=== PATIENT | male | born 1990 | race Caucasian/White ===

== ENCOUNTER 2025-01-05 18:37 | Observation (INO) | payer OTHER, SELFPAY ==
--- OUTSIDE RECORDS SUMMARY | 2025-01-05 18:40 | XMS_ITS | Clinical Summary ---
Author Organization [facility] Address [address] [place] [id number] Care Team Providers Care Xray Tech Name Role Phone None, Provider MD Primary Care Provider Unavaila ble Allergies Active Allergy Reactions Criticality Noted Date Comments Escitalopram Nausea and Vomiting Low 02/16/2023 Haloperidol Other (see comment) 02/25/2022 Oral/facial TD symptoms Prochlorperazine Anxiety,Other (see comment) Low 04/11/2022 Causes anxiety Medications hydrOXYzine (ATARAX) 25 MG tablet Take 1 tablet (25 mg total) by mouth 4 (four) times daily as needed for Anxiety. Active ondansetron (ZOFRAN) 4 MG tablet Take 1 tablet (4 mg total) by mouth every 8 (eight) hours as needed for Nausea. 20 tablet 05/13/2024 Active Family History Medical History Relation Comments Mental Health Brother SUICIDE Brother Cancer Mother Diabetes Mother Relation Status Comments Brother Mother BREAST WITH METS Social History Tobacco Use Types Packs/Day Years Used Date Smoking Tobacco: Every Day Cigarettes Smokeless Tobacco: Never Alcohol Use Standard Drinks/Week Comments Yes 0 (1 standard drink = 0.6 oz pur e alcohol) SOCIALLY Sex and Gender Information Value Date Recorded Sex Assigned at Not on file Legal Sex Male 7:25 PM CDT Gender Identity Not on file Sexual Orientation Not on file Last Filed Vital Signs Vital Sign Reading Time Taken Comments Blood Pressure 127/89 05/13/2024 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 Pulse 105 05/13/2024 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 Temperature 36.1 C (97 F) 05/13/2024 5:10 PM CATHEAD OPERATOR Respiratory Rate 13 05/13/2024 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 Oxygen Saturation 98% 05/13/2024 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 Inhaled Oxygen Concentration - - Weight 81.6 kg (180 lb) 05/13/2024 5:10 PM CATHEAD OPERATOR Height 193 cm (6' 4) 05/13/2024 5:10 PM CATHEAD OPERATOR Body Mass Index 21.91 05/13/2024 5:10 PM CATHEAD OPERATOR Plan of Treatment Health Maintenance Due Date Last Done Comments Annual Physical 1993 Hepatitis C 2008 DTaP, Tdap and Td Vaccines ( 2 - Tdap) 2009 12/29/1995 Hepatitis B Vaccines (1 of 3 - 19+ 3-dose series) 2009 Pneumococcal Vaccine: Pediat rics (0 to 5 Years) and At-Risk Patients (6 to 49 Years) (1 of 2 - PCV) 2009 COVID-19 Vaccine (2 - 2023-2 5 season) 2024 07/09/2021 HPV Vaccines Aged Out No longer eligi ble based on patient's age to complete this topic Meningococcal B Vaccine Aged Out No l onger eligible based on patient's age to complete this topic Meningococcal Vaccine Aged Out No benji matt eligible based on patient's age to complete this topic RSV Immunizations Under 20 Months Aged Out No longer eligible based on patient's age to complete this topic Advance Directives Documents on File Type Date Recorded 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 Advance Directives and Living Will 04/06/2014 12:00 AM ADVANCED DIRECTIVES Advance Directives and Living Will 04/06/2014 12:00 AM ADVANCED DIRECTIVES Advance Directives and Living Will 04/05/2014 12:00 AM ADVANCED DIRECTIVES Advance Directives and Living Will 04/05/2014 12:00 AM ADVANCED DIRECTIVES Advance Directives and Living Will 04/02/2014 12:00 AM ADVANCED DIRECTIVES Advance Directives and Living Will 04/02/2014 12:00 AM ADVANCED DIRECTIVES Advance Directives and Living Will 03/31/2014 12:00 AM ADVANCED DIRECTIVES Advance Directives and Living Will 03/31/2014 12:00 AM ADVANCED DIRECTIVES Advance Directives and Living Will 03/31/2014 12:00 AM ADVANCED DIRECTIVES Advance Directives and Living Will 06/26/2013 12:00 AM ADVANCED DIRECTIVES Advance Directives and Living Will 06/26/2013 12:00 AM ADVANCED DIRECTIVES Advance Directives and Living Will 04/28/2013 12:00 AM ADVANCED DIRECTIVES Advance Directives and Living Will 03/24/2013 12:00 AM ADVANCED DIRECTIVES Advance Directives and Living Will 12/01/2012 12:00 AM ADVANCED DIRECTIVES Advance Directives and Living Will 11/29/2012 12:00 AM ADVANCED DIRECTIVES Care Teams Xray Tech Relationship Specialty Start Date End Date None, Provider, PCP - General 04/03/18
--- OUTSIDE RECORDS SUMMARY | 2025-01-05 18:40 | XMS_ITS | Encounter Summary ---
Author Organization [facility] Address 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 No hx sz. +N/V * Auth/Cert (Routine) Specialty Diagnoses / Procedures Referred By Crescencio t Referred To Contact Emergency Medicine [facility] Emergency Department [address] [place] [address] Phone: tel: fax: Referral ID Status Reason Start Date Expiration Date Visits Re quested Visits Authorized [id number] 1 1 Encounter Details Date Type Department Care Team (Latest Contact Info) Description 01/02/2025 9:18 AM CDT - 01/05/2025 8:47 AM CDT Hospital Encounter [facility] Med Surg Step Down [facility] [address] [place] [address] Keegan Salgado MD [address] [place] [address] Kenneth Cooper MD [address] [place] [address] Edd Malone DO [address] [place] [address] Khris Gandhi MD [address] [place] [address] Alcohol intoxication delirium with moderate or severe use disorder ([facility]) Discharge Disposition: Home or Self Care Social History Tobacco Use Types Packs/Day Years Used Date Smoking Tobacco: Former Cigarettes Smokeless Tobacco: Never Alcohol Use Standard Drinks/Week Comments Yes 70 (1 standard drink = 0.6 oz pure alcohol) 10+ shots a day last 12/01/2023 Feeling Safe Answer Date Recorded Are you in a relationship wi th someone who hurts you emotionally and/or physically? No 01/03/2025 Food Insecurity Answer Date Recorded Patient needs follow up regardin 10/26/2024 Transportation Needs Answer Date Record ed Patient needs follow up regardin 10/26/2024 Housing Stability Answer Date Recorded Social/Environmental Concerns No concerns Utility Needs Answer Date Recorded Patient needs follow up regardin 10/26/2024 Sex and Gender Information Value Date Recorded Sex Assigned at Not on file Legal Sex Male 12:06 PM CDT Gender Identity Not on file Sexual Orientation Not on file documented as of this encounter Last Filed Vital Signs Vital Sign Reading Time Taken Comments Blood Pressure 129/82 01/05/2025 7:00 AM CDT Pulse 63 01/05/2025 7:00 AM CDT Temperature 36.5 C (97.7 F) 01/05/2025 7:00 AM CDT Respiratory Rate 12 01/05/2025 7:00 AM CDT Oxygen Saturation 98% 01/05/2025 7:00 AM CDT Inhaled Oxygen Concentration - - Weight 90.7 kg (200 lb) 01/02/2025 9:17 AM CDT Height 193 cm (6' 4) 01/02/2025 9:17 AM CDT Body Mass Index 24.34 01/02/2025 9:17 AM CDT documented in this encounter Discharge Summaries * Khris Gandhi MD - 01/05/2025 8:01 AM CDT [facility] Adult Hospitalist Discharge Summary Yaneth Henderson 34 y.o. male 1990 CSN: [id number] Date of Admission: 01/02/2025 Date of Discharge: 01/05/2025 Discharging Physician: Khris Gandhi MD LOS: 2 days PCP: No primary care provider on file. Activity: activity as tolerated. Dispo: home Diet: DIET GENERAL Effective Now Code Status at Discharge: Full Code Wound Care: None needed Hospital Course: Yaneth Henderson, a 34-year-old male with a history of alcohol use disorder and depression, was admitted to [facility] on 01/02/2025 for acute alcohol withdrawal. 1 2 He reported consuming 15-20 shots of vodka daily, with his last drink on the morning of admission. 1 3 On presentation, his ethanol level was 130 mg/dL. 1 He was initially treated with IV phenobarbital in the emergency departmentand continued on a phenobarbital taper during his hospitalization. 1 3 The Clinical [place] Withdrawal Assessment for Alcohol (CIWA) protocol was utilized, and lorazepam was administered as needed.4 5 3 Supportive care included IV fluids, thiamine, and folic acid supplementation. He was provided resources for alcohol cessation and encouraged heavily to abstain fully from alcohol going forward.Patient improved significantly with above management and stable for discharge. Follow-up with PCP for further management. Nutritional status and in-house recommendations: Current Diet and/or Nutritional Supplementation ordered: DIET GENERAL Effective Now Admitting Dx: <principal problem not specified> Discharge Diagnoses: Active Hospital Problems Diagnosis Alcohol intoxication delirium with moderate or severe use disorder ([facility]) Resolved Hospital Problems No resolved problems to display. Follow-up: No primary care provider on file. in 5 days. Labs Needing Follow Up: Discharge medications and new prescriptions: Medication List CONTINUE taking these medications acetaminophen 325 mg tablet Commonly known as: TYLENOL Take 2 Tablets (650 mg) by mouth every 6 hours as needed for Other (See Comment) (See admin instructions). Signed by: Dr. Louann Cadena Refills: 0 mirtazapine 30 mg tablet Commonly known as: REMERON Take 30 mg by mouth daily at bedtime. Refills: 0 Consultants: IP CONSULT TO SOCIAL WORK IP CONSULT TO SOCIAL WORK Discharge Lab Data: Lab Results Component Value Date WBC 7.6 01/02/2025 HGB 15.2 01/02/2025 HCT 44.6 01/02/2025 PLT 397 (H) 01/02/2025 NA 137 01/05/2025 CL 103 01/05/2025 K 3.4 (L) 01/05/2025 CO2 21 (L) 01/05/2025 BUN 7 01/05/2025 CREAT 0.93 01/05/2025 GLUCOSE 88 01/05/2025 AST 18 01/05/2025 ALT 19 01/05/2025 CRP <3.0 10/30/2024 Discharge Exam: BP 119/88 (BP Location: Left arm, Patient Position (BP): Supine) Pulse 82 Temp 97.8 ??F (36.6 ??C) (Oral) Resp 21 Ht 6' 4 (1.93 m) Wt 90.7 kg (200 lb) SpO2 95% BMI 24.34 kg/m?? Exam: Gen Alert, NAD Lungs clear to auscultation bilaterally Heart regular rate and rhythm, S1, S2 normal, no murmur, click, rub or gallop Abdomen soft, NT, ND Extremities No edema, WWP Discharge Condition: improving More than 33 minutes were spent in this discharge activity. Krhis Gandhi MD documented in this encounter Discharge Instructions * Discharge Instructions* Conchita Meredith RN - 01/03/2025 9:39 AM CDT If you do not have a PCP you may use the Physician Referral Service [facility] Physician Referral Service is a free, confidential, computerized service staffed by referral specialists. Our co-workers will help you find the names of several physicians that meet your requirements and provide you with their qualifications and background information. Referrals are based on your specific criteria: Requested specialty Office location Primary hospital practice site Specialized training Participation in insurance plans Call Wednesday through Wednesday at [phone] or . During your hospital stay you were cared for by the [facility] Hospitalists. Your primary care physicianwill have access to/or receive records including an updated list of your medications upon your discharge from the hospital. The hospitalist physician provided care while you were in the hospital, nowyour primary care physician will assume that responsibility. Please contact your primary care physician's office for a follow-up as instructed. Please contact your PCPs office regarding any questions or new problems, including medication refills or ANY health care concerns or questions such as but not limited to fever, chills, nausea, vomiting, shortness of breath, chest pain, rash, intolerance to medications, medication side effects, bleeding, abnormal or uncontrolled pain or any other problem which may indicate a need for further revaluation. documented in this encounter Medications at Time of Discharge mirtazapine (REMERON) 30 mg tablet Take 30 mg by mouth daily at bedtime. acetaminophen (TYLENOL) 325 mg tablet Take 2 Tablets (650 mg) by mouth every 6 hours as needed for Other (See Comment) (See admin instructions). 11/12/2024 documented as of this encounter Progress Notes * Carmelita Uribe RN - 01/04/2025 7:27 PM CDT End of Shift Note: Patient ambulated hallway with tech this shift. Neuro: A&O x4. CIWA Q2 completed this shift with scores 3-12. Complaints of headache treated per SEP. Resp: RA. CV: SA-SR with HR 60-90s. SBP 130-150s. Afebrile. GI: 5 BM this shift per patient, provider notified, PRN immodium administered per SEP. Complaints of nausea treated per SEP. : Unmeasured voids per patient bathroom. Skin: No acute skin changes this shift. * Khris Gandhi MD - 01/04/2025 10:46 AM CDT [facility] Adult Hospitalist Progress Note Admit Date: 01/02/2025 Date of Note: 01/04/2025, 10:46 AM LOS: 1 day Assessment and Plan: #Acute alcohol intoxication with subsequent withdrawal Admits to drinking 15-20 shots daily over the past ~2 weeks. Last drink 7/1 AM prior to admission. Ethanol level 130 on arrival. CIWA remains elevated but improving -continue phenobarbital taper + lorazepam prn per CIWA -continue zofran, reglan prn for nausea -s/p IVF -thiamine, FA supplementation -FLD, ADAT -SW for cessation resources Chronic medical issues: Depression: cw mirtazapine 30 qhs MJ use: last used a couple days prior to admission, encourage cessation Nutrition: Current Diet and/or Nutritional Supplementation ordered: DIET GENERAL Effective Now Quality/Safety/Core Measures/Disposition Planning: DVT Prophylaxis - enoxaparin PT POC OT POC Magana catheter:absent Current Code Status -Full Code Plan discussed with patient, questions answered. Estimated Discharge Day: 01/05/2025 Current Planned Disposition - Dispo: home pending clinical improvement related to withdrawal. Anticipate d/c tomorrow 01/05 pending progress. Subjective Previous history of present illness and review of systems have been reviewed today as documented inthe H&P on 01/02/2025; medications, labs, studies, notes, orders and consults have been reviewed.I have reviewed the notes from yesterday. -NAEO -pt generally feeling better today but reports ongoing anxiety/tremulousness. Nausea improving, tolerating PO Objective BP (!) 137/98 Pulse 85 Temp 98.4 ??F (36.9 ??C) (Oral) Resp 10 Ht 6' 4 (1.93 m) Wt 90.7 kg (200 lb) SpO2 99% BMI 24.34 kg/m?? Temp (24hrs), Av ??F (36.7 ??C), Min:97.6 ??F (36.4 ??C), Max:98.4 ??F (36.9 ??C) Incontinent small amount stool (01/03/25 5769) Exam: Gen Alert, NAD Lungs clear to auscultation bilaterally Heart regular rate and rhythm, S1, S2 normal, no murmur, click, rub or gallop Abdomen soft, NT, ND Extremities No edema, WWP Data: I have reviewed all new labs and studies resulted and pertinent ones are noted above Khris Gandhi MD Please contact me via Link Trigger Secure Chat from 7am-7pm After hours please place [facility] * Alanna Whittington PA-C - 01/04/2025 3:53 AM CDT [facility] CROSS COVER NOTE 01/04/25 3:53 AM Contacted for: tele reading arrhythmia Vitals: 01/04/25 0334 BP: (!) 125/95 Pulse: 71 Resp: 15 Temp: 97.6 ??F (36.4 ??C) SpO2: 99% Intervention/Follow up/Discussion: Reviewed chart, patient here for acute ETOH intoxication with subsequent withdrawal. Last drink 01/02. Tonight zigzag appliquer started reading sinus arrhythmia. EKGcompleted confirms arrhythmia with HR 56. Patient had a cardiac event monitor in December of this year which was unremarkable. Patient has been receiving phenobarbital taper and ativan. Patient is asymptomatic. Check electrolytes. Continue tele monitoring Alanna Whittington PA-C Cosigned by Poli Harris MD at 01/04/2025 6:34 AM CDT * Carmelita Uribe, ANNETTE - 01/03/2025 3:49 PM CDT End of Shift Note: Neuro: A&O x4. CIWA Q2 completed this shift with scores 9-17. Complaints of headache treated per SEP. Resp: RA. CV: SB-SR with HR 50-80s. SBP 120-150s. Afebrile. GI: 1 BM this shift per patient. : Urinal at bedside, see chart for urine output. * Oksana, Khris tSringer MD - 01/03/2025 11:02 AM CDT [facility] Adult Hospitalist Progress Note Admit Date: 01/02/2025 Date of Note: 01/03/2025, 11:02 AM LOS: 0 days Assessment and Plan: #Acute alcohol intoxication with subsequent withdrawal Admits to drinking 15-20 shots daily over the past ~2 weeks. Last drink 01/02 AM prior to admission. Ethanol level 130 on arrival -continue phenobarbital taper + lorazepam prn per CIWA -continue zofran, reglan prn for nausea -s/p IVF -thiamine, FA supplementation -FLD, ADAT -SW for cessation resources Chronic medical issues: Depression: cw mirtazapine 30 qhs MJ use: last used a couple days prior to admission, encourage cessation Nutrition: Current Diet and/or Nutritional Supplementation ordered: DIET FULL LIQUID Quality/Safety/Core Measures/Disposition Planning: DVT Prophylaxis - enoxaparin PT POC OT POC Magana catheter:absent Current Code Status -Full Code Plan discussed with patient, questions answered. Estimated Discharge Day: 01/05/2025 Current Planned Disposition - Dispo: home pending clinical improvement. Subjective Previous history of present illness and review of systems have been reviewed today as documented inthe H&P on 01/02/2025; medications, labs, studies, notes, orders and consults have been reviewed.I have reviewed the notes from yesterday. -loraz given overnight for anxiety -pt feeling a bit better today, less nauseated, but still overall not good Objective BP (!) 154/95 Pulse 79 Temp 98.3 ??F (36.8 ??C) Resp 21 Ht 6' 4 (1.93 m) Wt 90.7 kg (200lb) SpO2 98% BMI 24.34 kg/m?? Temp (24hrs), Av.5 ??F (36.9 ??C), Min:98.3 ??F (36.8 ??C), Max:98.6 ??F (37 ??C) Incontinent small amount stool (01/03/25 033) Exam: Gen Alert, NAD Lungs clear to auscultation bilaterally Heart regular rate and rhythm, S1, S2 normal, no murmur, click, rub or gallop Abdomen soft, non-tender. Bowel sounds normal. No masses, No organomegaly Extremities extremities normal, atraumatic, no cyanosis or edema Data: I have reviewed all new labs and studies resulted and pertinent ones are noted above Khris Gandhi MD Please contact me via Link Trigger Secure Chat from 7am-7pm After hours please place E-ticket to [facility] * Vaughn Ross PA-C - 01/03/2025 6:04 AM CDT [facility] CROSS COVER NOTE 01/03/25 6:04 AM Contacted for: pt c/o anxiety 02/11 request something to help. was given. Possible Ativan?CIWA 13 Vitals: 01/03/25 0339 BP: 134/85 Pulse: 70 Resp: 10 Temp: 98.3 ??F (36.8 ??C) SpO2: 98% Intervention/Follow up/Discussion: Reviewed chart, patient here for alcohol withdrawal on phenobarb. -1x 0.5mg PO ativan Vauhgn Ross PA-C Cosigned by Poli Harris MD at 01/03/2025 6:08 AM CDT * Emmy Birch APRN - 01/02/2025 7:48 PM CDT [facility] CROSS COVER NOTE 01/02/25 7:48 PM Contacted for: pt in for ETOH withdrawal. CIWA 17 c/o anxiety 02/11 . Pheno given. Pt requesting something else if possible. Vitals: 01/02/25 1934 BP: (!) 125/95 Pulse: (!) 113 Resp: 19 Temp: 98.5 ??F (36.9 ??C) SpO2: 97% Intervention/Follow up/Discussion: Reviewed chart, patient here for acute alcohol withdrawal, depression. Ativan 1mg IV x1 Emmy Birch APRN Cosigned by Ag Grey DO at 01/02/2025 10:36 PM CDT documented in this encounter H&P Notes * Kaylyn Sousa NP - 01/02/2025 1:09 PM CDT [facility] Adult Hospitalist Admission H & P Patient Name: Yaneth Henderson Primary Care Doctor: No primary care provider on file. Chief Complaint: alcohol withdrawal Assessment and Plan: Acute alcohol withdrawal: drinks 15-20 shots of Vodka daily. No history of withdrawal seizures. Started vomiting 01/01, last drink 01/02. S/p IV phenobarb in ED. Continue taper. Use Zofran, Reglan PRN for nausea/vomiting. Continue IV fluids. Magnesium, thiamine, folic acid. Depression: DERMATOLOGY NURSE remeron Marijuana use: last used a couple of days ago. History of cannabis hyperemesis syndrome. Encourage cessation. DVT prophylaxis: Lovenox Home medication list reviewed: DERMATOLOGY NURSE remeron only PT/OT: no Code Status: full Dispo: anticipate d/c in 2 days HPI: Patient is a 34 y.o. male with known alcohol use disorder, depression who presents with complaint of alcohol withdrawal. He says he drinks 15 or more shots of Vodka daily. He says he had a normal weekend. He was unable to eat yesterday (01/01), only having Gatorade and vodka. Started vomiting 01/01 night. He presented to the ED 01/02 for concern for alcohol withdrawal and continued vomiting. He used marijuana a couple of days ago. Of note, he presented to OSH 12/07, 12/11 and again 12/22 for alcohol withdrawal symptoms. He says he wants to go to sober living eventually and tried sober living a couple of months ago. Past Medical History: Diagnosis Date Anxiety Clostridioides difficile infection 02/25/2022 12/03/23 02/25/2022 Depression Past Surgical History: Procedure Laterality Date ENDOSCOPY, COLON, SCREENING HX CHOLECYSTECTOMY Prior to Admission Medications: Current Outpatient Medications Medication Instructions acetaminophen (TYLENOL) 650 mg, Oral, EVERY 6 HOURS PRN aluminum-magnesium HYDROXIDE-simethicone (MAALOX PLUS ES) 400-400-40 mg/5 mL suspension 15 mL, Oral, EVERY 6 HOURS PRN cyanocobalamin (VITAMIN B-12) 500 mcg, Sublingual, DAILY multivitamin tx with iron and folic acid tablet 18-400 mg-mcg Tablet 1 Tablet, Oral, DAILY ondansetron (ZOFRAN ODT) 4 mg Tablet, Rapid Dissolve Dissolve 1 Tablet (4 mg) on the tongue, then swallow with saliva every 8 hours as needed for Nausea/Vomiting. Allergies Allergen Reactions Haloperidol Lactate Other (See Comments) Oral/facial TD symptoms Prochlorperazine Other (See Comments) Causes anxiety Promethazine Other (See Comments) Causes anxiety Escitalopram Nausea and Vomiting Family History Problem Relation Name Age of Onset No Known Problems Father Cancer Mother Liver Breast Cancer Mother Diabetes Mother Lung Cancer Maternal Grandmother Cancer Maternal Grandfather Diabetes Paternal Grandmother Diabetes Paternal Grandfather Heart Disease Other Diabetes Other Social History: Social History Tobacco Use Smoking status: Former Current packs/day: 0.50 Types: Cigarettes Smokeless tobacco: Never Substance Use Topics Alcohol use: Yes Alcohol/week: 70.0 standard drinks of alcohol Types: 70 Shots of liquor per week Comment: 10+ shots a day last 12/01/2023 Review of Systems General: Patient denies weakness, fatigue, fever, chills, night sweats. Hematopoetic: Patient denies anemia, bleeding, easy bruisability. 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 Eye: Patient denies visual changes, diploplia. Ears: Patient denies hearing loss, pain, vertigo, tinnitus. Nose and throat: Patient denies congestion, postnasal drip, sore throat, epistaxis. Cardiovascular: Patient denies chest pain, edema, palpitations. Respiratory: Patient denies shortness of breath, cough, sputum production. GI: +nausea, vomiting. Patient denies diarrhea, constipation, abdominal pain. : Pt denies dysuria, frequency, urgency, hematuria. Muskuloskeletal: Patient denies joint pain, swelling, weakness. Integumentary: Patient denies rash, lesions, itching. Endocrine: Patient denies polydipsia, polyuria, polyphasia, nervousness. Psychiatric: Patient denies depression, anxiety, suicidal or homicidal ideations. Physical Exam: Vitals: BP (!) 160/110 Pulse (!) 101 Temp 98.7 ??F (37.1 ??C) (Oral) Resp 16 Ht 6' 4 (1.93m) Wt 90.7 kg (200 lb) SpO2 99% BMI 24.34 kg/m?? General: Head: normocephalic, atraumatic Eyes: pupils PERRL, EOMs intact, sclera non icteric Nares: clear, no exudate Oropharynx: clear, mucous membranes pink and moist Neck: supple, trachea midline, no JVD, no lymphadenopathy Heart: S1 S2, RRR, no murmur, rub or gallop Lungs: clear to auscultation bilaterally, respirations even non labored, no accessory muscle use Abdomen: rounded, soft, non tender, no hepatomegaly, no splenomegaly, no bruit, bowel sounds present Extremities: no clubbing, cyanosis or edema, 2+ bilateral radial pulses, 2+ bilateral DP pulses Skin: pink, warm and dry, no rash or lesions noted Neuro: pt alert and oriented x 3, CN II-XII grossly intact non focal, mood appropriate. Data Base: Results for orders placed or performed during the hospital encounter of 01/02/25 (from the past 24 hours) CBC WITH DIFFERENTIAL Result Value Ref Range WBC 7.6 4.0 - 9.8 K/uL RBC 5.28 4.50 - 5.40 M/uL HEMOGLOBIN 15.2 13.6 - 16.5 g/dL HEMATOCRIT 44.6 40.0 - 48.0 % MCV 84.5 82.0 - 99.0 fL MCH 28.8 27.2 - 32.6 pg MCHC 34.1 31.5 - 35.5 g/dL RDW 14.3 11.5 - 14.5 % RDW-STDEV 43.8 37.1 - 48.7 fL PLATELETS 397 (H) 140 - 350 K/uL MPV 9.3 9.3 - 12.4 fL NEUTROPHILS 63 % LYMPHOCYTES 26 % MONOCYTES 8 % EOSINOPHILS 2 % BASOPHILS 1 % IMMATURE GRANULOCYTES 1 % NEUTROPHIL ABSOLUTE 4.79 1.90 - 7.00 K/uL LYMPHOCYTE ABSOLUTE 1.93 0.70 - 4.50 K/uL MONOCYTE ABSOLUTE 0.63 0.10 - 1.30 K/uL EOSINOPHIL ABSOLUTE 0.11 0.00 - 0.70 K/uL BASOPHILS ABSOLUTE 0.08 0.00 - 0.20 K/uL IMMATURE GRANULOCYTES ABSOLUTE 0.04 (H) 0.00 - 0.03 K/uL COMPREHENSIVE METABOLIC PANEL Result Value Ref Range SODIUM 142 136 - 145 mmol/L POTASSIUM 3.5 3.5 - 5.0 mmol/L CHLORIDE 102 98 - 107 mmol/L CO2 24 22 - 29 mmol/L CALCIUM 9.5 8.6 - 10.2 mg/dL BUN 6 6 - 20 mg/dL CREATININE 1.11 0.67 - 1.17 mg/dL GLUCOSE 108 (H) 74 - 99 mg/dL TOTAL PROTEIN 7.7 6.7 - 8.6 g/dL ALBUMIN 4.4 3.5 - 5.2 g/dL BILIRUBIN TOTAL 0.4 0.0 - 1.2 mg/dL ALKALINE PHOSPHATASE 117 40 - 129 U/L AST 29 <41 U/L ALT 36 <42 U/L GFR >60 >=60 mL/min/1.73 sq meter ANION GAP 16 8 - 16 mmol/L ETHANOL LEVEL Result Value Ref Range ETHANOL 130.00 (H) <10.10 mg/dL ETHANOL % 0.13 %w/v LIPASE Result Value Ref Range LIPASE 23 13 - 60 U/L Kaylyn Sousa [facility] Hospitalists *Message me through Secure Chat in Epic -7p From contact the [facility]-Hospitalist via this ticket system Cosigned by Khris Gandhi MD at 01/02/2025 2:25 PM CDT Associated attestation - Khris Gandhi MD - 01/02/2025 2:25 PM CDT [facility] Hospitalist Attending Note Patient seen and examined with the Nurse Practitioner (Kaylyn Sousa) on 01/02/2025. I have reviewed thenote as dictated and agree with the assessment and plan, as dictated, with the exceptions, if any, noted below. Exam: General: Alert, ill appearing Heart: Borderline tachy but otherwise normal rhythm, no m/g/r Lungs: Clear to auscultation bilaterally Abdomen: Soft, NT, ND, + BS Extremities: No edema WWP Data Review: Discussed and as indicated above. Assessment/Plan: #Intractable N/V #Acute alcohol intoxication with high risk for withdrawal Reports 15-20 shots of alcohol daily over the past 2 weeks. Has multiple hospitalizations this yeardue to acute intoxication/withdrawal. Ethanol level 130 on admission -s/p IV phenobarbital in ED, continue taper -CIWA protocol -IVF -supportive cares -thiamine/FA supplementation -SW consult for cessation resources Rest of plan per [employer] H&P Khris Gandhi MD [facility] Hospitalist documented in this encounter ED Notes * Jeff Higginbotham RN - 01/02/2025 12:05 PM CDT made aware that patient is vomiting again and states feeling more sick. * Jeff Higginbotham RN - 01/02/2025 11:37 AM CDT Patient resting quietly in stretcher at this time. Patient has eyes closed and breathing normal with equal rise and fall of chest. * Keegan Salgado MD - 01/02/2025 9:19 AM CDT PHYSICIAN IN TRIAGE NOTE: The patient was seen in my role as a physician in triage. The physician in triage role is designed to expedite the initial diagnostic workup and does not substitute for a full emergency department evaluation. Triage order, wait times, SUZANNE levels and traditional triage proce dures are outside the scope of this role. In short, the patient with h/o cannabis hyperemesis, CSOOTER, alcohol abuse, polysubstance abuse presents with NV. Limited exam in triage shows nontoxic, Hemodynamically stable. Plan lab and IVFs. The patient will be moved to ED when a room is available. * Kenneth Cooper MD - 01/02/2025 9:14 AM CDT HISTORY OF PRESENT ILLNESS History of Present Illness The patient presents for evaluation of alcohol withdrawal. He reports that his last consumption of alcohol was during lunch, which he subsequently vomited. Hehas a history of experiencing withdrawal symptoms, including tremors, a rapid heart rate, and nausea. He has been experiencing persistent vomiting throughout the night. PAST MEDICAL HISTORY REVIEWED MEDICAL: Patient has a past medical history of Anxiety, Clostridioides difficile infection (02/25/2022), andDepression. SURGICAL: Patient has a past surgical history that includes cholecystectomy and Colonoscopy. ALLERGIES Haloperidol lactate, Prochlorperazine, Promethazine, and Escitalopram PHYSICAL EXAM INITIAL VS BP: 125/77 (01/02/25916), Heart Rate: (!) 130 bpm (01/02/25916), Resp: 16 (01/02/25916), Pulse: (!) 130 (01/02/25916), Temp: 98.7 ??F (37.1 ??C) (01/02/25916), Temp src: Oral (01/02/25916), SpO2: 97 % (01/02/25916), Height: 6' 4 (193 cm) (01/02/25916), Weight: 90.7 kg (200 lb) (01/02/25916), BMI (Calculated): 24.35 (01/02/25916) No LMP for male patient. Blood pressure (!) 160/110, pulse (!) 101, temperature 98.7 ??F (37.1 ??C), temperature source Oral, resp. rate 16, height 6' 4 (1.93 m), weight 90.7 kg (200 lb), SpO2 99%. Physical Exam Physical Exam General Appearance: well appearing. Vital signs: stable vital signs. HEENT: Pupils are 4 mm, oral exam reveals moist mucous membranes. Respiratory: Within normal limits. Skin: Warm and dry, no rash. Neurological: Mild tremor noted in the right hand, no asterixis observed. DIAGNOSTICS LAB: CBC WITH DIFFERENTIAL - Abnormal Result Value WBC 7.6 RBC 5.28 HEMOGLOBIN 15.2 HEMATOCRIT 44.6 MCV 84.5 MCH 28.8 MCHC 34.1 RDW 14.3 RDW-STDEV 43.8 PLATELETS 397 (*) MPV 9.3 NEUTROPHILS 63 LYMPHOCYTES 26 MONOCYTES 8 EOSINOPHILS 2 BASOPHILS 1 IMMATURE GRANULOCYTES 1 NEUTROPHIL ABSOLUTE 4.79 LYMPHOCYTE ABSOLUTE 1.93 MONOCYTE ABSOLUTE 0.63 EOSINOPHIL ABSOLUTE 0.11 BASOPHILS ABSOLUTE 0.08 IMMATURE GRANULOCYTES ABSOLUTE 0.04 (*) COMPREHENSIVE METABOLIC PANEL - Abnormal SODIUM 142 POTASSIUM 3.5 CHLORIDE 102 CO2 24 CALCIUM 9.5 BUN 6 CREATININE 1.11 GLUCOSE 108 (*) TOTAL PROTEIN 7.7 ALBUMIN 4.4 BILIRUBIN TOTAL 0.4 ALKALINE PHOSPHATASE 117 AST 29 ALT 36 GFR >60 ANION GAP 16 ETHANOL LEVEL - Abnormal ETHANOL 130.00 (*) ETHANOL % 0.13 LIPASE - Normal LIPASE 23 URINALYSIS WITH REFLEX MICROSCOPIC DRUG SCREEN, URINE RADIOLOGY: No orders to display EKG: Sinus rhythm at 98 normal axis normal intervals no concerning findings on EKG PROCEDURES Procedures MEDICAL DECISION MAKING AND PLAN OF CARE Assessment & Plan Initial Assessment: Patient presents with alcohol withdrawal symptoms including tremors, nausea, and vomiting. Last drink was at lunch but vomited it up. Vomiting all night. Mild tremor in the right hand, no asterixis. Pupils 4 mm, moist mucous membranes. ED Course: - Assessed patient for alcohol withdrawal symptoms. - Noted mild tremor in the right hand, no asterixis. - Pupils 4 mm, moist mucous membranes. Final Assessment: Patient with alcohol withdrawal, experiencing tremors, nausea, and vomiting. Symptoms managed in the ED. Clinical Impression: - Alcohol withdrawal MDM Components Evaluation: - Number of Differential Diagnoses or Management Options: Alcohol withdrawal - Amount and Complexity of Data Reviewed: Patient history, physical examination - Risk of Complication and Morbidity or Mortality: Moderate risk due to potential complications from alcohol withdrawal. 1:18 PM Alcohol is 130 and does not appear to be acutely withdrawing. Patient is continue to vomit and has normal labs but cannot keep anything down. Patient will be admitted to medicine Medical Decision Making Amount and/or Complexity of Data Reviewed Labs: ordered. ECG/medicine tests: ordered. Risk Prescription drug management. Clinical Scoring & Consults Medications Administered During the ED Stay from 01/02/2025 0915 to 01/02/2025 1318 Date/Time Order Dose Route Action 01/02/2025 1012 CDT sodium chloride 0.9 % bolus solution 1,000 mL 0 mL IV Stopped 01/02/2025 0942 CDT sodium chloride 0.9 % bolus solution 1,000 mL 1,000 mL IV New Bag 01/02/2025 0942 CDT ondansetron (ZOFRAN) 4 mg/2 mL injection 4 mg 4 mg IV Given 01/02/2025 0945 CDT LORazepam (ATIVAN) 2 mg/mL injection 2 mg 2 mg IV Given 01/02/2025 1212 CDT ondansetron (ZOFRAN) 4 mg/2 mL injection 4 mg 4 mg IV Given 01/02/2025 1030 CDT sodium chloride 0.9 % infusion -- IV New Bag 01/02/2025 1251 CDT PHENobarbital (LUMINAL) 130 mg/mL injection 130 mg 130 mg IV Given 01/02/2025 1251 CDT sodium chloride 0.9 % bolus solution 1,000 mL 1,000 mL IV New Bag . New Prescriptions for this Encounter LAST VS BP: (!) 160/110 (01/02/25 1130), Heart Rate: (!) 102 bpm (01/02/25 1130), Resp: 16 (01/02/25916),Pulse: (!) 101 (01/02/251129), Temp: 98.7 ??F (37.1 ??C) (01/02/25916), Temp src: Oral (917), SpO2: 99 % (01/02/251129) CLINICAL IMPRESSION Diagnosis None DISPOSITION, EDUCATION AND MEDICATION RECONCILIATION Medications reconciled. See after visit summary for patient education on discharged patients. documented in this encounter Miscellaneous Notes * Care Plan - Talita Rose RN - 01/04/2025 3:44 PM CDT Problem: Discharge Planning Goal: Identify discharge needs upon admission and through discharge Description: Outcome: Progressing Still here because-ETOH,CIWA DC PLAN:DC- Independently- patient states he is between homes living in his car. [facility] Talita Rose RN/[facility] [phone] * Care Plan - Elma Yi RN - 01/04/2025 7:14 AM CDT Shift Summary Safety checks were consistently completed, and the patient was moving independently. CIWA scores fluctuated, peaking at 13, but decreased to 4 by the end of the shift. Blood pressure and pulse showed some fluctuations, with periods of bradycardia and irregular rhythmnoted. Provider made aware and EKG completed with no other orders. Pt asymptomatic. Overall, the patient remained stable with no falls or injuries reported. Safety/Fall: Absence of fall, injury, harm during hospitalization: Safety checks were consistently completed throughout the shift, and the patient was ambulating independently with no need for additional high fall risk interventions. Talent Development Consultant: Remains free from injury or complications during alcohol withdrawal.: CIWA scores fluctuated, peaking at 13, but decreased to 4 by the end of the shift, with anxiety levels also reducing. Ativan only given once through the night. Achieve optimal cardiovascular function by discharge or maintain baseline function: Blood pressure and pulse showed some fluctuations, with periods of bradycardia and irregular rhythm noted. Providermade aware and EKG completed. Pt remained asymptomatic * Care Plan - Jami Guy RN - 01/03/2025 5:56 AM CDT Received bedside report and assumed care of Yaneth Henderson from RN. Head to toe assessment documented in flow sheet. Patient updated on plan of care. Questions and concerns answered. No complaints of pain at this time. Ambulates with Steady gait. Pt able to turn and reposition self in bed Patient has had no falls at this time and is fall risk level Low Fall precautions maintained, call light and personal items in reach, and bed low with wheels locked.. Shift Summary Blood pressure and heart rate improved over the shift. Tremors decreased to no tremor by the end of the shift. Antiemetics were administered for nausea. Safety checks were consistently completed throughout the shift. Overall, the patient showed improvement in cardiovascular and withdrawal symptoms. Safety/Fall: Absence of fall, injury, harm during hospitalization: Safety checks were consistently completed throughout the shift, and the fall risk remained low with no additional interventions needed. Talent Development Consultant: Remains free from injury or complications during alcohol withdrawal.: Tremors decreased to no tremor by the end of the shift, and anxiety levels fluctuated but remained moderate. Achieve optimal cardiovascular function by discharge or maintain baseline function: Blood pressure and heart rate improved over the shift, with the final readings closer to normal ranges. Achieve optimal gastrointestinal function by discharge or maintain baseline function: Antiemetics were administered for nausea, and a small amount of stool was noted. * Care Plan - Conchita Meredith RN - 01/02/2025 3:57 PM CDT Care Management Initial Assessment Initial Discharge Planning Assessment completed. Discussed Care Management's role and Discharge planning. Does the patient have family and/or a caregiver that is willing, able and available to assist if needed? No - Reason: Lives alone Comments: Patient independent with care and ADL's, lives alone. Ambulates independent with assisteddevices. Patient states he lives in his car at the moment, not sure if he can go to the home listed, CM offered housing assistance resources, patient decline, however did accept alcohol cessation resources. CM role discussed with patient, CM contact information available for further needs. Patient Discharge Planning Goal: Homeless living in car Patient will potentially discharge to a SNF/NH? No Care Management visited with: patient via in person. Prior to admission, patient resides at: Homeless. Prior to admission, living arrangements: lives alone. Prior to admission, patient's functional level:independent; uses N/A for mobility; needs assistancewith iADLs: N/A Community Ambulator: yes Prior to admission, the patient has the following DME? N/A Services in the home/community: none Receives hemodialysis? No Emergency contact(s): Extended Emergency Contact Information Primary Emergency Contact: Carmelita Hawley Mobile Relation: Sister Prescription coverage: yes Preferred Pharmacy verified: [id number] - [place], [place] - [address] [place] [address] AT [facility] Insurance coverage verified: Payor: MAYTETNA / Plan: [place] [id number] POS II / Product Type: POS / Secondary Insurance:N/A Medicaid Status: NA Has VA Benefits: no Employment Status: employed PCP verified as: No primary care provider on file. Patient does not assistance with PCP, CM will upload PCP referral to [facility] Patient has had a stay at an acute care hospital in the last 30 days. Recent Falls?: no falls Plan for transportation at discharge: Family may assist, patient not sure Care Management contact information provided. Care Management will continue to follow and assist asneeded. Conchita Meredith RN BSN Farm Field Manager [phone] Problem: Discharge Planning Goal: Identify discharge needs upon admission and through discharge Description: Outcome: Progressing * Gen AI ED Handoff - GENERATIVE AI HANDOFF NOTE - 01/02/2025 2:30 PM CDT SITUATION: Patient ( ) is a 34-year-old male who has been in the ER for 5 hours. He came to the ER due to withdrawal. The patient's most recent care team on record included: Jeff Higginbohtam. BACKGROUND: Drips the patient are on include: sodium, last started at 2025-01-02 10:30:00. This patient has allergies to Haloperidol Lactate, Prochlorperazine, Promethazine, Escitalopram. ASSESSMENT: Patient's most recent vitals recorded in flowsheets were as follows: BP: 156/108 T: 98.8 F RR: 16 SPO2: 94% HR: 105 WT: 200.0 LBS BMI: 24.34 Most recent Glucose Value: 108. Completed: 2025-01-02 10:32. Lines most recently placed include: angiocath at 2025-01-02 09:42. Last recorded oxygen source was room air. The patient presents with alcohol withdrawal symptoms including tremors, nausea, and vomiting. He has a history of alcohol use disorder, depression, anxiety, and Clostridioides difficile infection. The patient reports consuming 15-20 shots of vodka daily and has had multiple hospitalizations this year due to acute intoxication/withdrawal. He has a mild tremor in the right hand and elevated blood pressure (160/110). The patient also has a history of cannabis hyperemesis syndrome. RECOMMENDATION: Continue tapering IV phenobarbital for alcohol withdrawal management. Implement CIWA protocol and provide supportive care with IV fluids, thiamine, folic acid, and magnesium supplementation. Administer Zofran and Reglan PRN for nausea/vomiting. Consult social work for cessation resources. Encourage cessation of marijuana use. Initiate DVT prophylaxis with Lovenox. Monitor blood pressure and heart rate due to elevated readings. Consider psychiatric evaluation for depression management. Anticipate discharge in 2 days. *This summary was created by generachely AI. The responses are meant to enhance, not replace normal workflow. Please contact the ED nurse for any additional information.* documented in this encounter Plan of Treatment Not on file documented as of this encounter Procedures Procedure Name Priority Date/Time Associated Diagnosis Comments COMPREHENSIVE METABOLIC PANEL Routine 01/05/2025 5:27 AM CDT COMPREHENSIVE METABOLIC PANEL Routine 01/04/2025 5:15 AM CDT EKG 12-LEAD Stat 01/04/2025 3:46 AM CDT MAGNESIUM LEVEL Routine 01/03/2025 3:20 AM CDT COMPREHENSIVE METABOLIC PANEL Routine 01/03/2025 3:20 AM CDT DRUG SCREEN, URINE Stat 01/02/2025 7: 42 PM CDT URINALYSIS W/REFLEX MICROSCOPIC Stat 01/02/2025 7:42 PM CDT MAGNESIUM LEVEL Stat 01/02/2025 2:10 PM CDT CBC WITH DIFFERENTIAL Stat 01/02/2025 9:42 AM CDT LIPASE Stat 01/02/2025 9:42 AM CDT ETHANOL LEVEL Stat 01/02/2025 9:42 AM CDT COMPREHENSIVE METABOLIC PANEL Stat 01/02/2025 9:42 AM CDT EKG 12-LEAD Stat 01/02/2025 9:38 AM CDT documented in this encounter Results * (ABNORMAL) COMPREHENSIVE METABOLIC PANEL (01/05/2025 5:27 AM CDT) SODIUM 137 136 - 145 mmol/L 01/05/2025 6:27 AM CDT [facility] POTASSIUM 3.4(L) 3.5 - 5.0 mmol/L 01/05/2025 6:27 AM CDT [facility] CHLORIDE 103 98 - 107 mmol/L 01/05/2025 6:27 AM CDT [facility] CO2 21(L) 22 - 29 mmol/L 01/05/2025 6:27 AM CDT [facility] CALCIUM 9.0 8.6 - 10.2 mg/dL 01/05/2025 6:27 AM CDT [facility] BUN 7 6 - 20 mg/dL 01/05/2025 6:27 AM CDT [facility] CREATININE 0.93 0.67 - 1.17 mg/dL 01/05/2025 6:27 AM CDT [facility] GLUCOSE 88 74 - 99 mg/dL 01/05/2025 6:27 AM CDT [facility] TOTAL PROTEIN 6.4(L) 6.7 - 8.6 g/dL 01/05/2025 6:27 AM CDT [facility] - [facility] ALBUMIN 3.9 3.5 - 5.2 g/dL 01/05/2025 6:27 AM [facility] BILIRUBIN TOTAL 0.3 0.0 - 1.2 mg/dL 01/05/2025 6:27 AM [facility] ALKALINE PHOSPHATASE 102 40 - 129 U/L 01/05/2025 6:27 AM [facility] AST 18 <41 U/L 01/05/2025 6:27 AM [facility] ALT 19 <42 U/L 01/05/2025 6:27 AM [facility] GFR >60 >=60 mL/min/1.7 3 sq meter 01/05/2025 6:27 AM [facility] Comment:eGFR calculated with 2020 CKD-EPI equation. Vegetarian diet, extremely high or low muscle mass, and may affect results. Cystatin C with Glomerular Filtration Rate is a suitable alternative for these patients. ANION GAP 13 8 - 16 mmol/L 01/05/2025 6:27 AM [facility] Blood Venipuncture / Unknown 01/05/2025 5:27 AM CDT 01/05/2025 5:36 AM T [facility] - 01/05/2025 6:27 AM CDT Samples containing indocyanine green cause interferences on Total and/or Direct Bilirubin and must not be measured. Kaylyn Sousa NP CHEMISTRY ORDERABLES Final Resul t [facility] TIARA# [id number] [address] [place] [address] * (ABNORMAL) COMPREHENSIVE METABOLIC PANEL (01/04/2025 5:15 AM CDT) SODIUM 138 136 - 145 mmol/L 01/04/2025 6:28 AM [facility] POTASSIUM 3.4(L) 3.5 - 5.0 mmol/L 01/04/2025 6:28 AM [facility] CHLORIDE 105 98 - 107 mmol/L 01/04/2025 6:28 AM [facility] - . [place] CO2 22 22 - 29 mmol/L 01/04/2025 6:28 AM [facility] - . [facility] CALCIUM 8.7 8.6 - 10.2 mg/dL 01/04/2025 6:28 AM [facility] - [facility] Comment: Significant change from prior result, correlate clinically and redraw if necessary. BUN 6 6 - 20 mg/dL 01/04/2025 6:28 AM [facility] - . [facility] CREATININE 0.92 0.67 - 1.17 mg/dL 01/04/2025 6:28 AM [facility] - . [facility] GLUCOSE 98 74 - 99 mg/dL 01/04/2025 6:28 AM [facility] - . [facility] TOTAL PROTEIN 6.0(L) 6.7 - 8.6 g/dL 01/04/2025 6:28 AM [facility] - . [facility] ALBUMIN 3.6 3.5 - 5.2 g/dL 01/04/2025 6:28 AM [facility] - . [facility] BILIRUBIN TOTAL 0.5 0.0 - 1.2 mg/dL 01/04/2025 6:28 AM [facility] - [facility] ALKALINE PHOSPHATASE 96 40 - 129 U/L 01/04/2025 6:28 AM [facility] - . [facility] AST 20 <41 U/L 01/04/2025 6:28 AM [facility] - . [facility] ALT 23 <42 U/L 01/04/2025 6:28 AM [facility] - . [facility] GFR >60 >=60 mL/min/1.7 3 sq meter 01/04/2025 6:28 AM [facility] - [facility] Comment:eGFR calculated with 2020 CKD-EPI equation. Vegetarian diet, extremely high or low muscle mass, and may affect results. Cystatin C with Glomerular Filtration Rate is a suitable alternative for these patients. ANION GAP 11 8 - 16 mmol/L 01/04/2025 6:28 AM T [facility] Blood Venipuncture / Unknown 01/04/2025 5:15 AM CDT 01/04/2025 5:41 AM CDT Narrative [facility] - 01/04/2025 6:28 AM CDT Samples containing indocyanine green cause interferences on Total and/or Direct Bilirubin and must not be measured. us Kaylyn Sousa NP CHEMISTRY ORDERABLES Final Resul t [facility] CLIA# [id number] [address] [place] [address] * EKG 12-LEAD (01/04/2025 3:46 AM CDT) 01/04/2025 3:46 AM CDT Narrative INTERFACE SYSTEM - 01/04/2025 1:[address] [place] [address] Test Date: 2025-01-04 Pat Name: YANETH HENDERSON Department: 58 Room: [address] [place] [address] Gender: Male Contract Loader: [id number] : 1990 Requested By: KEEGAN Godwin Order Number: [id number] Anurag POPE: Bernardo Mcwilliams Measurements Intervals [place] Rate: 56 P: 47 LA: 149 QRS: 54 QRSD: 88 T: 65 QT: 420 QTc: 407 Interpretive Statements SINUS BRADYCARDIA WITH MARKED SINUS ARRHYTHMIA BASELINE ARTIFACT IS PRESENT Electronically Signed On 01-04-2025 13:03:23 CDT by Bernardo Mcwilliams Procedure Note Bernardo Mcwilliams MD - 01/04/2025 [address] [place] [address] Test Date: 2025-01-04 Pat Name: YANETH HENDERSON Department: 58 Room: [address] [place] [address] Gender: Male Contract Loader: [id number] : 1990 Requested By: KEEGAN Godwin Order Number: [id number] Reading MD: Bernardo Mcwilliams Measurements Intervals [place] Rate: 56 P: 47 LA: 149 QRS: 54 QRSD: 88 T: 65 QT: 420 QTc: 407 Interpretive Statements SINUS BRADYCARDIA WITH MARKED SINUS ARRHYTHMIA BASELINE ARTIFACT IS PRESENT Electronically Signed On 01-04-2025 13:03:23 CDT by Bernardo Mcwilliams Alanna Whittington PA-C ECG ORDERABLES Final Resul t INTERFACE SYSTEM Refer to clinic/hospital department * (ABNORMAL) COMPREHENSIVE METABOLIC PANEL (01/03/2025 3:20 AM CDT) SODIUM 142 136 - 145 mmol/L 01/03/2025 4:23 AM T [facility] POTASSIUM 3.3(L) 3.5 - 5.0 mmol/L 01/03/2025 4:23 AM T [facility] CHLORIDE 111(H) 98 - 107 mmol/L 01/03/2025 4:23 AM T [facility] CO2 22 22 - 29 mmol/L 01/03/2025 4:23 AM T [facility] CALCIUM 7.5(L) 8.6 - 10.2 mg/dL 01/03/2025 4:23 AM T [facility] Comment:Significant change f rom prior result, correlate clinically and redraw if necessary. BUN 5(L) 6 - 20 mg/dL 01/03/2025 4:23 AM T [facility] CREATININE 0.88 0.67 - 1.17 mg/dL 01/03/2025 4:23 AM T [facility] GLUCOSE 99 74 - 99 mg/dL 01/03/2025 4:23 AM T [facility] TOTAL PROTEIN 5.1(L) 6.7 - 8.6 g/dL 01/03/2025 4:23 AM T [facility] ALBUMIN 3.3(L) 3.5 - 5.2 g/dL 01/03/2025 4:23 AM T [facility] Comment:Significant change f rom prior result, correlate clinically and redraw if necessary. BILIRUBIN TOTAL 0.4 0.0 - 1.2 mg/dL 01/03/2025 4:23 AM T [facility] ALKALINE PHOSPHATASE 87 40 - 129 U/L 01/03/2025 4:23 AM [facility] AST 14 <41 U/L 01/03/2025 4:23 AM [facility] ALT 19 <42 U/L 01/03/2025 4:23 AM [facility] GFR >60 >=60 mL/min/1.7 3 sq meter 01/03/2025 4:23 AM [facility] Comment:eGFR calculated with 2020 CKD-EPI equation. Vegetarian diet, extremely high or low muscle mass, and may affect results. Cystatin C with Glomerular Filtration Rate is a suitable alternative for these patients. ANION GAP 9 8 - 16 mmol/L 01/03/2025 4:23 AM [facility] Blood Venipuncture / Unknown 01/03/2025 3:20 AM CDT 01/03/2025 3:37 AM CDT Narrative [facility] - 01/03/2025 4:23 AM CDT Samples containing indocyanine green cause interferences on Total and/or Direct Bilirubin and must not be measured. us Kaylyn Sousa SPINNING MULE TENDER CHEMISTRY ORDERABLES Final Resul t [facility]# [id number] [address] [place] [address] * MAGNESIUM LEVEL (01/03/2025 3:20 AM CDT) MAGNESIUM 2.0 1.6 - 2.6 mg/dL 01/03/2025 4:23 AM T [facility] Blood Venipuncture / Unknown 01/03/2025 3:20 AM CDT 01/03/2025 3:37 AM CDT us Kaylyn Venancio Lars SPINNING MULE TENDER CHEMISTRY ORDERABLES Final Resul t [facility]# [id number] [address] [place] [address] * (ABNORMAL) DRUG SCREEN, URINE (01/02/2025 7:42 PM CDT) [facility] AMPHETAMINE QUAL, URINE Negative Negative 01/02/2025 8:38 PM CDT [facility] BARBITURATE QUAL, URINE Presumptive Positive(A) Negative 01/02/2025 8:38 PM CDT [facility] BENZODIAZEPINE QUAL, URINE Presumptive Positive(A) Negative 01/02/2025 8:38 PM CDT [facility] COCAINE QUAL URINE Negative Negative 01/02/2025 8:38 PM CDT [facility] OPIATE QUAL, URINE Negative Negative 01/02/2025 8:38 PM CDT [facility] CANNABINOIDS QUAL, URINE Presumptive Positive(A) Negative 01/02/2025 8:38 PM CDT [facility] PCP QUAL, URINE Negative Negative 8:38 PM CDT [facility] OXYCODONE QUAL, URINE Negative Negative 01/02/2025 8:38 PM CDT [facility] METHADONE QUAL, URINE Negative Negative 01/02/2025 8:38 PM CDT [facility] FENTANYL QUAL, URINE Negative Negative 01/02/2025 8:38 PM CDT [facility] CREATININE, URINE 247.0 40.0 - 278.0 mg/dL 01/02/2025 8:38 PM CDT [facility] Comment:Reference Range vari es with fluid intake and diet. Urine URINE SPECIMEN OBTAINED BY CLEAN CATCH PROCEDURE / Unknown Collection / Unknown 01/02/2025 7:42 PM CDT 01/02/2025 8:00 PM CDT Narrative [facility] - 01/02/2025 8:38 PM CDT This test is a qualitative screen. The presumptive positive results should not be used for legal purposes. If confirmation of results is desired, the lab must be contacted without delay. Drug Ref. Range Screening Threshold Amphetamines Negative 500 ng/mL Barbiturates Negative 200 ng/mL Benzodiazepines Negative 100 ng/mL Cannabinoids Negative 50 ng/mL Cocaine Negative 150 ng/mL Methadone Negative 300 ng/mL Opiates Negative 300 ng/mL Oxycodone Negative 100 ng/mL Phencyclidine Negative 25 ng/mL Fentanyl Negative 5 ng/mL us Keegan Salgado MD URINE ORDERABLES Final Resul t [facility] LABORATORY SERVICES - [facility]# [id number] [address] [place] [address] * (ABNORMAL) URINALYSIS WITH REFLEX MICROSCOPIC (01/02/2025 7:42 PM CDT) COLOR UA Yellow Pale to Dark Yellow 01/02/2025 8:21 PM CDT [employer] LABORATORY SERVICES - [facility] CLARITY UA Clear Clear 01/02/2025 8:21 PM CDT [employer] LABORATORY SERVICES - [facility] SPECIFIC GRAVITY UA 1.024 1.003 - 1.035 01/02/2025 8:21 PM CDT [employer] LABORATORY SERVICES - [facility] PH UA 7.0 5.0 - 8.0 01/02/2025 8:21 PM CDT [employer] LABORATORY SERVICES - [facility] LEUKOCYTE ESTERASE UA Negative Negative 01/02/2025 8:21 PM CDT [employer] LABORATORY SERVICES - [facility] NITRITE UA Negative Negative 01/02/2025 8:21 PM CDT [employer] LABORATORY SERVICES - [facility] PROTEIN UA 1+(A) Negative 01/02/2025 8:21 PM CDT [facility] LABORATORY SERVICES - [facility] GLUCOSE UA Negative Negative 01/02/2025 8:21 PM CDT [facility] LABORATORY SERVICES - [facility] KETONES UA Negative Negative 01/02/2025 8:21 PM CDT [facility] LABORATORY SERVICES - [facility] UROBILINOGEN UA Normal <2.0 mg/dL 8:21 PM CDT [facility] LABORATORY SERVICES - [facility] BILIRUBIN UA Negative Negative 01/02/2025 8:21 PM CDT [facility] LAB[facility]ORY SERVICES - [facility] BLOOD UA Negative Negative 01/02/2025 8:21 PM CDT [facility]ATORY SERVICES - . [facility] WBC UA 0-2 0 - 2 /hpf 01/02/2025 8:21 PM CDT [facility] LAB[facility]ATORY SERVICES - . [facility] RBC UA 0-2 0 - 2 /hpf 01/02/2025 8:21 PM CDT [facility] LAB[facility]ATORY SERVICES - . [facility] BACTERIA UA Negative Negative /hpf 01/02/2025 8:21 PM CDT [facility] LAB[facility]ATORY SERVICES - [facility] EPITHELIAL CELLS, URINE 0-5 0 - 5 /hpf 01/02/2025 8:21 PM CDT [facility] LABORATORY SERVICES - [facility] Urine URINE SPECIMEN OBTAINED BY CLEAN CATCH PROCEDURE / Unknown Collection / Unknown 01/02/2025 7:42 PM CDT 01/02/2025 8:14 PM CDT Keegan Salgado MD URINE ORDERABLES Final Resul t [facility] CLIA# [id number] [address] [place] [address] * MAGNESIUM LEVEL (01/02/2025 2:10 PM CDT) Pathologist [facility] MAGNESIUM 1.8 1.6 - 2.6 mg/dL 01/02/2025 2:57 PM CDT [facility] LABORATORY [facility] Blood Venipuncture / Unknown 01/02/2025 2:10 PM CDT 01/02/2025 2:14 PM CDT us Kaylyn Sousa NP CHEMISTRY ORDERABLES Final Resul t [facility] CLIA# [id number] [address] [place] [address] * LIPASE (01/02/2025 9:42 AM CDT) Pathologist [facility] LIPASE 23 13 - 60 U/L 01/02/2025 10:32 AM CDT [employer] [facility] LABORATORY SERVICES [facility] Blood Venipuncture / Unknown 01/02/2025 9:42 AM CDT 01/02/2025 9:47 AM CDT Keegna Salgado MD CHEMISTRY ORDERABLES Final R esult Performing Organization Address [facility]/ZIP Co de Phone Number [facility] LABORATORY [facility] CLIA# [id number] [address] [place] [address] * (ABNORMAL) ETHANOL LEVEL (01/02/2025 9:42 AM CDT) Pathologist [facility] ETHANOL 130.00(H) <10.10 mg/dL 01/02/2025 10:32 AM CDT [employer] LABORATORY [facility] ETHANOL % 0.13 %w/v 01/02/2025 10:32 AM CDT [facility] LABORATORY SERVICES [facility] Blood Venipuncture / Unknown 01/02/2025 9:42 AM CDT 01/02/2025 9:47 AM CDT Keegan Salgado MD CHEMISTRY ORDERABLES Final R esult Performing Organization Address City/[facility] Co de Phone Number [facility] [employer] [facility] CLIA# [id number] [facility] [address] [place] [address] * (ABNORMAL) COMPREHENSIVE METABOLIC PANEL (01/02/2025 9:42 AM CDT) Pathologist [facility] SODIUM 142 136 - 145 mmol/L 01/02/2025 10:32 AM CDT [facility] LABORATORY SERVICES [facility] POTASSIUM 3.5 3.5 - 5.0 mmol/L 01/02/2025 10:32 AM CDT [facility] LABORATORY SERVICES [facility] CHLORIDE 102 98 - 107 mmol/L 01/02/2025 10:32 AM CDT [facility] LABORATORY SERVICES [facility] CO2 24 22 - 29 mmol/L 01/02/2025 10:32 AM CDT [facility] LABORATORY [facility] CALCIUM 9.5 8.6 - 10.2 mg/dL 01/02/2025 10:[address] [facility] - . [facility] BUN 6 6 - 20 mg/dL 01/02/2025 10:32 AM [facility] CREATININE 1.11 0.67 - 1.17 mg/dL 01/02/2025 10:32 AM [facility] GLUCOSE 108(H) 74 - 99 mg/dL 01/02/2025 10:32 AM [facility]. [facility] TOTAL PROTEIN 7.7 6.7 - 8.6 g/dL 01/02/2025 10:32 AM [facility]. [facility] ALBUMIN 4.4 3.5 - 5.2 g/dL 01/02/2025 10:32 AM [facility] BILIRUBIN TOTAL 0.4 0.0 - 1.2 mg/dL 01/02/2025 10:32 AM [facility] ALKALINE PHOSPHATASE 117 40 - 129 U/L 01/02/2025 10:32 AM [facility] AST 29 <41 U/L 01/02/2025 10:32 AM [facility] ALT 36 <42 U/L 01/02/2025 10:32 AM [facility] GFR >60 >=60 mL/min/1.7 3 sq meter 01/02/2025 10:32 AM [facility] Comment:eGFR calculated with 2020 CKD-EPI equation. Vegetarian diet, extremely high or low muscle mass, and may affect results. Cystatin C with Glomerular Filtration Rate is a suitable alternative for these patients. ANION GAP 16 8 - 16 mmol/L 01/02/2025 10:32 AM [facility] [employer] [facility] Blood Venipuncture / Unknown 01/02/2025 9:42 AM CDT 01/02/2025 9:47 AM [facility] LABORATORY [facility] - 01/02/2025 10:32 AM CDT Samples containing indocyanine green cause interferences on Total and/or Direct Bilirubin and must not be measured. Keegan Salgado MD CHEMISTRY ORDERABLES Final R esult [facility] LABORATORY SERVICES - [facility]# [id number] [address] [place] [address] * (ABNORMAL) CBC WITH DIFFERENTIAL (01/02/2025 9:42 AM CDT) Pathologist [facility] WBC 7.6 4.0 - 9.8 K/uL 01/02/2025 10:09 AM CDT [facility] LABORATORY SERVICES - . [facility] RBC 5.28 4.50 - 5.40 M/uL 01/02/2025 10:09 AM CDT [facility] LABORATORY SERVICES - . [facility] HEMOGLOBIN 15.2 13.6 - 16.5 g/dL 01/02/2025 10:09 AM CDT [facility] LABORATORY SERVICES - . [facility] HEMATOCRIT 44.6 40.0 - 48.0 % 01/02/2025 10:09 AM CDT [facility] LABORATORY SERVICES - . [facility] MCV 84.5 82.0 - 99.0 fL 01/02/2025 10:09 AM CDT [facility] LABORATORY SERVICES - . [facility] MCH 28.8 27.2 - 32.6 pg 01/02/2025 10:09 AM CDT [facility] LABORATORY SERVICES - . [facility] MCHC 34.1 31.5 - 35.5 g/dL 01/02/2025 10:09 AM CDT [facility] LABORATORY SERVICES - . [facility] RDW 14.3 11.5 - 14.5 % 01/02/2025 10:09 AM CDT [facility] [facility] LABORATORY SERVICES - [facility] RDW-STDEV 43.8 37.1 - 48.7 fL 01/02/2025 10:09 AM CDT [employer] LABORATORY SERVICES - . [facility] PLATELETS 397(H) 140 - 350 K/uL 01/02/2025 10:09 AM CDT [employer] LABORATORY SERVICES - . [facility] MPV 9.3 9.3 - 12.4 fL 01/02/2025 10:09 AM CDT [employer] LABORATORY SERVICES - . [facility] NEUTROPHILS 63 % 01/02/2025 10:09 AM CDT [facility] LABORATORY SERVICES - [facility] LYMPHOCYTES 26 % 01/02/2025 10:09 AM CDT [facility] LABORATORY SERVICES - . [facility] MONOCYTES 8 % 01/02/2025 10:09 AM CDT [facility] LABORATORY SERVICES - . [facility] EOSINOPHILS 2 % 01/02/2025 10:09 AM CDT [facility] LABORATORY SERVICES - . [facility] BASOPHILS 1 % 01/02/2025 10:09 AM CDT [facility] LABORATORY SERVICES - . [facility] IMMATURE GRANULOCYTES 1 % 01/02/2025 10:09 AM CDT [facility] LABORATORY SERVICES - . [facility] Comment:IG (Immature Granulo cyte) count includes Metamyelocytes, Myelocytes, and Promyelocytes NEUTROPHIL ABSOLUTE 4.79 1.90 - 7.00 K/uL 01/02/2025 10:09 AM CDT [facility] LABORATORY SERVICES - . [facility] LYMPHOCYTE ABSOLUTE 1.93 0.70 - 4.50 K/uL 01/02/2025 10:09 AM CDT [facility] LABORATORY SERVICES - . [facility] MONOCYTE ABSOLUTE 0.63 0.10 - 1.30 K/uL 01/02/2025 10:09 AM T [facility] LABORATORY SERVICES - . [facility] EOSINOPHIL ABSOLUTE 0.11 0.00 - 0.70 K/uL 01/02/2025 10:09 AM CDT [facility] LABORATORY SERVICES - . [facility] BASOPHILS ABSOLUTE 0.08 0.00 - 0.20 K/uL 01/02/2025 10:09 AM T [facility] LABORATORY SERVICES - [facility] IMMATURE GRANULOCYTES ABSOLUTE 0.04(H) 0.00 - 0.03 K/uL 01/02/2025 10:09 AM T [facility] LABORATORY [facility] - [facility] Blood Venipuncture / Unknown 01/02/2025 9:42 AM CDT 01/02/2025 9:47 AM CDT Keegan Salgado MD HEMATOLOGY ORDERABLES Final Result [facility] CLIA# [id number] [address] [place] [address] [place] [address] * EKG 12-LEAD (01/02/2025 9:38 AM CDT) 01/02/2025 9:38 AM CDT Narrative INTERFACE SYSTEM - 01/02/2025 11:23 AM CDT [place] [id number] Test Date: 2025-01-02 Pat Name: YANETH HENDERSON Department: 40 Room: 01 08 Gender: Male Contract Loader: [id number] : 1990 Requested By: KEEGAN Godwin Order Number: [id number] Reading : Magan Bonilla Measurements Intervals [place] Rate: 98 P: 67 LA: 143 QRS: 44 QRSD: 94 T: 60 QT: 361 QTc: 461 Interpretive Statements Sinus rhythm Nonspecific T abnormalities, anterior leads Electronically Signed On 01-02-2025 11:23:28 CDT by Magan Bonilla Procedure Note Magan Bonilla MD - 01/02/2025 [place] [id number] Test Date: 2025-01-02 Pat Name: YANETH HENDERSON Department: 40 Room: 01 08 Gender: Male Contract Loader: [id number] : 1990 Requested By: KEEGAN Godwin Order Number: [id number] Reading DIXON Bonilla Measurements Intervals [place] Rate: 98 P: 67 LA: 143 QRS: 44 QRSD: 94 T: 60 QT: 361 QTc: 461 Interpretive Statements Sinus rhythm Nonspecific T abnormalities, anterior leads Electronically Signed On 01-02-2025 11:23:28 CDT by Magan Bonilla Kenneth Cooper MD ECG ORDERABLES Final Result INTERFACE SYSTEM Refer to clinic/hospital department documented in this encounter Visit Diagnoses Diagnosis Alcohol abuse- Primary Alcohol abuse, unspecified Gastropathy Unspecified disorder of stomach and duodenum Nausea and vomiting, unspecified vomiting type 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) documented in this encounter Administered Medications Inactive Administered Medications - up to 3 most recent administrations Medication Order MAR Action Action Date Dose Rate Site acetaminophen (TYLENOL) tablet 650 mg 650 mg, Oral, EVERY 6 HOURS PRN, Starting on Wed01/02/25 at 1335, Until Wed01/05/25 at 1052, Other (See Comment), See admin instructions, Routine Given 01/04/2025 12:20 PM CDT 650 mg Given 01/03/2025 8:11 PM CDT 650 mg Given 01/03/2025 2:19 PM CDT 650 mg dextrose 5 % in water 250 mL flush bag 25 mL 25 mL, IV, SEE ADMIN INSTRUCTIONS, Starting on Wed01/02/25 at 1335, Until Wed01/05/25 at 1052, Routine enoxaparin (LOVENOX) injection 40 mg 40 mg, subCUT, EVERY 24 HOURS, First dose on Wed01/02/25 at 1345, Until Discontinued, Routine, Indication: Prophylaxis of VTE, Dose to be adjusted per facility protocol? Yes Given 01/04/2025 2:08 PM CDT 40 mg Abdom inal Tissue Given 01/03/2025 2:20 PM CDT 40 mg Ab dominal Tissue Given 01/02/2025 2:52 PM CDT 40 mg Le ft Arm folic acid (FOLVITE) tablet 1 mg 1 mg, Oral, DAILY, 3 doses, First dose on Wed01/03/25 at 0600, Last dose on Wed01/05/25 at 0600, Routine Given 01/05/2025 5:18 AM CDT 1 mg Given 01/04/2025 5:17 AM CDT 1 mg Given 01/03/2025 5:26 AM CDT 1 mg loperamide (IMODIUM) capsule 2 mg 2 mg, Oral, FOUR TIMES DAILY PRN, Starting on Wed01/04/25 at 1414, Until Wed01/05/25 at 1052, Diarrhea/Loose Stools, Routine Given 01/04/2025 2:19 PM CDT 2 mg LORazepam (ATIVAN) 2 mg/mL injection 1 mg 1 mg, IV, ONE TIME ONLY, 1 dose, On Wed01/02/25 at 2000, Routine Given 01/02/2025 7:55 PM CDT 1 mg LORazepam (ATIVAN) 2 mg/mL injection 2 mg 2 mg, IV, ONE TIME ONLY, 1 dose, On Wed01/02/25 at 0945, Routine Given 01/02/2025 9:45 AM CDT 2 mg LORazepam (ATIVAN) tablet 0.5 mg 0.5 mg, Oral, ONE TIME ONLY, 1 dose, On Wed01/03/25 at 0615, Routine Given 01/03/2025 6:10 AM CDT 0.5 mg LORazepam (ATIVAN) tablet 1 mg 1 mg, Oral, EVERY 2 HOURS, First dose (after last modification) on Wed01/03/25 at 0830, Until Discontinued, Routine Given 01/04/2025 12:20 PM CDT 1 mg Given 01/04/2025 8:05 AM CDT 1 mg Given 01/04/2025 1:48 AM CDT 1 mg LORazepam (ATIVAN) tablet 2 mg 2 mg, Oral, EVERY 2 HOURS, First dose (after last modification) on Wed01/03/25 at 0830, Until Discontinued, Routine Given 01/03/2025 5:52 PM CDT 2 mg Given 01/03/2025 12:21 PM CDT 2 mg Given 01/03/2025 8:32 AM CDT 2 mg LORazepam (ATIVAN) tablet 3 mg 3 mg, Oral, EVERY 2 HOURS, First dose (after last modification) on Wed01/03/25 at 0830, Until Discontinued, Routine magnesium SULFATE in water 2 gram/50 mL (4 %) IVPB 2 Gram 2 Gram, IV, ONE TIME ONLY, 1 dose, On Wed01/02/25 at 1330, Routine New Bag 01/02/2025 1:33 PM CDT 2 Grams 25 mL/hr melatonin tablet 6 mg 6 mg, Oral, ONE TIME ONLY, 1 dose, On Wed01/03/25 at 0345, Routine Given 01/03/2025 3:46 AM CDT 6 mg metoclopramide (REGLAN) 5 mg/mL injection 10 mg 10 mg, IV, ONE TIME ONLY, 1 dose, On Wed01/02/25 at 1330, Routine Given 01/02/2025 1:29 PM CDT 10 mg metoclopramide (REGLAN) 5 mg/mL injection 10 mg 10 mg, IV, EVERY 6 HOURS PRN, Starting on Wed01/02/25 at 1800, Until Wed01/05/25 at 1052, Nausea/Emesis, Routine Given 01/03/2025 6:12 AM CDT 10 mg Given 01/02/2025 7:39 PM CDT 10 mg mirtazapine (REMERON SolTab) tablet 15 mg 15 mg, Oral, DAILY AT BEDTIME, First dose (after last modification) on Wed01/03/25 at 2100, Until Discontinued, Routine Given 01/03/2025 8:11 PM CDT 15 mg mirtazapine (REMERON SolTab) tablet 30 mg 30 mg, Oral, DAILY AT BEDTIME, First dose (after last modification) on Wed01/04/25 at 2100, Until Discontinued, Routine Given 01/04/2025 8:56 PM CDT 30 mg multivitamin tx with iron and folic acid tablet tablet 1 Tablet 1 Tablet, Oral, DAILY, First dose on Wed01/03/25 at 0600, Until Discontinued, Routine Given 01/05/2025 5:18 AM CDT 1 Tablet Given 01/04/2025 5:17 AM CDT 1 Tablet Given 01/03/2025 5:26 AM CDT 1 Tablet naloxone (NARCAN) 0.4 mg/mL injection 0.1-0.4 mg 0.1-0.4 mg, IV, SEE ADMIN INSTRUCTIONS, Starting on Wed01/02/25 at 1335, Until Wed01/05/25 at 1052, Routine nicotine (NICODERM CQ) 14 mg/24 hr transdermal patch 1 Patch 1 Patch, Transdermal, DAILY, First dose (after last modification) on Wed01/03/25 at 1800, Until Discontinued, Routine Applied 01/05/2025 5:18 AM CDT 1 Patch Arm, Right Applied 01/04/2025 5:16 AM CDT 1 Patch Sh oulder, Right Applied 01/03/2025 8:11 PM CDT 1 Patch Ar m, Left Upper nicotine (NICODERM CQ) 14 mg/24 hr transdermal patch 1 Patch 1 Patch, Transdermal, ONE TIME ONLY, 1 dose, On Wed01/04/25 at 1300, Routine Applied 01/04/2025 2:09 PM CDT 1 Patch Arm, Left Upper ondansetron (ZOFRAN) 4 mg/2 mL injection 4 mg 4 mg, IV, ONE TIME ONLY, 1 dose, On Wed01/02/25 at 0930, Routine Given 01/02/2025 9:42 AM CDT 4 mg ondansetron (ZOFRAN) 4 mg/2 mL injection 4 mg 4 mg, IV, ONE TIME ONLY, 1 dose, On Wed01/02/25 at 1000, Routine Given 01/02/2025 12:12 PM CDT 4 mg ondansetron (ZOFRAN) 4 mg/2 mL injection 4 mg 4 mg, IV, EVERY 6 HOURS PRN, Starting on Wed01/02/25 at 1333, Until Wed01/03/25 at 0825, Nausea/Emesis, Routine Given 01/03/2025 3:38 AM CDT 4 mg Given 01/02/2025 3:48 PM CDT 4 mg ondansetron (ZOFRAN) 4 mg/2 mL injection 4 mg 4 mg, IV, EVERY 4 HOURS PRN, Starting on Wed01/03/25 at 0824, Until Wed01/05/25 at 1052, Nausea/Emesis, Routine Given 01/04/2025 8:06 AM CDT 4 mg Given 01/03/2025 12:23 PM CDT 4 mg Given 01/03/2025 8:29 AM CDT 4 mg PHENobarbital (LUMINAL) 130 mg/mL injection 130 mg 130 mg, IV, ONE TIME ONLY, 1 dose, On Wed01/02/25 at 1245, Routine Given 01/02/2025 12:51 PM CDT 130 mg PHENobarbital tablet 32.4 mg 32.4 mg, Oral, EVERY 6 HOURS, 4 doses, First dose on Wed01/02/25 at 1330, Last dose on Wed01/03/25 at 0700, Routine Given 01/03/2025 6:10 AM CDT 32.4 mg Given 01/03/2025 1:21 AM CDT 32.4 mg Given 01/02/2025 7:42 PM CDT 32.4 mg PHENobarbital tablet 32.4 mg 32.4 mg, Oral, EVERY 8 HOURS, 3 doses, First dose on Wed01/03/25 at 1300, Last dose on Wed01/04/25 at 0500, Routine Given 01/04/2025 5:17 AM CDT 32.4 mg Given 01/03/2025 8:11 PM CDT 32.4 mg Given 01/03/2025 12:21 PM CDT 32.4 mg PHENobarbital tablet 32.4 mg 32.4 mg, Oral, EVERY 12 HOURS, 2 doses, First dose on Wed01/04/25 at 1300, Last dose on Wed01/05/25 at 0100, Routine Given 01/05/2025 12:08 AM CDT 32.4 mg Given 01/04/2025 2:09 PM CDT 32.4 mg potassium CHLORIDE (KLOR-CON) SR tablet 40 mEq 40 mEq, Oral, ONE TIME ONLY, 1 dose, On Wed01/03/25 at 0730, Routine Given 01/03/2025 8:32 AM CDT 40 mEq sodium chloride 0.9 % bolus solution 1,000 mL 1,000 mL, IV, ONE TIME ONLY, 1 dose, On Wed01/02/25 at 0930, at 2,000 mL/hr, Administer over 30 Minutes, Routine New Bag 01/02/2025 9:42 AM CDT 1,000 mL 2000 mL/hr sodium chloride 0.9 % bolus solution 1,000 mL 1,000 mL, IV, ONE TIME ONLY, 1 dose, On Wed01/02/25 at 1245, at 2,000 mL/hr, Administer over 30 Minutes, Routine New Bag 01/02/2025 12:51 PM CDT 1,000 mL 2000 mL/hr sodium chloride 0.9 % flush bag 25 mL 25 mL, IV, SEE ADMIN INSTRUCTIONS, Starting on Wed01/02/25 at 1335, Until Wed01/05/25 at 1052, Routine sodium chloride 0.9 % infusion IV, at 150 mL/hr, CONTINUOUS, Starting on Wed01/02/25 at 1030, Until Wed01/03/25 at 1029, Routine Bag Switched 01/03/2025 6:15 AM CDT 150 mL/hr Bag Switched 01/03/2025 12:22 AM CDT 150 mL/hr New Bag 01/02/2025 5:39 PM CDT 150 mL/hr sodium chloride flush injection 10 mL 10 mL, IV, EVERY 12 HOURS (BlD), First dose on Wed01/02/25 at 1800, Until Discontinued, Routine Given 01/05/2025 6:00 AM CDT 10 mL Given 01/04/2025 6:17 PM CDT 10 mL Given 01/04/2025 6:00 AM CDT 10 mL sodium chloride flush injection 10 mL 10 mL, IV, SEE ADMIN INSTRUCTIONS, Starting on Wed01/02/25 at 1335, Until Wed01/05/25 at 1052, Routine thiamine (VITAMIN B-1) injection 100 mg 100 mg, IV, ONE TIME ONLY, 1 dose, On Wed01/02/25 at 1330, Routine Given 01/02/2025 2:06 PM CDT 100 mg thiamine mononitrate (VITAMIN B-1) tablet 100 mg 100 mg, Oral, DAILY, First dose on Wed01/03/25 at 0600, Until Discontinued, Routine Given 01/05/2025 5:18 AM CDT 100 mg Given 01/04/2025 5:17 AM CDT 100 mg Given 01/03/2025 5:26 AM CDT 100 mg documented in this encounter Active and Recently Administered Medications Times are shown in CDT. Scheduled Medication Order 01/03/2025 01/04/2025 01/05/2025 dextrose 5 % in water 250 mL flush bag 25 mL 25 mL, IV, SEE ADMIN INSTRUCTIONS, Starting on Wed01/02/25 at 1335, Until Wed01/05/25 at 1052, Routine enoxaparin (LOVENOX) injection 40 mg 40 mg, subCUT, EVERY 24 HOURS, First dose on Wed01/02/25 at 1345, Until Discontinued, Routine, Indication: Prophylaxis of VTE, Dose to be adjusted per facility protocol? Yes 1420 (Given - Provider: Carmelita Uribe RN) 1408 (Given - Provider: Carmelita Uribe RN) folic acid (FOLVITE) tablet 1 mg (COMPLETED) 1 mg, Oral, DAILY, 3 doses, First dose on Wed01/03/25 at 0600, Last dose on Wed01/05/25 at 0600, Routine 0526 (Given - Provider: Jami Guy RN) 0517 (Given - Provider: Elma Yi RN) 0518 (Given - Provider: Poli Kiran RN) LORazepam (ATIVAN) tablet 0.5 mg (COMPLETED) 0.5 mg, Oral, ONE TIME ONLY, 1 dose, On Wed01/03/25 at 0615, Routine 0610 (Given - Provider: Jami Guy RN) LORazepam (ATIVAN) tablet 1 mg(Linked Group 1) 1 mg, Oral, EVERY 2 HOURS, First dose (after last modification) on Wed01/03/25 at 0830, Until Discontinued, Routine 0832 (See Alternative - Provider: Carmelita Uribe RN)1024 (Given - Provider: Carmelita Uribe RN - Comment: CIWA 10)1221 (See Alternative - Provider: Carmelita Uribe RN)1400 (Not Given - Provider: Carmelita Uribe RN - Reason: Patient condition - Comment: CIWA 9.)1600 (Not Given - Provider: Sharon Luong RN - Reason: Patient asleep)1752 (See Alternative - Provider: Sharon Luong RN)2000 (Not Given - Provider: Vincenzo Bhatti RN - Reason: Patient condition)2200 (Not Given - Provider: Vincenzo Bhatti RN - Reason: Patient condition) 0000 (Not Given - Provider: Elma Yi RN - Reason: Patient condition)0148 (Given - Provider: Elma Yi RN - Comment: CIWA 13)0400 (Not Given - Provider: Elma Yi RN - Reason: Patient condition - Comment: CIWA 9)0600 (Not Given - Provider: Elma Yi RN - Reason: Patient condition - Comment: ciwa 4)0805 (Given - Provider: Carmelita Uribe RN - Comment: CIWA 12)1000 (Not Given - Provider: Carmelita Uribe RN - Reason: Patient condition - Comment: CIWA 5.)1220 (Given - Provider: Carmelita Uribe RN - Comment: CIWA 10.)1400 (Not Given - Provider: Carmelita Uribe RN - Reason: Patient condition - Comment: CIWA 4.)1600 (Not Given - Provider: Carmelita Uribe RN - Reason: Patient condition - Comment: CIWA 3.)1800 (Not Given - Provider: Carmelita Uribe RN - Reason: Patient condition - Comment: CIWA 5.)2000 (Not Given - Provider: Poli Kiran RN - Reason: Clarify-Other (Comment) - Comment: CIWA <10)2200 (Not Given - Provider: Poli Kiran RN - Reason: Clarify-Other (Comment) - Comment: CIWA changed to q4) 0000 (Not Given - Provider: Poli Kiran RN - Reason: Clarify-Other (Comment) - Comment: ciwa 2)0200 (Not Given - Provider: Poli Kiran RN - Reason: Clarify-Other (Comment) - Comment: CIWA q4)0400 (Not Given - Provider: Poli Kiran RN - Reason: Other - See Comment - Comment: CIWA 3)0600 (Not Given - Provider: Poli Kiran RN - Reason: Clarify-Other (Comment) - Comment: Q4 CIWA)0800 (Not Given - Provider: Margarita Quach RN - Reason: Patient condition) LORazepam (ATIVAN) tablet 2 mg(Linked Group 1) 2 mg, Oral, EVERY 2 HOURS, First dose (after last modification) on Wed01/03/25 at 0830, Until Discontinued, Routine 0832 (Given - Provider: Carmelita Uribe RN - Comment: CITIM 17)1024 (See Alternative - Provider: Carmelita Uribe RN)1221 (Given - Provider: Carmelita Uribe RN - Comment: CI 15.)1400 (See Alternative - Provider: Carmelita Uribe RN)1600 (See Alternative - Provider: Sharon Luong, RN)1752 (Given - Provider: Sharon Luong RN - Comment: ci 17)2000 (See Alternative - Provider: Vincenzo Bhatti RN)2200 (See Alternative - Provider: Vincenzo Bhatti RN) 0000 (See Alternative - Provider: Elma Yi, ANNETTE)0148 (See Alternative - Provider: Elma Yi, ANNETTE)0400 (See Alternative - Provider: Elma Yi, RN)0600 (See Alternative - Provider: Elma Yi, RN)0805 (See Alternative - Provider: Carmelita Uribe RN)1000 (See Alternative - Provider: Carmelita Uribe RN)1220 (See Alternative - Provider: Carmelita Uribe RN)1400 (See Alternative - Provider: Carmelita Uribe RN)1600 (See Alternative - Provider: Carmelita Uribe RN)1800 (See Alternative - Provider: Carmelita Uribe RN)2000 (See Alternative - Provider: Poli Kiran RN)2200 (See Alternative - Provider: Poli Kiran RN) 0000 (See Alternative - Provider: Poli Kiran RN)0200 (See Alternative - Provider: Poli Kiran RN)0400 (See Alternative - Provider: Poli Kiran RN)0600 (See Alternative - Provider: Poli Kiran RN)0800 (See Alternative - Provider: Margarita Quach RN) LORazepam (ATIVAN) tablet 3 mg(Linked Group 1) 3 mg, Oral, EVERY 2 HOURS, First dose (after last modification) on Wed01/03/25 at 0830, Until Discontinued, Routine 0832 (See Alternative - Provider: Carmelita Uribe RN)1024 (See Alternative - Provider: Carmelita Uribe RN)1221 (See Alternative - Provider: Carmelita Uribe RN)1400 (See Alternative - Provider: Carmelita Uribe RN)1600 (See Alternative - Provider: Sharon Luong RN)1752 (See Alternative - Provider: Sharon Luong RN)2000 (See Alternative - Provider: Vincenzo Bhatti, ANNETTE)2200 (See Alternative - Provider: Vincenzo Bhatti, ANNETTE) 0000 (See Alternative - Provider: Elma Yi RN)0148 (See Alternative - Provider: Elma Yi, ANNETTE)0400 (See Alternative - Provider: Elma Yi, ANNETTE)0600 (See Alternative - Provider: Elma Yi, ANNETTE)0805 (See Alternative - Provider: Carmelita Uribe RN)1000 (See Alternative - Provider: Carmelita Uribe RN)1220 (See Alternative - Provider: Carmelita Uribe, ANNETTE)1400 (See Alternative - Provider: Carmelita Uribe, ANNETTE)1600 (See Alternative - Provider: Carmelita Uribe RN)1800 (See Alternative - Provider: Carmelita Uribe RN)2000 (See Alternative - Provider: Poli Kiran RN)2200 (See Alternative - Provider: Poli Kiran RN) 0000 (See Alternative - Provider: Poli Kiran RN)0200 (See Alternative - Provider: Poli Kiran RN)0400 (See Alternative - Provider: Poli Kiran RN)0600 (See Alternative - Provider: Poli Kiran RN)0800 (See Alternative - Provider: Margarita Quach RN) melatonin tablet 6 mg (COMPLETED) 6 mg, Oral, ONE TIME ONLY, 1 dose, On Wed01/03/25 at 0345, Routine 345 (Given - Provider: Jami Guy RN) mirtazapine (REMERON SolTab) tablet 15 mg (CANCELED) 15 mg, Oral, DAILY AT BEDTIME, First dose (after last modification) on Wed01/03/25 at 2100, Until Discontinued, Routine 2010 (Given - Provider: Vincenzo Bhatti RN) mirtazapine (REMERON SolTab) tablet 30 mg 30 mg, Oral, DAILY AT BEDTIME, First dose (after last modification) on Wed01/04/25 at 2100, Until Discontinued, Routine 2055 (Given - Provider: Poli Kiran RN) multivitamin tx with iron and folic acid tablet tablet 1 Tablet 1 Tablet, Oral, DAILY, First dose on Wed01/03/25 at 0600, Until Discontinued, Routine 525 (Given - Provider: Jami Guy RN) 0517 (Given - Provider: Elma iY, ANNETTE) 0518 (Given - Provider: Poli Kiran, ANNETTE) naloxone (NARCAN) 0.4 mg/mL injection 0.1-0.4 mg 0.1-0.4 mg, IV, SEE ADMIN INSTRUCTIONS, Starting on Wed01/02/25 at 1335, Until Wed01/05/25 at 1052, Routine nicotine (NICODERM CQ) 14 mg/24 hr transdermal patch 1 Patch 1 Patch, Transdermal, DAILY, First dose (after last modification) on Wed01/03/25 at 1800, Until Discontinued, Routine 2010 (Applied - Provider: Vincenzo Bhatti, ANNETTE) 0516 (Applied - Provider: Elma Yi, ANNETTE) 0516 (Removed - Provider: Poli Kiran RN)0518 (Applied - Provider: Poli Kiran RN)0847 (Due: Removed - Provider: PROVIDER, DISCHARGE PATIENT - Comment: Time automatically adjusted from order being discontinued) nicotine (NICODERM CQ) 14 mg/24 hr transdermal patch 1 Patch 1 Patch, Transdermal, ONE TIME ONLY, 1 dose, On Wed01/04/25 at 1300, Routine 1409 (Applied - Provider: Carmelita Uribe RN) 0847 (Due: Removed - Provider: PROVIDER, DISCHARGE PATIENT - Comment: Time automatically adjusted from order being discontinued) PHENobarbital tablet 32.4 mg (COMPLETED)(Linked Group 2) 32.4 mg, Oral, EVERY 6 HOURS, 4 doses, First dose on Wed01/02/25 at 1330, Last dose on Wed01/03/25 at 0700, Routine 0121 (Given - Provider: Jami Guy RN)0610 (Given - Provider: Jami Guy RN) PHENobarbital tablet 32.4 mg (COMPLETED)(Linked Group 2) 32.4 mg, Oral, EVERY 8 HOURS, 3 doses, First dose on Wed01/03/25 at 1300, Last dose on Wed01/04/25 at 0500, Routine 1221 (Given - Provider: Carmelita Uribe RN - Comment: CIWA 15.)2010 (Given - Provider: Vincenzo Bhatti RN) 0517 (Given - Provider: Elma Yi RN) PHENobarbital tablet 32.4 mg (COMPLETED)(Linked Group 2) 32.4 mg, Oral, EVERY 12 HOURS, 2 doses, First dose on Wed01/04/25 at 1300, Last dose on Wed01/05/25 at 0100, Routine 1409 (Given - Provider: Carmelita Uribe RN) 0008 (Given - Provider: Poli Kiran RN) potassium CHLORIDE (KLOR-CON) SR tablet 40 mEq (COMPLETED) 40 mEq, Oral, ONE TIME ONLY, 1 dose, On Wed01/03/25 at 0730, Routine 0832 (Given - Provider: Carmelita Uribe RN) sodium chloride 0.9 % flush bag 25 mL 25 mL, IV, SEE ADMIN INSTRUCTIONS, Starting on Wed01/02/25 at 1335, Until Wed01/05/25 at 1052, Routine sodium chloride flush injection 10 mL 10 mL, IV, EVERY 12 HOURS (BlD), First dose on Wed01/02/25 at 1800, Until Discontinued, Routine 0600 (Not Given - Provider: Jami Guy RN - Reason: Other - See Comment - Comment: ivf infusing)1753 (Given - Provider: Sharon Luong RN) 0600 (Given - Provider: Elma Yi, RN)1817 (Given - Provider: Carmelita Uribe, ANNETTE) 0600 (Given - Provider: Poli Kiran, ANNETTE) sodium chloride flush injection 10 mL 10 mL, IV, SEE ADMIN INSTRUCTIONS, Starting on Wed01/02/25 at 1335, Until Wed01/05/25 at 1052, Routine thiamine mononitrate (VITAMIN B-1) tablet 100 mg(Linked Group 3) 100 mg, Oral, DAILY, First dose on Wed01/03/25 at 0600, Until Discontinued, Routine 0526 (Given - Provider: Jami Guy RN) 0517 (Given - Provider: Elma Yi RN) 0518 (Given - Provider: Poli Kiran RN) Continuous Medication Order 01/03/2025 01/04/2025 01/05/2025 sodium chloride 0.9 % infusion () IV, at 150 mL/hr, CONTINUOUS, Starting on Wed01/02/25 at 1030, Until Wed01/03/25 at 1029, Routine 0022 (Bag Switched - Provider: Jami Guy RN - Comment: [Order ends at this time. Document the following action when infusion is complete: Stopped])0615 (Bag Switched - Provider: Jami Guy RN - Comment: [Order ends at this time. Document the following action when infusion is complete: Stopped])1029 (Stopped - Provider: Carmelita Uribe RN - Comment: [Order ends at this time. Document the following action when infusion is complete: Stopped]) PRN Medication Order 01/03/2025 01/04/2025 01/05/2025 acetaminophen (TYLENOL) tablet 650 mg 650 mg, Oral, EVERY 6 HOURS PRN, Starting on Wed01/02/25 at 1335, Until Wed01/05/25 at 1052, Other (See Comment), See admin instructions, Routine 0832 (Given - Provider: Carmelita Uribe RN - Comment: patient complaint of headache.)141 (Given - Provider: Carmelita Uribe RN - Comment: patient complaint of headache.)2010 (Given - Provider: Vincenzo Bhatti RN) 122 (Given - Provider: Carmelita Uribe RN - Comment: patient complaint of headache.) loperamide (IMODIUM) capsule 2 mg 2 mg, Oral, FOUR TIMES DAILY PRN, Starting on Wed01/04/25 at 1414, Until Wed01/05/25 at 1052, Diarrhea/Loose Stools, Routine 1419 (Given - Provider: Carmelita Uribe RN - Comment: patient reported 5 BM this shift.) metoclopramide (REGLAN) 5 mg/mL injection 10 mg 10 mg, IV, EVERY 6 HOURS PRN, Starting on Wed01/02/25 at 1800, Until Wed01/05/25 at 1052, Nausea/Emesis, Routine 0612 (Given - Provider: Jami Guy RN) ondansetron (ZOFRAN) 4 mg/2 mL injection 4 mg (CANCELED) 4 mg, IV, EVERY 6 HOURS PRN, Starting on Wed01/02/25 at 1333, Until Wed01/03/25 at 0825, Nausea/Emesis, Routine 0338 (Given - Provider: Jami Guy RN) ondansetron (ZOFRAN) 4 mg/2 mL injection 4 mg 4 mg, IV, EVERY 4 HOURS PRN, Starting on Wed01/03/25 at 0824, Until Wed01/05/25 at 1052, Nausea/Emesis, Routine 0829 (Given - Provider: Carmelita Uribe RN - Comment: patient nauseous)1223 (Given - Provider: Carmelita Uribe RN - Comment: patient nauseous.) 0806 (Given - Provider: Carmelita Uribe RN - Comment: patient nauseous) Linked Groups Order Group 1: LORazepam (ATIVAN) tablet 1 mgJump to med 1 mg, Oral, EVERY 2 HOURS, First dose (after last modification) on Wed01/03/25 at 0830, Until Discontinued, Routine Or LORazepam (ATIVAN) tablet 2 mgJump to med 2 mg, Oral, EVERY 2 HOURS, First dose (after last modification) on Wed01/03/25 at 0830, Until Discontinued, Routine Or LORazepam (ATIVAN) tablet 3 mgJump to med 3 mg, Oral, EVERY 2 HOURS, First dose (after last modification) on Wed01/03/25 at 0830, Until Discontinued, Routine Group 2: PHENobarbital tablet 32.4 mg (COMPLETED)Jump to med 32.4 mg, Oral, EVERY 6 HOURS, 4 doses, First dose on Wed01/02/25 at 1330, Last dose on Wed01/03/25 at 0700, Routine Followed by PHENobarbital tablet 32.4 mg (COMPLETED)Jump to med 32.4 mg, Oral, EVERY 8 HOURS, 3 doses, First dose on Wed01/03/25 at 1300, Last dose on Wed01/04/25 at 0500, Routine Followed by PHENobarbital tablet 32.4 mg (COMPLETED)Jump to med 32.4 mg, Oral, EVERY 12 HOURS, 2 doses, First dose on Wed01/04/25 at 1300, Last dose on Wed01/05/25 at 0100, Routine Group 3: thiamine (VITAMIN B-1) injection 100 mg (COMPLETED) 100 mg, IV, ONE TIME ONLY, 1 dose, On Wed01/02/25 at 1330, Routine Followed by thiamine mononitrate (VITAMIN B-1) tablet 100 mgJump to med 100 mg, Oral, DAILY, First dose on Wed01/03/25 at 0600, Until Discontinued, Routine documented in this encounter Additional Health Concerns Assessment Noted Time PHQ-9 Depression Total Score: 1 01/04/20 25 3:39 AM CDT documented as of this encounter
--- OUTSIDE RECORDS SUMMARY | 2025-01-05 18:40 | XMS_ITS | Clinical Summary ---
Author Organization [facility] Address [address] [place] [address] Care Team Providers Care Can Closing Machine Operator Name Role Phone Unavailable Primary Care Provider Unavailabl e Source Comments [facility],non-owned Affiliates and Associated Physician Practices is amultiple site organization consisting of ambulatory clinics and hospital sitesin [place], [place] and [place]. This disclosure is being madepursuant to the Care Everywhere program and may not contain all information available regarding this patient. Last updated 18.[facility] Allergies Active Allergy Reactions Criticality Noted Date Comments Prochlorperazine Other 04/11/2022 Causes anxiety Escitalopram Nausea and/or Vomiting Low 02/16/2023 Promethazine Other 04/11/2022 Causes anxiety Medications * This document contains information received from the source organization and may not represent a complete record from that organization. * Be aware that medications may not be up to date on this document. Alwaysverify current medications with the patient. acetaminophen (Tylenol) 325 MG tablet Take 2 (two) tablets by mouth every 6 hours as needed Maximum allowable Acetaminophen amount = 4 Grams (4000 mg) / 24 hours. 12/10/19 24 Active multiple vitamins with minerals tablet Take 1 (one) tablet by mouth once daily 12/11/19 24 Active Additional Information Patient not taking.Reason: Other, Reported on 12/07/2024 ondansetron (Zofran) 4 MG tablet Take 1 (one) tablet by mouth every 6 hours as needed for Nausea/Vomiting 30 tablet 04/25/20 24 Active Additional Information Patient not taking.Reported on 12/07/2024 hydrOXYzine HCl (Atarax) 25 MG tablet Take 1 (one) tablet by mouth 4 times daily as needed for Itching 30 tablet 04/25/20 24 Active gabapentin (Neurontin) 300 MG capsule Take 1 (one) capsule by mouth 3 times daily Active mirtazapine (Remeron) 30 MG tablet Take 1 (one) tablet by mouth at bedtime Active diazePAM (Valium) 10 MG tablet Take 0.5 (one-half) tablet by mouth 3 times daily 45 tablet 12/12/19 25 Active folic acid (Folvite) 1 MG tablet Take 1 (one) tablet by mouth once daily for 30 days 30 tablet 12/12/19 25 025 Active thiamine (Vitamin B-1) 50 MG Take 1 (one) tablet by mouth once daily for 30 days 30 tablet 12/12/19 25 025 Active folic acid (Folvite) 1 MG tablet Take 1 (one) tablet by mouth once daily 30 tablet 05/12/20 24 025 Discontin ued(List Clean-Up) thiamine (Vitamin B-1) 100 MG tablet Take 1 (one) tablet by mouth once daily 30 tablet 05/12/20 24 025 Discontin ued(List Clean-Up) diazePAM (Valium) 10 MG tabletIndicati ons:Alcohol Withdrawal Syndrome Take 1 (one) tablet by mouth 3 times daily for 3 days Reasons: Alcohol Withdrawal Syndrome 9 tablet 12/11/19 25 025 Discontin ued(Avail ability) thiamine (Vitamin B-1) 100 MG tablet Take 1 (one) tablet by mouth once daily 30 tablet 12/12/19 25 025 Discontin ued(Avail ability) folic acid (Folvite) 1 MG tablet Take 1 (one) tablet by mouth once daily for 30 days 30 tablet 12/11/19 25 025 Discontin ued(Avail ability) Active Problems Problem Noted Date Diagnosed Date Neuropathy 12/09/2024 Overview (12/09/2024): - Patient states he is on gabapentin for neuropathy 2/2 AUD - No records in dispense report with patient not knowing the dosage Plan: - Hold Gabapentin for concern of oversedation - Order B12 for neuropathy workup; pending Assessment & Plan (12/10/2024 9:41 AM CDT): - Patient states he is on gabapentin for neuropathy 2/2 AUD - No records in dispense report with patient not knowing the dosage Plan: - Hold Gabapentin for concern of oversedation - B12 levels normal Assessment & Plan (12/09/2024 10:39 AM CDT): - Patient states he is on gabapentin for neuropathy 2/2 AUD - No records in dispense report with patient not knowing the dosage Plan: - Hold Gabapentin for concern of oversedation - B12 levels normal Other insomnia 12/09/2024 Overview (12/09/2024): - Continue home mirtazapine Assessment & Plan (12/10/2024 9:41 AM CDT): - Continue home mirtazapine 30 mg bedtime Assessment & Plan (12/09/2024 10:39 AM CDT): - Continue home mirtazapine 30 mg bedtime Alcohol withdrawal syndrome with perceptual dist urbance 05/10/2024 Nausea and vomiting, unspecified vomiting type 1 Alcohol withdrawal syndrome without complication 12/09/2023 Overview (12/09/2024): - Valium 10mg TID due to high alcohol use amount at baseline. Has received all 3 doses yesterday and complaining of withdrawal symptoms. Will continue current regimen and attempt to taper tomorrow - Continue CIWA mornitoring - IV Thiamine for 3 days, then transition to PO folic acid - Zofran and Atarax for symptom management - Consider starting naltrexone once stable for alcohol cessation - Patient is interested in sober living facility after discharge, will work with social work. Assessment & Plan (12/10/2024 9:41 AM CDT): - Valium 10mg TID due to high alcohol use amount at baseline Will continue current regimen and attempt to taper tomorrow - Continue CIWA mornitoring - IV Thiamine for 3 days, then transition to PO folic acid - Zofran and Atarax for symptom management - Consider starting naltrexone once stable for alcohol cessation - Patient is interested in sober living facility after discharge, will work with social work. Assessment & Plan (12/09/2024 10:39 AM CDT): - Valium 10mg TID due to high alcohol use amount at baseline. Has received all 3 doses yesterday and complaining of withdrawal symptoms. Will continue current regimen and attempt to taper tomorrow - Continue CIWA mornitoring - IV Thiamine for 3 days, then transition to PO folic acid - Zofran and Atarax for symptom management - Consider starting naltrexone once stable for alcohol cessation - Patient is interested in sober living facility after discharge, will work with social work. Alcohol withdrawal syndrome with complication Acute kidney injury 11/06/2021 Nausea and vomiting 11/06/2021 Marijuana abuse 11/06/2021 Intractable vomiting 08/06/2020 Chest pain 2013 Major depressive disorder, recurrent episode, se shayne Overview (04/04/2015): Panic attacks Encounters Date Type Department Care Team Description 12/15/2024 Telephone Transitional Care at [address] [address] Mónica Hurley RN Missed Appointment 12/12/2024 Telephone Transitional Care at [address] [address] Glenny Thomason, core rescuer 12/11/2024 Refill [facility] [address] [place] [address] Luis Smith MD MEDICATION REFILL 12/11/2024 Telephone Transitional Care at [address] [address] Salud Robb, core rescuer 12/07/2024 3:45 PM CDT - 12/10/2024 1:15 PM CDT Hospital Encounter [facility] [address] [place] [phone] Krausz, Jac E, MD Foreman, MichaelDO Kvng Mckinney Adam, MD Rojulpote, Chaitanya, MD Majeed, Luis Mosher MD Emergency Medicine Discharge Disposition: Left Against Medical Advice/Discontinued Care 12/07/2024 Travel from Last 3 Months Immunizations Immunization Administration Dates Next Due Covlisa Moderna primary monovalent 12+ yr 0.5mL INFLUENZA VACCINE 09/05/2013 INFLUENZA VACCINE, QUADR. (F LUZONE; FLULAVAL; FLUARIX; AFLURIA QUADRIVALENT; 6MO+), 0.5 ML (IIV4) 08/07/2020 Family History Medical History Relation Name Comments Suicide Brother 2 shot self Cancer Maternal Grandfather Cancer Maternal Grandmother CAD (Coronary Artery Disease) Maternal Uncle Depression Maternal Uncle Cancer Mother breast Depression Mother Relation Name Status Comments Brother 1 (Age 17) suicide Brother 2 Father Alive Maternal Grandfather Maternal Grandmother Maternal Uncle Mother Alive Sister Alive Social History Tobacco Use Types Packs/Day Years Used Date Smoking Tobacco: Former Cigarettes Q uit: 09/03/2007 Smokeless Tobacco: Never Tobacco Cessation:Counseling Given: Not Answered Alcohol Use Standard Drinks/Week Comments Yes 20 (1 standard drink = 0.6 oz pu re alcohol) AUDIT-C Answer Date Recorded Q1: How often do you have a drink containing alcohol? 4 or more times a week 12/07/2024 Q2: How many drinks containi ng alcohol do you have on a typical day when you are drinking? 10 or more Q3: How often do you have si x or more drinks on one occasion? Daily or almost daily 12/07/2024 Overall Financial Resource Strain (CARDIA) Answe r Date Recorded How hard is it for you to pa y for the very basics like food, housing, medical care, and heating? Not hard at all 12/07/2024 [facility] - Occupational Stress Questionnaire Answer Date Recorded Do you feel stress - tense, restless, nervous, or anxious, or unable to sleep at night because your mind is troubled all the time - these days? To some extent 12/07/2024 Hunger Vital Sign Answer Date Recorded Within the past 12 months, y ou worried that your food would run out before you got the money to buy more. Never true 12/08/19 25 Within the past 12 months, t he food you bought just didn't last and you didn't have money to get more. Never true 12/07/2024 PRAPARE - Transportation Answer Date Re corded In the past 12 months, has l ack of transportation kept you from medical appointments or from getting medications? No 11/2024 In the past 12 months, has l ack of transportation kept you from meetings, work, or from getting things needed for daily living? No 12/07/2024 Housing Stability Vital Sign Answer Jan e Recorded In the last 12 months, was t here a time when you were not able to pay the mortgage or rent on time? No 12/09/2023 In the last 12 months, how many places have you lived? 1 12/09/2023 In the last 12 months, was t here a time when you did not have a steady place to sleep or slept in a nursing home (including now)? No 12/09/2023 Housing Stability Vital Sign Answer Jan e Recorded In the last 12 months, was t here a time when you were not able to pay the mortgage or rent on time? No 12/07/2024 In the past 12 months, how m any times have you moved where you were living? 1 12/07/2024 At any time in the past 12 m [facility], were you homeless or living in a nursing home (including now)? 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 file Not on file Not on file Last Filed Vital Signs Vital Sign Reading Time Taken Comments Blood Pressure 130/97 12/10/2024 12:39 PM CDT Pulse 131 12/10/2024 12:39 PM CDT Temperature 37.2 C (99 F) 12/10/2024 12:39 PM CDT Respiratory Rate 20 12/10/2024 12:39 PM CDT Oxygen Saturation 99% 12/10/2024 12:39 PM CDT Inhaled Oxygen Concentration - - Weight 92.6 kg (204 lb 1.6 oz) 12/10/2024 4:00 A M CDT Height 193 cm (6' 3.98) 12/07/2024 9:15 PM CDT Body Mass Index 24.85 12/07/2024 9:15 PM CDT Plan of Treatment Health Maintenance Due Date Last Done Comments HEPATITIS C SCREENING 08/30/2008 DTAP/TDAP/TD VACCINES (1 - Tdap) 2009 HEPATITIS B VACCINE (1 of 3 - 19+ 3-dose series) 2009 COVID-19 VACCINE (2 - 2023-2 5 season) 2024 07/09/2021 DEPRESSION SCREENING 07/05/2024 INFLUENZA VACCINE (Season Ended) 2025 08/07/2020, 09/05/2013 ZOSTER VACCINE (1 of 2) 2040 HIV SCREENING Completed 11/07/2021 HIB VACCINE Aged Out No longer eligi ble based on patient's age to complete this topic HPV VACCINE Aged Out No longer eligi ble based on patient's age to complete this topic MENINGOCOCCAL (Group B) VACCINE SHARED DECISION-MAKING Aged Out No longer eligible based on patient's age to complete this topic MENINGOCOCCAL GROUPS A/C/Y/W VACCINE Aged Out No longer eligible b ased on patient's age to complete this topic PNEUMOCOCCAL VACCINE Aged Out No long er eligible based on patient's age to complete this topic Procedures Procedure Name Priority Date/Time Associated Diagnosis Comments PHOSPHORUS BLOOD Routine 12/09/2024 11:0 7 PM CDT MAGNESIUM BLOOD Routine 12/09/2024 11:07 PM CDT CBC W/O DIFFERENTIAL Routine 12/09/2024 11:07 PM CDT BASIC METABOLIC PANEL (CALCIUM TOTAL) Routine 12/09/2024 11:07 PM CDT VITAMIN B12 AM Draw 12/08/2024 8:44 AM CDT BASIC METABOLIC PANEL (CALCIUM TOTAL) AM Draw 12/08/2024 8:44 AM CDT PHOSPHORUS BLOOD AM Draw 12/08/2024 8:44 AM CDT MAGNESIUM BLOOD AM Draw 12/08/2024 8:44 AM CDT CBC W/O DIFFERENTIAL AM Draw 12/08/2024 8:44 AM CDT URINE DRUG SCREEN IMMUNOASSAY STAT 12/07/2024 3:09 PM CDT ALCOHOL ETHYL BLOOD STAT 12/07/2024 3 :02 PM CDT COMPREHENSIVE METABOLIC PANEL STAT 12/07/2024 3:02 PM CDT CBC W AUTO DIFFERENTIAL STAT 12/07/2024 3:02 PM CDT HIV-1 HIV-2 ANTIBODY + HIV P24 AG PANEL Routine 11/07/2021 8:38 AM CDT Chronic diarrhea from Last 3 Months or Most Recently Relevant to Health Maintenance Results * CBC W/O DIFFERENTIAL (12/09/2024 11:07 PM CDT) Only the most recent of2 resultswithin the time period is included. Pathologist [facility] WBC 9.1 4.0 - 10.7 x10E9/L 12/10/2024 12:27 AM [facility] RBC Count 5.46 4.30 - 5.80 x10E12/L 12/10/2024 12:27 AM [facility] Hemoglobin 15.6 13.3 - 17.5 g/dL 12/10/2024 12:27 AM [facility] Hematocrit 44.1 38.7 - 51.1 % 12/10/2024 12:27 AM [facility] MCV 80.8 80.0 - 98.0 fL 12/10/2024 12:27 AM [facility] MCH 28.6 26.7 - 33.6 pg 12/10/2024 12:27 AM [facility] MCHC 35.4 31.7 - 36.3 g/dL 12/10/2024 12:27 AM [facility] RDW-CV 14.2 11.3 - 14.8 % 12/10/2024 12:27 AM [facility] Platelet Count 289 150 - 420 x10E9/L 12/10/2024 12:27 AM [facility] MPV 9.4 7.8 - 11.4 fL 12/10/2024 12:27 AM [facility] Blood BLOOD SPECIMEN / Unknown Venipuncture / Unknown 12/09/2024 11:07 PM CDT 12/10/2024 12:03 AM CDT Dave Calderon MD LAB - HEMATOLOGY ORDERABLES Gaby aguilar Result [facility] [address] [place] [address], [facility] [phone] * (ABNORMAL) BASIC METABOLIC PANEL (CALCIUM TOTAL) (12/09/2024 11:07 PM T) Only the most recent of2 resultswithin the time period is included. BUN 9 7 - 26 mg/dL 12/10/2024 12:34 AM [facility] Creatinine 1.00 0.71 - 1.16 mg/dL 12/10/2024 12:34 AM [facility] Sodium 140 136 - 145 mmol/L 12/10/2024 12:34 AM [facility] Potassium 3.4(L) 3.5 - 4.5 mmol/L 12/10/2024 12:34 AM [facility] Chloride 104 98 - 107 mmol/L 12/10/2024 12:34 AM [facility] CO2 23 22 - 29 mmol/L 12/10/2024 12:34 AM [facility] Glucose 99 70 - 99 mg/dL 12/10/2024 12:34 AM [facility] Calcium 9.5 8.4 - 10.2 mg/dL 12/10/2024 12:34 AM [facility] Anion Gap 13 6 - 16 12/10/2024 12:34 AM [facility] BUN/Creatinine Ratio 9 7 - 23 12/10/2024 12:34 AM [facility] Osmolality Calculated 289 275 - 295 mOsm/kg 12/10/2024 12:34 AM [facility] eGFR by CKD-EPI >90 >=90 mL/min/1.7 3 m2 12/10/2024 12:34 AM CDT [facility] Blood BLOOD SPECIMEN / Unknown Venipuncture / Unknown 12/09/2024 11:07 PM CDT 12/10/2024 12:02 AM CDT Narrative [facility] - 12/10/2024 12:34 AM CDT Estimated Glomerular Filtration Rate (eGFR) calculated using the CKD-EPI Creatinine Equation (2020), per the National Kidney Foundation and [place] [employer] Neph[employer] recommendations. Dave Calderon MD LAB - CHEMISTRY ORDERABLES Final Result [address] [address], [facility] [phone] * PHOSPHORUS BLOOD (12/09/2024 11:07 PM CDT) Only the most recent of2 resultswithin the time period is included. Phosphorus 3.3 2.8 - 5.1 mg/dL 12/10/2024 12:34 AM CDT [facility] Blood BLOOD SPECIMEN / Unknown Venipuncture / Unknown 12/09/2024 11:07 PM CDT 12/10/2024 12:02 AM CDT Dave Calderon MD LAB - CHEMISTRY ORDERABLES Final Result [address] [address], [place] [phone] * MAGNESIUM BLOOD (12/09/2024 11:07 PM CDT) Only the most recent of2 resultswithin the time period is included. Magnesium 1.9 1.6 - 2.6 mg/dL 12/10/2024 12:34 AM CDT [facility] Blood BLOOD SPECIMEN / Unknown Venipuncture / Unknown 12/09/2024 11:07 PM CDT 12/10/2024 12:02 AM CDT us Dave Calderon MD LAB - CHEMISTRY ORDERABLES Final Result Performing Organization Address City/[facility]/ZIP Co de Phone Number [address] [address], [place] [phone] * VITAMIN B12 (12/08/2024 8:44 AM CDT) Vitamin B12 323 213 - 816 pg/mL 12/08/2024 10:01 AM T [facility] Blood BLOOD SPECIMEN / Unknown Lab Venipuncture / Unknown 12/08/2024 8:44 AM CDT 12/08/2024 9:00 AM CDT us Michael Foreman DO LAB - CHEMISTRY ORDERABLES Fin al Result Performing Organization Address [facility]/ZIP Co de Phone Number [address] [address], [place] [phone] * (ABNORMAL) URINE DRUG SCREEN IMMUNOASSAY (12/07/2024 3:09 PM CDT) [facility] Amphetamines Screen Urine Negative Negative : < 1000 ng/mL 12/07/2024 4:00 PM [facility] Barbiturates Screen Urine Negative Negative : < 200 ng/mL 12/07/2024 4:00 PM [facility] Benzodiazepine Screen Urine Positive(A) Negative : < 200 ng/mL 12/07/2024 4:00 PM [facility] Comment: Positive urine benzodiazepine screening results should be confirmed by another generally accepted non-immunological method such as gas chromatography or mass spectrometry. Opiates Urine Negative Negative : < 300 ng/mL 12/07/2024 4:00 PM [facility] Cocaine Metabolites Urine Negative Negative : < 300 ng/mL 12/07/2024 4:00 PM [facility] Phencyclidine Screen Urine Negative Negative : < 25 ng/ml 12/07/2024 4:00 PM [facility] Cannabinoids Screen Urine Positive(A) Negative : <50 ng/mL 12/07/2024 4:00 PM [facility] Comment:Positive urine canna binoids (THC) screening results should be confirmed by another generally accepted non-immunological method such as gas chromatography or mass spectrometry. Methadone Screen Urine Negative Negative : < 300 ng/mL 12/07/2024 4:00 PM [facility] Fentanyl Screen Urine Negative Negative : <1.5 ng/mL 12/07/2024 4:00 PM T [facility] Urine URINE / Unknown Collection / Unknown 12/07/2024 3:09 PM CDT 12/07/2024 3:17 PM CDT [facility] - 12/07/2024 4:00 PM CDT The Urine Toxicology Screening Panel does not screen for Propoxyphene, Meprobamate, Carisoprodol, Trazodone, [id number] medications and/or volatiles (Acetone, Isopropanol, Methanol or Ethylene Glycol). Ethanol, Salicylate, Acetaminophen, Tricyclic Antidepressants and several therapeutic drugs may be individually assayed in serum or plasma specimen. Toxicology testing by the [facility] is an aid to medical diagnosis and treatment of patients. No documented chain of custody was maintained. Results are intended to be used for clinical purposes only. us Amparo Nava PA-C LAB - URINE CHEMISTRY ORDERAB LES Final Result [facility] [address] [place] [address], [facility] [phone] * CBC W AUTO DIFFERENTIAL (12/07/2024 3:02 PM CDT) WBC 5.5 4.0 - 10.7 x10E9/L 12/07/2024 3:25 PM [facility] RBC Count 5.01 4.30 - 5.80 x10E12/L 12/07/2024 3:25 PM [facility] Hemoglobin 14.3 13.3 - 17.5 g/dL 12/07/2024 3:25 PM [facility] Hematocrit 40.8 38.7 - 51.1 % 12/07/2024 3:25 PM [facility] MCV 81.4 80.0 - 98.0 fL 12/07/2024 3:25 PM [facility] MCH 28.5 26.7 - 33.6 pg 12/07/2024 3:25 PM [facility] MCHC 35.0 31.7 - 36.3 g/dL 12/07/2024 3:25 PM [facility] RDW-CV 14.2 11.3 - 14.8 % 12/07/2024 3:25 PM [facility] Platelet Count 250 150 - 420 x10E9/L 12/07/2024 3:25 PM [facility] MPV 9.2 7.8 - 11.4 fL 12/07/2024 3:25 PM [facility] Neutrophil % 54.7 41.0 - 74.0 % 12/07/2024 3:25 PM [facility] Lymphocyte % 36.6 17.0 - 47.0 % 12/07/2024 3:25 PM [facility] Monocyte % 6.3 3.0 - 11.0 % 12/07/2024 3:25 PM [facility] Eosinophil % 1.3 0.0 - 7.0 % 12/07/2024 3:25 PM [facility] Basophil % 0.9 0.0 - 1.6 % 12/07/2024 3:25 PM [facility] Immature Granulocytes % 0.2 0.0 - 1.0 % 12/07/2024 3:25 PM [facility] Neutrophil Absolute 3.03 1.60 - 7.50 x10E9/L 12/07/2024 3:25 PM [facility] Lymphocyte Absolute 2.03 1.00 - 4.40 x10E9/L 12/07/2024 3:25 PM [facility] Monocyte Absolute 0.35 0.15 - 1.00 x10E9/L 12/07/2024 3:25 PM [facility] Eosinophil Absolute 0.07 0.00 - 0.60 x10E9/L 12/07/2024 3:25 PM [facility] Basophil Absolute 0.05 0.00 - 0.13 x10E9/L 12/07/2024 3:25 PM [facility] Blood BLOOD SPECIMEN / Unknown Venipuncture / Unknown 12/07/2024 3:02 PM CDT 12/07/2024 3:13 PM CDT Amparo Nava PA-C LAB - HEMATOLOGY ORDERABLES F inal Result [facility] [address] [place] [address], [facility] [phone] * COMPREHENSIVE METABOLIC PANEL (12/07/2024 3:02 PM CDT) BUN 9 7 - 26 mg/dL 12/07/2024 3:48 PM [facility] Creatinine 0.95 0.71 - 1.16 mg/dL 12/07/2024 3:48 PM [facility] Sodium 139 136 - 145 mmol/L 12/07/2024 3:48 PM [facility] Potassium 3.7 3.5 - 4.5 mmol/L 12/07/2024 3:48 PM [facility] Chloride 104 98 - 107 mmol/L 12/07/2024 3:48 PM [facility] CO2 26 22 - 29 mmol/L 12/07/2024 3:48 PM [facility] Glucose 86 70 - 99 mg/dL 12/07/2024 3:48 PM [facility] Calcium 9.1 8.4 - 10.2 mg/dL 12/07/2024 3:48 PM [facility] Protein Total 7.4 6.0 - 8.3 g/dL 12/07/2024 3:48 PM [facility] Albumin 4.3 3.4 - 5.0 g/dL 12/07/2024 3:48 PM [facility] Bilirubin Total 0.8 0.2 - 1.2 mg/dL 12/07/2024 3:48 PM [facility] Alkaline Phosphatase 92 40 - 150 U/L 12/07/2024 3:48 PM [facility] ALT 25 5 - 55 U/L 12/07/2024 3:48 PM [facility] AST 25 5 - 34 U/L 12/07/2024 3:48 PM CDT [facility] Anion Gap 9 6 - 16 12/07/2024 3:48 PM CDT [facility] BUN/Creatinine Ratio 9 7 - 23 12/07/2024 3:48 PM CDT [facility] Osmolality Calculated 286 275 - 295 mOsm/kg 12/07/2024 3:48 PM CDT [facility] Albumin/Globulin Ratio 1.4 1.1 - 2.3 12/07/2024 3:48 PM T [facility] eGFR by CKD-EPI >90 >=90 mL/min/1.7 3 m2 12/07/2024 3:48 PM CDT [facility] Blood BLOOD SPECIMEN / Unknown Venipuncture / Unknown 12/07/2024 3:02 PM CDT 12/07/2024 3:13 PM CDT [facility] - 12/07/2024 3:48 PM CDT Estimated Glomerular Filtration Rate (eGFR) calculated using the CKD-EPI Creatinine Equation (2020), per the National Kidney Foundation and [place] [employer]ph[employer] recommendations. Amparo Nava PA-C LAB - CHEMISTRY ORDERABLES nal Result [facility] [address] [place] [address], [facility] [phone] * (ABNORMAL) ALCOHOL ETHYL BLOOD (12/07/2024 3:02 PM CDT) Ethanol (mg/dL) 175(H) <10 mg/dL 3:48 PM CDT [facility] Ethanol Calculated (g/dL) 0.175(H) <=0.010 g/dL 12/07/2024 3:48 PM CDT [facility] Blood BLOOD SPECIMEN / Unknown Venipuncture / Unknown 12/07/2024 3:02 PM CDT 12/07/2024 3:13 PM CDT Narrative [facility] - 12/07/2024 3:48 PM CDT Ethanol Interp <10: None Detected. Depression of TELECOMMUNICATION TOWER TECHNICIAN: >100 mg/dl Potentially Critical: >250 mg/dl Potentially Fatal >400 mg/dl Ethanol in the patient's blood will contribute to the osmolar gap. Ethanol's contribution to the osmolar gap can be estimated by dividing the concentration of ethanol in mg/dL by 4.6. This test is for clinical use only and does not equal a NADJA for legal purposes. us Amparo Nava PA-C LAB - CHEMISTRY ORDERABLES Fi nal Result [address] [address], [facility] [phone] * HIV-1 HIV-2 ANTIBODY + HIV P24 AG PANEL (11/07/2021 8:38 AM CDT) [facility] HIV1/2 Ab + P24 Ag Non Reactive Non Reactive 11/07/2021 9:[address] [facility] [facility] Blood BLOOD SPECIMEN / Unknown Venipuncture / Unknown 11/07/2021 8:38 AM CDT 11/07/2021 8:[address] [facility] - 11/07/2021 9:40 AM CDT No Laboratory evidence of HIV infection. Niall Corbett MD LAB - CHEMISTRY ORDERABLES F inal Result Performing Organization Address City/[facility] Co de Phone Number [facility] [address] [place] [address] from Last 3 Months or Most Recently Relevant to Health Maintenance Additional Health Concerns Infection Onset Date Last Indicated C Diff Hx 12/03/2023 04/19/2024 Insurance [employer] Member Subscriber Plan / Payer (Ef fective 2024-Present) Name:Jorgito Henderson Relation to Subscriber:Self Name:Jorgito Henderson Payer ID:[id number] (NAIC) [facility] Address: [facility] [id number] [place] [phone] Advance Directives Documents on File Type Date Recorded Patient Utility Repairer Expl anation Adv Directive/Living Will/POA 09/08/2013 3:35 PM * Full Code (Latest Code Status on File) Date Activated Date Inactivated Comments 12/07/2024 8:47 PM 12/10/2024 2:21 PM * Full Code Date Activated Date Inactivated Comments 05/10/2024 9:31 PM 05/12/2024 3:07 PM * Full Code Date Activated Date Inactivated Comments 04/24/2024 1:45 PM 04/25/2024 3:29 PM * Full Code Date Activated Date Inactivated Comments 04/18/2024 7:00 PM 04/19/2024 3:07 PM * Full Code Date Activated Date Inactivated Comments 12/09/2023 10:58 AM 12/10/2023 2:15 PM
--- OUTSIDE RECORDS SUMMARY | 2025-01-05 18:40 | XMS_ITS | Clinical Summary ---
Author Organization [facility] Address [address] [place] [id number] Care Team Providers Care Steam Conditioning Operator Name Role Phone Unavailable Primary Care Provider Unavailabl e Allergies Active Allergy Reactions Criticality Noted Date Comments Escitalopram Nausea and Vomiting Low 02/16/2023 Haloperidol Lactate Other (See Comments) 2021 Oral/facial TD symptoms Prochlorperazine Other (See Comments) Causes anxiety Promethazine Other (See Comments) 04/11/2022 Causes anxiety Medications acetaminophen (TYLENOL) 325 mg tablet Take 2 Tablets (650 mg) by mouth every 6 hours as needed for Other (See Comment) (See admin instructions ). 5 Active mirtazapine (REMERON) 30 mg tablet Take 30 mg by mouth daily at bedtime. Active multivitamin tx with iron and folic acid tablet 18-400 mg-mcg Tablet Take 1 Tablet by mouth daily. 30 Tablet 10/31/2024 4:50 PM CDT 5 025 Discontinued ondansetron (ZOFRAN ODT) 4 mg Tablet, Rapid Dissolve Dissolve 1 Tablet (4 mg) on the tongue, then swallow with saliva every 8 hours as needed for Nausea/Vomit ing. 20 Tablet 10/31/2024 4:50 PM CDT 5 025 Discontinued cyanocobalamin (VITAMIN B-12) 500 mcg Tablet, Sublingual Place 1 Tablet (500 mcg) under tongue daily. 5 025 Discontinued mirtazapine (REMERON) 30 mg tablet Take One-Half Tablet (15 mg) by mouth at every night bedtime for 4 days, then take 1 Tablet (30 mg) every night at bedtime thereafter. 58 Tablet 10/31/2024 4:50 PM CDT 5 025 pantoprazole (Protonix) 40 mg Tablet, Delayed Release (E.C.) Take 1 Tablet (40 mg) by mouth 2 times daily. 60 Tablet 11/12/2024 2:44 PM CDT 5 025 aluminum-magne sium HYDROXIDE-urszula thicone (MAALOX PLUS ES) 400-400-40 mg/5 mL suspension Take 15 mL by mouth every 6 hours as needed for Dyspepsia. 335 mL 11/12/2024 2:44 PM CDT 5 025 Discontinued gabapentin (NEURONTIN) 300 mg capsule Take 1 Capsule (300 mg) by mouth daily at bedtime for 3 days, THEN 1 Capsule (300 mg) 2 times daily for 3 days, THEN 1 Capsule (300 mg) 3 times daily. 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 01/02/2025 Hyponatremia 11/10/2024 High anion gap metabolic acidosis 11/10/2024 PRABHU (acute kidney injury) 11/10/2024 Neutrophilic leukocytosis 11/10/2024 Alcohol dependence with withdrawal with complica tion 11/10/2024 Vitamin B12 deficiency (non anemic) 11/05/2024 Alcohol withdrawal syndrome without complication 04/06/2024 History of Clostridioides difficile colitis 12/03 Alcohol abuse 12/15/2023 Polysubstance abuse 12/15/2023 Acute alcoholic intoxication without complicatio n 12/01/2023 Withdrawal symptoms, alcohol, with perceptual di sturbance 11/19/2023 Cannabis hyperemesis syndrom e concurrent with and due to cannabis abuse 02/27/2023 Anxiety and depression 02/26/2023 Intractable nausea and vomiting 02/25/2022 Resolved Problems Problem Noted Date Diagnosed Date Resolved Date Hematemesis 12/01/2023 12/04/2023 Projectile vomiting with nausea 05/25/2023 12/01/2023 Dehydration 05/25/2023 12/01/2023 Major depressive disorder, r ecurrent episode, severe 02/27/2023 12/01/2023 Overview (02/27/2023): Nausea 02/27/2023 12/01/2023 Marijuana use 02/26/2023 12/04/2023 Acute diarrhea 02/25/2022 12/01/2023 Abdominal pain 02/25/2022 02/27/2023 C. difficile colitis 02/25/2022 023 Cannabis abuse 11/06/2021 02/27/2023 Nausea and vomiting 02/28/20 Encounters Date Type Department Care Team Description 01/03/2025 Travel 01/02/2025 9:18 AM CDT - 01/05/2025 8:47 AM CDT Hospital Encounter [facility] [address] [place] [address] Keegan Salgado MD Sineff, Sanford, MD Razzaque, Ahmer, DO Page, William J, MD Alcohol intoxication delirium with moderate or severe use disorder ([facility]) Discharge Disposition: Home or Self Care 12/26/2024 External Device Data STL ABSTRACTION Provider, Abstract 12/26/2024 External Device Data STL ABSTRACTION Provider, Abstract 12/20/2024 External Device Data STL ABSTRACTION Provider, Abstract 12/19/2024 External Device Data STL ABSTRACTION Provider, Abstract 12/19/2024 External Device Data STL ABSTRACTION Provider, Abstract 12/05/2024 External Device Data STL ABSTRACTION Provider, Abstract 11/22/2024 5:52 AM CDT - 11/24/2024 2:17 PM CDT Hospital Encounter [address] [address] Dorian Lozano DO Backer, Neil, MD Manny, Edvin Acevedo MD Intractable nausea and vomiting Discharge Disposition: Home or Self Care 11/10/2024 Travel 11/09/2024 7:02 PM CDT - 11/12/2024 2:41 PM CDT Hospital Encounter [facility] [address] [place] [address] Dorian Lozano DO Mustari, Akhi, MD Backer, Neil, MD Alcohol withdrawal syndrome without complication ([facility]) Discharge Disposition: Home or Self Care 10/31/2024 External Device Data STL ABSTRACTION Provider, Abstract 10/31/2024 External Device Data STL ABSTRACTION Provider, Abstract 10/31/2024 External Device Data STL ABSTRACTION Provider, Abstract 10/31/2024 Patient Outreach [facility] [address] [place] [address] Kanu [facility] (Establish PCP) 10/30/2024 4:58 AM CDT - 10/31/2024 7:00 PM CDT Hospital Encounter [facility] [address] [place] [address] Santo Mancini MD Kasireddy, Ravichandra, MD Vitamin B12 deficiency (non anemic) Discharge Disposition: Home or Self Care 10/26/2024 8:53 AM CDT - 10/26/2024 3:25 PM CDT Emergency [facility] Emergency Department [id number] [place] [address] Alondra Chawla MD Nausea and vomiting, unspecified vomiting type (Primary Dx) Discharge Disposition: Home or Self Care 10/26/2024 Travel 10/17/2024 External Device Data STL ABSTRACTION Provider, Abstract from Last 3 Months Immunizations Immunization Administration Dates Next Due INFLUENZA VACCINE QUADRIVALENT 6 MOS UP PF IM Influenza Seasonal Unspecified Formulation IM ,08/07/2020 Influenza, Unspecified Formulation 09/05/2013 Family History Medical History Relation Name Comments No Known Problems Father Cancer Maternal Grandfather Lung Cancer Maternal Grandmother Breast Cancer Mother Cancer Mother Liver Diabetes Mother Diabetes Other Heart Disease Other Diabetes Paternal Grandfather Diabetes Paternal Grandmother Relation Name Status Comments Father Maternal Grandfather Maternal Grandmother Mother Other Paternal Grandfather Paternal Grandmother Social History Tobacco Use Types Packs/Day Years Used Date Smoking Tobacco: Former Cigarettes Smokeless Tobacco: Never Tobacco Cessation:Counseling Given: Not Answered Alcohol Use Standard Drinks/Week Comments Yes 70 [...] Mass Index 24.34 01/02/2025 9:17 AM CDT Plan of Treatment Health Maintenance Due Date Last Done Comments DTAP/TDAP/TD VACCINES (1 - Tdap) 2009 HEPATITIS B VACCINES (1 of 3 - 19+ 3-dose series) 2009 COVID-19 Vaccine (2 - 2023-2 5 season) 2024 07/09/2021 Preventative Visit- Commercial 07/05/2024 08/28/2022 INFLUENZA VACCINE (#1) 2025 , 08/07/2020, 08/07/2020 Abdominal Aortic Aneurysm (AAA) Screening Completed 02/25/2022, 11/06/2021, 01/20/2019 HPV VACCINES Aged Out No longer eligi ble based on patient's age to complete this topic Procedures Procedure Name Priority Date/Time Associated Diagnosis Comments COMPREHENSIVE METABOLIC PANEL Routine 01/05/2025 5:27 AM CDT COMPREHENSIVE METABOLIC PANEL Routine 01/04/2025 5:15 AM CDT EKG 12-LEAD Stat 01/04/2025 3:46 AM CDT COMPREHENSIVE METABOLIC PANEL Routine 01/03/2025 3:20 AM CDT MAGNESIUM LEVEL Routine 01/03/2025 3:20 AM CDT DRUG SCREEN, URINE Stat 01/02/2025 7: 42 PM CDT URINALYSIS W/REFLEX MICROSCOPIC Stat 01/02/2025 7:42 PM CDT MAGNESIUM LEVEL Stat 01/02/2025 2:10 PM CDT LIPASE Stat 01/02/2025 9:42 AM CDT ETHANOL LEVEL Stat 01/02/2025 9:42 AM CDT COMPREHENSIVE METABOLIC PANEL Stat 01/02/2025 9:42 AM CDT CBC WITH DIFFERENTIAL Stat 01/02/2025 9:42 AM CDT EKG 12-LEAD Stat 01/02/2025 9:38 AM CDT CARDIAC EVENT MONITOR Routine 12/11/2024 5:00 AM CDT TELEMETRY REPORT 11/29/2024 3:41 PM CDT TELEMETRY REPORT 11/29/2024 2:33 PM CDT TELEMETRY REPORT 11/29/2024 2:31 PM CDT TELEMETRY REPORT 11/29/2024 8:44 AM CDT TELEMETRY REPORT 11/29/2024 8:11 AM CDT TELEMETRY REPORT 11/27/2024 9:37 AM CDT BASIC METABOLIC PANEL Routine 11/24/2024 2:13 AM CDT BASIC METABOLIC PANEL Routine 11/23/2024 4:00 PM CDT HEPATIC FUNCTION PANEL Routine 8:19 AM CDT CBC WITHOUT DIFFERENTIAL Stat 11/23/2024 8:19 AM CDT BASIC METABOLIC PANEL Stat 11/23/2024 8:19 AM CDT LACTIC ACID Stat 11/22/2024 4:08 PM CDT XR CHEST PA OR AP 1 VW Stat 8:33 AM CDT EXTRA TUBE (URINE FITZGERALD) Stat 11/23/19 7:50 AM CDT DRUG SCREEN, URINE Stat 11/22/2024 7: 50 AM CDT URINALYSIS W/REFLEX MICROSCOPIC Stat 11/22/2024 7:50 AM CDT PHOSPHORUS Routine 11/22/2024 7:21 AM CDT MAGNESIUM LEVEL Routine 11/22/2024 7:21 AM CDT ETHANOL LEVEL Stat 11/22/2024 7:21 AM CDT DIFFERENTIAL, MANUAL Stat 11/22/2024 6:14 AM CDT LIPASE Stat 11/22/2024 6:14 AM CDT COMPREHENSIVE METABOLIC PANEL Stat 11/22/2024 6:14 AM CDT CBC WITH DIFFERENTIAL Stat 11/22/2024 6:14 AM CDT CRITICAL CARE Routine 11/22/2024 5:52 AM CDT TELEMETRY REPORT 11/19/2024 10:5 6 AM CDT TELEMETRY REPORT 11/19/2024 10:4 8 AM CDT TELEMETRY REPORT 11/19/2024 10:4 8 AM CDT TELEMETRY REPORT 11/19/2024 10:4 8 AM CDT TELEMETRY REPORT 11/19/2024 10:3 1 AM CDT TELEMETRY REPORT 11/19/2024 10:1 1 AM CDT TELEMETRY REPORT 11/19/2024 10:1 1 AM CDT TELEMETRY REPORT 11/17/2024 10:3 8 AM CDT MAGNESIUM LEVEL Routine 11/12/2024 1:23 AM CDT RENAL FUNCTION PANEL Routine 11/12/2024 1:23 AM CDT TROPONIN Routine 11/11/2024 3:26 AM CDT COMPREHENSIVE METABOLIC PANEL Routine 11/11/2024 3:26 AM CDT CBC WITHOUT DIFFERENTIAL Routine 11/11/2024 3:26 AM CDT BASIC METABOLIC PANEL Stat 11/10/2024 5:38 PM CDT EKG 12-LEAD Stat 11/10/2024 5:09 PM CDT EXTRA TUBE (URINE FITZGERALD) Stat 11/11/19 25 8:35 AM CDT URINALYSIS W/REFLEX MICROSCOPIC Stat 11/10/2024 8:35 AM CDT DRUG SCREEN, URINE Stat 11/10/2024 8: 32 AM CDT MAGNESIUM LEVEL Routine 11/10/2024 3:12 AM CDT MAGNESIUM LEVEL Routine 11/10/2024 3:12 AM CDT PROCALCITONIN Stat 11/10/2024 3:12 AM CDT TROPONIN 6 HR, 5TH GEN Timed Study 3:12 AM CDT TROPONIN 2 HR, 5TH GEN Timed Study 9:39 PM CDT XR CHEST PA OR AP 1 VW Stat 8:59 PM CDT BLOOD CULTURE Stat 11/09/2024 8:49 PM CDT BLOOD CULTURE Stat 11/09/2024 8:49 PM CDT BLOOD CULTURE Stat 11/09/2024 8:49 PM CDT BLOOD CULTURE Stat 11/09/2024 8:[address] ABDOMEN PELVIS W CONTRAST Stat 11/09/2024 8:28 PM CDT TROPONIN BASELINE, 5TH GEN Stat 11/09/2024 7:21 PM CDT LIPASE Stat 11/09/2024 7:21 PM CDT ETHANOL LEVEL Stat 11/09/2024 7:21 PM CDT COMPREHENSIVE METABOLIC PANEL Stat 11/09/2024 7:21 PM CDT CBC WITH DIFFERENTIAL Stat 11/09/2024 7:21 PM CDT EKG 12-LEAD Stat 11/09/2024 7:11 PM CDT CRITICAL CARE Routine 11/09/2024 7:02 PM CDT TELEMETRY REPORT 11/05/2024 11:3 0 AM CDT TELEMETRY REPORT 11/02/2024 12:2 2 PM CDT LACTIC ACID Routine 10/31/2024 9:56 AM CDT LIPASE Routine 10/31/2024 5:35 AM CDT XR ABDOMEN 1 VW Stat 10/30/2024 8:14 AM CDT EKG 12-LEAD Stat 10/30/2024 6:22 AM CDT MAGNESIUM LEVEL Routine 10/30/2024 5:49 AM CDT VITAMIN B12 LEVEL Routine 10/30/2024 5:4 9 AM CDT C-REACTIVE PROTEIN Routine 10/30/2024 5: 49 AM CDT KETONES/BETA HYDROXYBUTYRATE Stat 10/30/2024 5:49 AM CDT LACTIC ACID Stat 10/30/2024 5:49 AM CDT ETHANOL LEVEL Stat 10/30/2024 5:49 AM CDT LIPASE Stat 10/30/2024 5:30 AM CDT COMPREHENSIVE METABOLIC PANEL Stat 10/30/2024 5:30 AM CDT CBC WITH DIFFERENTIAL Stat 10/30/2024 5:30 AM CDT EKG 12-LEAD Stat 10/26/2024 12:18 PM CDT MAGNESIUM LEVEL Stat 10/26/2024 9:33 AM CDT LIPASE Stat 10/26/2024 9:33 AM CDT ETHANOL LEVEL Stat 10/26/2024 9:33 AM CDT COMPREHENSIVE METABOLIC PANEL Stat 10/26/2024 9:33 AM CDT CBC WITH DIFFERENTIAL Stat 10/26/2024 9:[address] ABDOMEN PELVIS WO CONTRAST Stat 02/25/2022 2:06 PM CDT from Last 3 Months or Most Recently Relevant to Health Maintenance Results * (ABNORMAL) COMPREHENSIVE METABOLIC PANEL (01/05/2025 5:27 AM CDT) Only the most recent of9 resultswithin the time period is included. SODIUM 137 136 - 145 mmol/L 01/05/2025 6:27 AM T [facility] - [facility] POTASSIUM 3.4(L) 3.5 - 5.0 mmol/L 01/05/2025 6:27 AM T [facility] CHLORIDE 103 98 - 107 mmol/L 01/05/2025 6:27 AM T [facility] - [facility] CO2 21(L) 22 - 29 mmol/L 01/05/2025 6:27 AM T [facility] - [facility] CALCIUM 9.0 8.6 - 10.2 mg/dL 01/05/2025 6:27 AM T [facility] - [facility] BUN 7 6 - 20 mg/dL 01/05/2025 6:27 AM T [facility] - [facility] CREATININE 0.93 0.67 - 1.17 mg/dL 01/05/2025 6:27 AM T [facility] - [facility] GLUCOSE 88 74 - 99 mg/dL 01/05/2025 6:27 AM T [facility] - [facility] TOTAL PROTEIN 6.4(L) 6.7 - 8.6 g/dL 01/05/2025 6:27 AM [facility] - [facility] ALBUMIN 3.9 3.5 - 5.2 g/dL 01/05/2025 6:27 AM [facility] - [facility] BILIRUBIN TOTAL 0.3 0.0 - 1.2 mg/dL 01/05/2025 6:27 AM T [facility] - [facility] ALKALINE PHOSPHATASE 102 40 - 129 U/L 01/05/2025 6:27 AM T [facility] - [facility] AST 18 <41 U/L 01/05/2025 6:27 AM CDT [facility] - [facility] ALT 19 <42 U/L 01/05/2025 6:27 AM T [facility] - [facility] GFR >60 >=60 mL/min/1.7 3 sq meter 01/05/2025 6:27 AM CDT [facility] Comment:eGFR calculated with 2020 CKD-EPI equation. Vegetarian diet, extremely high or low muscle mass, and may affect results. Cystatin C with Glomerular Filtration Rate is a suitable alternative for these patients. ANION GAP 13 8 - 16 mmol/L 01/05/2025 6:27 AM CDT [facility] Blood Venipuncture / Unknown 01/05/2025 5:27 AM CDT 01/05/2025 5:36 AM CDT Narrative [facility] - 01/05/2025 6:27 AM CDT Samples containing indocyanine green cause interferences on Total and/or Direct Bilirubin and must not be measured. us Kaylyn Sousa NP CHEMISTRY ORDERABLES Final Resul t [facility]# [id number] [address] [place] [address] * EKG 12-LEAD (01/04/2025 3:46 AM CDT) Only the most recent of6 resultswithin the time period is included. 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 : 1990 Requested By: KEEGAN Godwin Order Number: [id number] Anurag MD: Bernardo Mcwilliams Measurements Intervals [place] Rate: 56 P: 47 ME: 149 QRS: 54 QRSD: 88 T: 65 QT: 420 QTc: 407 Interpretive Statements SINUS BRADYCARDIA WITH MARKED SINUS ARRHYTHMIA BASELINE ARTIFACT IS PRESENT Electronically Signed On 01-04-2025 13:03:23 CDT by Bernardo Mcwilliams Procedure Note Bernardo Mcwilliams MD - 01/04/2025 [facility] [address], [place] [address] Test Date: 2025-01-04 Pat Name: YANETH PHILLIPS Department: 58 Room: [address] [place] [address] Gender: Male Truck Manager: 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 : 1990 Requested By: KEEGAN Godwin Order Number: [id number] Reading MD: Bernardo Mcwilliams Measurements Intervals [place] Rate: 56 P: 47 ME: 149 QRS: 54 QRSD: 88 T: 65 QT: 420 QTc: 407 Interpretive Statements SINUS BRADYCARDIA WITH MARKED SINUS ARRHYTHMIA BASELINE ARTIFACT IS PRESENT Electronically Signed On 01-04-2025 13:03:23 CDT by Bernardo Mcwilliams us Alanna Whittington PA-C ECG ORDERABLES Final Resul t Performing Organization Address City/[facility] Co de Phone Number INTERFACE SYSTEM Refer to clinic/hospital department * MAGNESIUM LEVEL (01/03/2025 3:20 AM CDT) Only the most recent of8 resultswithin the time period is included. MAGNESIUM 2.0 1.6 - 2.6 mg/dL 01/03/2025 4:23 AM CDT [facility] Blood Venipuncture / Unknown 01/03/2025 3:20 AM CDT 01/03/2025 3:37 AM CDT us Kaylyn Sousa NP CHEMISTRY ORDERABLES Final Resul t Performing Organization Address [facility] Co de Phone Number [facility] CLIA# [id number] [address] [place] [address] * (ABNORMAL) DRUG SCREEN, URINE (01/02/2025 7:42 PM CDT) Only the most recent of3 resultswithin the time period is included. AMPHETAMINE QUAL, URINE Negative Negative 01/02/2025 8:38 PM CDT [facility] BARBITURATE QUAL, URINE Presumptive Positive(A) Negative 01/02/2025 8:38 PM CDT [facility] BENZODIAZEPINE QUAL, URINE Presumptive Positive(A) Negative 01/02/2025 8:38 PM CDT [facility] COCAINE QUAL URINE Negative Negative 01/02/2025 8:38 PM [facility] OPIATE QUAL, URINE Negative Negative 01/02/2025 8:38 PM [facility] CANNABINOIDS QUAL, URINE Presumptive Positive(A) Negative 01/02/2025 8:38 PM CDT [facility] PCP QUAL, URINE Negative Negative 8:38 PM [facility] OXYCODONE QUAL, URINE Negative Negative 01/02/2025 8:38 PM [facility] METHADONE QUAL, URINE Negative Negative 01/02/2025 8:38 PM [facility] FENTANYL QUAL, URINE Negative Negative 01/02/2025 8:38 PM [facility] CREATININE, URINE 247.0 40.0 - 278.0 mg/dL 01/02/2025 8:38 PM [facility] Comment:Reference Range vari es with fluid intake and diet. Urine URINE SPECIMEN OBTAINED BY CLEAN CATCH PROCEDURE / Unknown Collection / Unknown 01/02/2025 7:42 PM CDT 01/02/2025 8:00 PM CDT [facility] - 01/02/2025 8:38 PM CDT This test [...] Negative 25 ng/mL Fentanyl Negative 5 ng/mL Keegan Salgado MD URINE ORDERABLES Final Resul t [facility] - [facility]# [id number] [address] [place] [address] * (ABNORMAL) URINALYSIS WITH REFLEX MICROSCOPIC (01/02/2025 7:42 PM CDT) Only the most recent of3 resultswithin the time period is included. COLOR UA Yellow Pale to Dark Yellow 01/02/2025 8:21 PM CDT [facility] - [facility] CLARITY UA Clear Clear 01/02/2025 8:21 PM CDT [facility] - [facility] SPECIFIC GRAVITY UA 1.024 1.003 - 1.035 01/02/2025 8:21 PM CDT [facility] - . [facility] PH UA 7.0 5.0 - 8.0 01/02/2025 8:21 PM CDT [facility] - [facility] LEUKOCYTE ESTERASE UA Negative Negative 01/02/2025 8:21 PM CDT [facility] - [facility] NITRITE UA Negative Negative 01/02/2025 8:21 PM CDT [facility] - [facility] PROTEIN UA 1+(A) Negative 01/02/2025 8:21 PM CDT [facility] - [facility] GLUCOSE UA Negative Negative 01/02/2025 8:21 PM CDT [facility] - [facility] KETONES UA Negative Negative 01/02/2025 8:21 PM CDT [facility] - [facility] UROBILINOGEN UA Normal <2.0 mg/dL 8:21 PM CDT [facility] - [facility] BILIRUBIN UA Negative Negative 01/02/2025 8:21 PM CDT [facility] - [facility] BLOOD UA Negative Negative 01/02/2025 8:21 PM CDT [facility] - [facility] WBC UA 0-2 0 - 2 /hpf 01/02/2025 8:21 PM CDT [facility] - [facility] RBC UA 0-2 0 - 2 /hpf 01/02/2025 8:21 PM CDT [facility] - [facility] BACTERIA UA Negative Negative /hpf 01/02/2025 8:21 PM T [facility] - [facility] EPITHELIAL CELLS, URINE 0-5 0 - 5 /hpf 01/02/2025 8:21 PM T [facility] - [facility] Urine URINE SPECIMEN OBTAINED BY CLEAN CATCH PROCEDURE / Unknown Collection / Unknown 01/02/2025 7:42 PM CDT 01/02/2025 8:14 PM CDT Keegan Salgado MD URINE ORDERABLES Final Resul t [facility] [employer] [facility] [id number] [address] [facility] [address] * (ABNORMAL) CBC WITH DIFFERENTIAL (01/02/2025 9:42 AM CDT) Only the most recent of5 resultswithin the time period is included. WBC 7.6 4.0 - 9.8 K/uL 01/02/2025 10:09 AM [facility] [employer] [facility] - [facility] RBC 5.28 4.50 - 5.40 M/uL 01/02/2025 10:09 AM [facility] [employer] LABORATORY SERVICES - [facility] HEMOGLOBIN 15.2 13.6 - 16.5 g/dL 01/02/2025 10:09 AM [facility] [employer] [facility] - [facility] HEMATOCRIT 44.6 40.0 - 48.0 % 01/02/2025 10:09 AM [facility] [employer] LABORATORY SERVICES - [facility] MCV 84.5 82.0 - 99.0 fL 01/02/2025 10:09 AM [facility] [employer] [facility] - [facility] MCH 28.8 27.2 - 32.6 pg 01/02/2025 10:09 AM [facility] [employer] [facility] - [facility] MCHC 34.1 31.5 - 35.5 g/dL 01/02/2025 10:09 AM [facility] [employer] [facility] - [facility] RDW 14.3 11.5 - 14.5 % 01/02/2025 10:09 AM [facility] [facility] - [facility] RDW-STDEV 43.8 37.1 - 48.7 fL 01/02/2025 10:09 AM [employer] [facility] - [facility] PLATELETS 397(H) 140 - 350 K/uL 01/02/2025 10:09 AM [employer] [facility] - . [facility] MPV 9.3 9.3 - 12.4 fL 01/02/2025 10:09 AM [facility] - [facility] NEUTROPHILS 63 % 01/02/2025 10:09 AM [facility] - [facility] LYMPHOCYTES 26 % 01/02/2025 10:09 AM [employer] [facility] - . [facility] MONOCYTES 8 % 01/02/2025 10:09 AM [employer] [facility] - . [facility] EOSINOPHILS 2 % 01/02/2025 10:09 AM [employer] [facility] - . [facility] BASOPHILS 1 % 01/02/2025 10:09 AM [facility] - [facility] IMMATURE GRANULOCYTES 1 % 01/02/2025 10:09 AM [employer] [facility] - . [facility] Comment:IG (Immature Granulo cyte) count includes Metamyelocytes, Myelocytes, and Promyelocytes NEUTROPHIL ABSOLUTE 4.79 1.90 - 7.00 K/uL 01/02/2025 10:09 AM [employer] [facility] - . [facility] LYMPHOCYTE ABSOLUTE 1.93 0.70 - 4.50 K/uL 01/02/2025 10:09 AM [facility] - [facility] MONOCYTE ABSOLUTE 0.63 0.10 - 1.30 K/uL 01/02/2025 10:09 AM [employer] [facility] - [facility] EOSINOPHIL ABSOLUTE 0.11 0.00 - 0.70 K/uL 01/02/2025 10:09 AM [employer] [facility] - [facility] BASOPHILS ABSOLUTE 0.08 0.00 - 0.20 K/uL 01/02/2025 10:09 AM [employer] [facility] - . [facility] IMMATURE GRANULOCYTES ABSOLUTE 0.04(H) 0.00 - 0.03 K/uL 01/02/2025 10:09 AM [employer] [facility] - . [facility] Blood Venipuncture / Unknown 01/02/2025 9:42 AM CDT 01/02/2025 9:47 AM CDT Keegan Salgado MD HEMATOLOGY ORDERABLES Final Result Performing Organization Address [facility]/ZIP Co de Phone Number [facility]# [id number] [address] [place] [address] * LIPASE (01/02/2025 9:42 AM CDT) Only the most recent of6 resultswithin the time period is included. LIPASE 23 13 - 60 U/L 01/02/2025 10:32 AM CDT [facility] Blood Venipuncture / Unknown 01/02/2025 9:42 AM CDT 01/02/2025 9:47 AM CDT Keegan Salgado MD CHEMISTRY ORDERABLES Final R esult Performing Organization Address [facility] Co de Phone Number [facility]# [id number] [address] [place] [address] * (ABNORMAL) ETHANOL LEVEL (01/02/2025 9:42 AM CDT) Only the most recent of5 resultswithin the time period is included. ETHANOL 130.00(H) <10.10 mg/dL 01/02/2025 10:32 AM CDT [facility] ETHANOL % 0.13 %w/v 01/02/2025 10:32 AM CDT [facility] Blood Venipuncture / Unknown 01/02/2025 9:42 AM CDT 01/02/2025 9:47 AM CDT Keegan Salgado MD CHEMISTRY ORDERABLES Final R esult Performing Organization Address City/[facility]/ZIP Co de Phone Number [facility] [employer] [facility]# [id number] [address] [place] [address] * CARDIAC EVENT MONITOR (12/11/2024 5:00 AM CDT) 12/11/2024 5:00 AM CDT Narrative INTERFACE SYSTEM - 12/13/2024 6:30 [place] [address] Test Date: 2024-12-11 Pat Name: YANETH PHILLIPS Department: Room: [address] [place] [address] Gender: Male 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1990 Requested By: DORIAN Godwin Order Number: [id number] Anurag MD: Jovi Ornelas Interpretive Statements Technical summary: 1: Only 3 strips available for review during the study 2: Patient's baseline rhythm for his event monitor showing sinus rhythm 3: Patient maintained either sinus rhythm or mild sinus bradycardia for the duration of the study 4: No symptoms reported during the study 5: No paroxysmal SVT, atrial fibrillation or flutter noted Electronically Signed On 12-13-2024 6:30:59 CDT by Jovi Ornelas Procedure Note Jovi Ornelas MD - 12/13/2024 [place] [address] Test Date: 2024-12-11 Pat Name: YANETH PHILLIPS Department: Room: [facility] Gender: Male 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1990 Requested By: DORIAN Godwin Order Number: [id number] Anurag POPE: Jovi Ornelas Interpretive Statements Technical summary: 1: Only 3 strips available for review during the study 2: Patient's baseline rhythm for his event monitor showing sinus rhythm 3: Patient maintained either sinus rhythm or mild sinus bradycardia forthe duration of the study 4: No symptoms reported during the study 5: No paroxysmal SVT, atrial fibrillation or flutter noted Electronically Signed On 12-13-2024 6:30:59 CDT by Jovi Ornelas us Ghassan Cadena MD CARDIAC SERVICES ORDERABLES Gaby aguilar Result INTERFACE SYSTEM Refer to clinic/hospital department * TELEMETRY REPORT (11/29/2024 3:41 PM CDT) Only the most recent of16 resultswithin the time period is included. us Provider Scanning ECG ORDERABLES Final Result * (ABNORMAL) BASIC METABOLIC PANEL (11/24/2024 2:13 AM CDT) Only the most recent of4 resultswithin the time period is included. SODIUM 139 136 - 145 mmol/L 11/24/2024 3:41 AM CDT [facility] POTASSIUM 4.3 3.4 - 5.1 mmol/L 11/24/2024 3:41 AM T [facility] Comment:Slightly hemolyzed. Result may be falsely elevated. CHLORIDE 104 98 - 107 mmol/L 11/24/2024 3:41 AM CDT [facility] CO2 22 22 - 29 mmol/L 11/24/2024 3:41 AM T [facility] CALCIUM 9.2 8.6 - 10.4 mg/dL 11/24/2024 3:41 AM CDT [facility] BUN 14 6 - 20 mg/dL 11/24/2024 3:41 AM T [facility] CREATININE 1.39(H) 0.67 - 1.17 mg/dL 11/24/2024 3:41 AM T [facility] GLUCOSE 100(H) 74 - 99 mg/dL 11/24/2024 3:41 AM T [facility] GFR >60 >=60 mL/min/1.7 3 sq meter 11/24/2024 3:41 AM T [facility] Comment:eGFR calculated with 2020 CKD-EPI equation. Vegetarian diet, extremely high or low muscle mass, and may affect results. Cystatin C with Glomerular Filtration Rate is a suitable alternative for these patients. ANION GAP 13 8 - 16 mmol/L 11/24/2024 3:41 AM T [facility] Blood Venipuncture / Unknown 11/24/2024 2:13 AM CDT 11/24/2024 3:07 AM CDT Ghassan Cadena MD CHEMISTRY ORDERABLES Final Resul t [facility] TIARA# [id number] [place] [address] * (ABNORMAL) CBC WITHOUT DIFFERENTIAL (11/23/2024 8:19 AM CDT) Only the most recent of2 resultswithin the time period is included. WBC 6.9 4.0 - 9.8 K/uL 11/23/2024 8:52 AM CDT [facility] RBC 5.14 4.50 - 5.40 M/uL 11/23/2024 8:52 AM CDT [facility] HEMOGLOBIN 14.6 13.6 - 16.5 g/dL 11/23/2024 8:52 AM CDT [facility] HEMATOCRIT 42.8 40.0 - 48.0 % 11/23/2024 8:52 AM CDT [facility] MCV 83.3 82.0 - 99.0 fL 11/23/2024 8:52 AM CDT [facility] MCH 28.4 27.2 - 32.6 pg 11/23/2024 8:52 AM CDT [facility] MCHC 34.1 31.5 - 35.5 g/dL 11/23/2024 8:52 AM CDT [facility] PLATELETS 386(H) 140 - 350 K/uL 11/23/2024 8:52 AM CDT [facility] MPV 9.2(L) 9.3 - 12.4 fL 11/23/2024 8:52 AM CDT [facility] RDW 13.7 11.5 - 14.5 % 11/23/2024 8:52 AM CDT [facility] RDW-STDEV 42.0 37.1 - 48.7 fL 11/23/2024 8:52 AM T [facility] Blood Venipuncture / Unknown 11/23/2024 8:19 AM CDT 11/23/2024 8:37 AM CDT Ghassan Cadena MD HEMATOLOGY ORDERABLES Final Resu lt Performing Organization Address City/[facility]/ZIP Co de Phone Number [facility] CLIA# [id number] [place] [address] * (ABNORMAL) HEPATIC FUNCTION PANEL (11/23/2024 8:19 AM CDT) [facility] TOTAL PROTEIN 6.3 6.3 - 8.7 g/dL 11/23/2024 2:59 PM CDT [facility] ALBUMIN 4.0 3.5 - 5.2 g/dL 11/23/2024 2:59 PM CDT [facility] BILIRUBIN TOTAL 1.2 0.0 - 1.2 mg/dL 11/23/2024 2:59 PM CDT [facility] BILIRUBIN DIRECT 0.4(H) 0.0 - 0.3 mg/dL 11/23/2024 2:59 PM CDT [facility] ALKALINE PHOSPHATASE 77 40 - 150 U/L 11/23/2024 2:59 PM CDT [facility] AST 15 0 - 41 U/L 11/23/2024 2:59 PM CDT [facility] ALT 12 0 - 41 U/L 11/23/2024 2:59 PM CDT [facility] Blood Venipuncture / Unknown 11/23/2024 8:19 AM CDT 11/23/2024 8:37 AM CDT Ghassan Cadena MD CHEMISTRY ORDERABLES Final Resul t Performing Organization Address City/[facility]/ZIP Co de Phone Number [facility] CLIA# [id number] [place] [address] * LACTIC ACID (11/22/2024 4:08 PM CDT) Only the most recent of3 resultswithin the time period is included. LACTIC ACID 1.1 <=2.0 mmol/L 11/22/2024 5:19 PM CDT [facility] Blood Venipuncture / Unknown 11/22/2024 4:08 PM CDT 11/22/2024 4:49 PM CDT Ericka Olivo NP CHEMISTRY ORDERABLES Final Resu lt [facility]# [id number] [place] [address] * XR CHEST PA OR AP 1 VW (11/22/2024 8:33 AM CDT) Only the most recent of2 resultswithin the time period is included. Anatomical Region Laterality Modality Chest Computed Radiogr aphy 11/22/2024 8:33 AM CDT Impressions 11/22/2024 8:36 AM CDT IMPRESSION: 1. No acute pulmonary abnormality DICTATION LOCATION: Location 7 - [facility] Narrative 11/22/2024 8:36 AM CDT XR CHEST PA OR AP 1 VW DATE: 11/22/2024 8:33 AM HISTORY: Hypoxia. FINDINGS: Comparison is made to exam of 11/09/2024. The heart size is normal. The lungs are clear. No pleural effusion or pneumothorax present. The osseous structures are normal. Ericka Olivo NP DIAGNOSTIC IMAGING ORDERABLES E dited Result - Final * EXTRA TUBE (URINE FITZGERALD) (11/22/2024 7:50 AM CDT) Only the most recent of2 resultswithin the time period is included. Urine URINE SPECIMEN OBTAINED BY CLEAN CATCH PROCEDURE / Unknown Collection / Unknown 11/22/2024 7:50 AM CDT 11/22/2024 7:55 AM CDT Dorian Lozano DO URINE ORDERABLES Final Result [id number] [place] [address] * PHOSPHORUS (11/22/2024 7:21 AM CDT) [facility] PHOSPHORUS 2.7 2.5 - 4.5 mg/dL 11/22/2024 1:12 PM CDT [facility] Blood Venipuncture / Unknown 11/22/2024 7:21 AM CDT 11/22/2024 7:39 AM CDT Ghassan Cadena MD CHEMISTRY ORDERABLES Final Resul t [facility] [id number] [place] [address] * (ABNORMAL) MANUAL DIFFERENTIAL (11/22/2024 6:14 AM CDT) [facility] SEGMENTED NEUTROPHILS 80 % 11/22/2024 7:27 AM CDT [facility] LYMPHOCYTES RELATIVE 15(L) 43 - 53 % 11/22/2024 7:27 AM CDT [facility] MONOCYTES RELATIVE 5 % 11/22/2024 7:27 AM T [facility] NEUTROPHILS ABSOLUTE COUNT 10.48(H) 1.90 - 7.00 K/uL 11/22/2024 7:27 AM T [facility] LYMPHOCYTES ABSOLUTE 1.91 0.70 - 4.50 K/uL 11/22/2024 7:27 AM T [facility] MONOCYTES ABSOLUTE 0.71 0.10 - 1.30 K/uL 11/22/2024 7:27 AM CDT [facility] TOTAL CELLS COUNTED IN DIFF 110 11/22/2024 7:27 AM T [facility] RBC MORPHOLOGY abnormal 11/22/2024 7:27 AM CDT [facility] PLATELET EST. Adequate 11/22/2024 7:27 AM CDT [facility] ANISOCYTOSIS 1+ /hpf 11/22/2024 7:27 AM CDT [facility] [employer] [facility] POIKILOCYTES 1+ /hpf 11/22/2024 7:27 AM CDT [facility] [employer] [facility] Blood Venipuncture / Unknown 11/22/2024 6:14 AM CDT 11/22/2024 6:50 AM CDT Result [facility] Dorian Lozano DO HEMATOLOGY ORDERABLES COM Final Result [facility] [employer] [facility] CLIA# [id number] [place] [address] * Critical Care (11/22/2024 5:52 AM CDT) Narrative Dorian Lozano DO - 11/22/2024 5:52 AM CDT Dorian Lozano DO 11/22/2024 10:54 AM Critical Care Performed by: Dorian Lozano DO Authorized by: Dorian Lozano DO Critical care provider statement: Critical care time (minutes): 35 Critical care time was exclusive of: Separately billable procedures and treating other patients Critical care was necessary to treat or prevent imminent or life-threatening deterioration of the following conditions: Toxidrome (electrolyte derangment) Critical care was time spent personally by me on the following activities: Blood draw for specimens, development of treatment plan with patient or surrogate, evaluation of patient's response to treatment, examination of patient, obtaining history from patient or surrogate, ordering and performing treatments and interventions, ordering and review of laboratory studies, ordering and review of radiographic studies, pulse oximetry, re-evaluation of patient's condition and review of old charts Dorian Lozano DO PROCEDURE/MINOR SURGICAL ORDERA BLES Final Result * (ABNORMAL) RENAL FUNCTION PANEL (11/12/2024 1:23 AM CDT) SODIUM 135(L) 136 - 145 mmol/L 11/12/2024 2:13 AM CDT [facility] [employer] [facility] POTASSIUM 3.2(L) 3.4 - 5.1 mmol/L 11/12/2024 2:13 AM CDT [facility] CHLORIDE 99 98 - 107 mmol/L 11/12/2024 2:13 AM CDT [facility] CO2 22 22 - 29 mmol/L 11/12/2024 2:13 AM CDT [facility] CALCIUM 9.1 8.6 - 10.4 mg/dL 11/12/2024 2:13 AM CDT [facility] BUN 11 6 - 20 mg/dL 11/12/2024 2:13 AM CDT [facility] CREATININE 1.14 0.67 - 1.17 mg/dL 11/12/2024 2:13 AM CDT [facility] GLUCOSE 98 74 - 99 mg/dL 11/12/2024 2:13 AM T [facility] ALBUMIN 4.0 3.5 - 5.2 g/dL 11/12/2024 2:13 AM CDT [facility] PHOSPHORUS 3.5 2.5 - 4.5 mg/dL 11/12/2024 2:13 AM T [facility] GFR >60 >=60 mL/min/1.7 3 sq meter 11/12/2024 2:13 AM T [facility] Comment:eGFR calculated with 2020 CKD-EPI equation. Vegetarian diet, extremely high or low muscle mass, and may affect results. Cystatin C with Glomerular Filtration Rate is a suitable alternative for these patients. ANION GAP 14 8 - 16 mmol/L 11/12/2024 2:13 AM T [facility] Blood Venipuncture / Unknown 11/12/2024 1:23 AM CDT 11/12/2024 1:44 AM CDT Ghassan Cadena MD CHEMISTRY ORDERABLES Final Resul t [facility] CLIA# [id number] [place] [address] * TROPONIN (11/11/2024 3:26 AM CDT) TROPONIN T, 5TH GEN 8 <=15 ng/L 11/11/2024 8:45 AM CDT [facility] Blood Venipuncture / Unknown 11/11/2024 3:26 AM CDT 11/11/2024 3:44 AM CDT [facility] - 11/11/2024 8:45 AM CDT Troponin Detectable but normal range. Ghassan Cadena MD CHEMISTRY ORDERABLES Final Resul t [facility] CLIA# [id number] [place] [address] * TROPONIN 6 HR, 5TH GEN (11/10/2024 3:12 AM CDT) TROPONIN T, 6 HR 5TH GEN 10 <=15 ng/L 11/10/2024 3:55 AM CDT [facility] DELTA 6HR TROPONIN T -1 See Interp. 11/10/2024 3:55 AM CDT [facility] Blood Venipuncture / Unknown 11/10/2024 3:12 AM CDT 11/10/2024 3:27 AM CDT [facility] - 11/10/2024 3:55 AM CDT Troponin Detectable but normal range. Delta indeterminate. Delay in collection of timed specimen beyond recommended collection interval. Results must be interpreted in clinical context. Dorian Lozano DO CHEMISTRY ORDERABLES Final Resu lt [facility] CLIA# [id number] [place] [address] * PROCALCITONIN (11/10/2024 3:12 AM CDT) PROCALCITONIN 0.11 <2.01 ng/mL 11/10/2024 4:03 AM CDT [facility] Blood Venipuncture / Unknown 11/10/2024 3:12 AM CDT 11/10/2024 3:27 AM CDT Narrative [facility] - 11/10/2024 4:03 AM CDT The utility of procalcitonin is limited/NOT recommended in certain populations (e.g. newborns, dialysis/ESRD, patients with recent major surgery/trauma/richard, liver cirrhosis, viral hepatitis, certain cancers, etc.). Procalcitonin levels MUST be interpreted in the context of the patient's clinical condition and CANNOT be solely relied upon for diagnosis of infection. <0.25 ng/mL: Bacterial infection unlikely, particularly lower respiratory tract infections. <0.5 ng/mL: Low risk for progression to severe sepsis/septic shock. Localized infection possible. Measurements done early (<6 hours) after systemic process starts may still be low. 0.5-2 ng/mL: Moderate risk for progression to severe sepsis/septic shock. >2 ng/mL: High risk for progression to severe sepsis/septic shock. If antibiotics ARE administered, repeat testing is recommended every 2-3 days to help guide antibiotic cessation. Once a decrease of 80% or more has occurred from baseline, discontinuation of antibiotics should strongly be considered in clinically stable patients. Procalcitonin is produced in the setting of systemic inflammation, particularly bacterial infections. It is detectable within 2-4 hours and peaks within 6-24 hours. Pamella Hurd MD CHEMISTRY ORDERABLES Final Resul t [facility] CLIA# [id number] [place] [address] * TROPONIN 2 HR, 5TH GEN (11/09/2024 9:39 PM CDT) TROPONIN T, 2 HR 5TH GEN 9 <=15 ng/L 11/09/2024 10:25 PM CDT [facility] DELTA 2HR TROPONIN T -2 See Interp. 11/09/2024 10:25 PM CDT [facility] Blood Venipuncture / Unknown 11/09/2024 9:39 PM CDT 11/09/2024 9:57 PM CDT Narrative [facility] - 11/09/2024 10:25 PM CDT Troponin Detectable but normal range. Delta not changing. Dorian Lozano DO CHEMISTRY ORDERABLES Final Resu lt Performing Organization Address City/[facility]/ZIP Co de Phone Number [facility] CLIA# [id number] [place] [address] * BLOOD CULTURE (11/09/2024 8:49 PM CDT) Only the most recent of2 resultswithin the time period is included. BLOOD CULTURE No growth 11/15/2024 10:47 AM CDT [facility] Blood (Peripheral) Venipuncture / Unknown 11/09/2024 8:49 PM CDT 11/09/2024 9:04 PM CDT us Dorian Lozano DO MICROBIOLOGY - GENERAL ORDERABL ES Final Result Performing Organization Address [facility] Co de Phone Number [facility] [employer] [facility] CLIA# [id number] [address] [place] [address] * CT ABDOMEN PELVIS W CONTRAST (11/09/2024 8:28 PM CDT) Anatomical Region Laterality Modality Abdomen Computed Tomogra phy 11/09/2024 8:28 PM CDT Impressions 11/09/2024 8:35 PM CDT IMPRESSION: 1. Distal esophageal thickening may represent esophagitis or neoplastic process. Nonemergent endoscopic evaluation is recommended. DICTATION LOCATION: Location 7 - [facility] Narrative 11/09/2024 8:35 PM CDT EXAMINATION: CT ABDOMEN PELVIS W CONTRAST DATE: 11/09/2024 8:28 PM HISTORY: Abdominal pain, acute, nonlocalized; See Reason for Exam TECHNIQUE: CT of the abdomen and pelvis was performed following the uneventful administration of contrast (IOPAMIDOL 76 % INTRAVENOUS SOLUTION (MULTI-DOSE BULK PACK) Given:80 mL) according to standard protocol. The examination was performed with the adjustment of mA according to the patient size and/or the use of Iterative Reconstruction Technique. COMPARISON: No prior study is available for comparison at the time of this dictation. FINDINGS: Lower chest: The lung bases are clear. The heart is not enlarged. Liver: There is no liver surface nodularity. -Focal liver lesions: Other than focal fatty infiltration at the falciform ligament, there is no focal liver lesion. -Vasculature: Biliary: The gallbladder appears normal. There is no biliary duct dilatation. Spleen: Normal. Pancreas: Normal. Adrenals: Normal. Kidneys/: Normal. There is no hydronephrosis. Gastrointestinal: There is thickening of the distal esophagus suggestive of esophagitis, ligaments [employer] a similar appearance and endoscopic evaluation is recommended. There is no bowel wall thickening or dilatation. Vasculature: The aorta is normal in course and caliber without significant atherosclerosis. The aortic branch vessels are normal in course and caliber without significant atherosclerotic calcification. Pelvic structures: The urinary bladder is unremarkable. The visible reproductive structures are normal. Other: There is no free fluid. There is no free air. There is no abdominal lymphadenopathy. No suspicious bone lesion is seen. No acute fracture is identified. Procedure Note Kd Burton MD - 11/09/2024 EXAMINATION: CT ABDOMEN PELVIS W CONTRAST DATE: 11/09/2024 8:28 PM HISTORY: Abdominal pain, acute, nonlocalized; See Reason for Exam TECHNIQUE: CT of the abdomen and pelvis was performed following the uneventful administration of contrast (IOPAMIDOL 76 % INTRAVENOUS SOLUTION (MULTI-DOSE BULK PACK) Given:80 mL) according to standard protocol. The examination was performed with the adjustment of mA according to the patient size and/or the use of Iterative Reconstruction Technique. COMPARISON: No prior study is available for comparison at the time of this dictation. FINDINGS: Lower chest: The lung bases are clear. The heart is not enlarged. Liver: There is no liver surface nodularity. -Focal liver lesions: Other than focal fatty infiltration at the falciform ligament, there is no focal liver lesion. -Vasculature: Biliary: The gallbladder appears normal. There is no biliary duct dilatation. Spleen: Normal. Pancreas: Normal. Adrenals: Normal. Kidneys/: Normal. There is no hydronephrosis. Gastrointestinal: There is thickening of the distal esophagus suggestive of esophagitis, ligaments [employer] a similar appearance and endoscopic evaluation is recommended. There is no bowel wall thickening or dilatation. Vasculature: The aorta is normal in course and caliber without significant atherosclerosis. The aortic branch vessels are normal in course and caliber without significant atherosclerotic calcification. Pelvic structures: The urinary bladder is unremarkable. The visible reproductive structures are normal. Other: There is no free fluid. There is no free air. There is no abdominal lymphadenopathy. No suspicious bone lesion is seen. No acute fracture is identified. IMPRESSION: 1. Distal esophageal thickening may represent esophagitis or neoplastic process. Nonemergent endoscopic evaluation is recommended. DICTATION LOCATION: Location [address] [place] [address] ORDERABLES Final Result * TROPONIN BASELINE, 5TH GEN (11/09/2024 7:21 PM CDT) TROPONIN T, BASELINE 5TH GEN 11 <=15 ng/L 11/09/2024 8:15 PM CDT [facility] Comment:Hemolysis present, r edraw as indicated. Blood Venipuncture / Unknown 11/09/2024 7:21 PM CDT 11/09/2024 7:30 PM CDT Narrative [facility] [employer] [facility] - 11/09/2024 8:15 PM CDT Troponin Detectable but normal range. Dorian Lozano DO CHEMISTRY ORDERABLES Final Resu lt [facility] CLIA# [id number] [place] [address] * Critical Care (11/09/2024 7:02 PM CDT) Narrative Dorian Lozano DO - 11/09/2024 7:02 PM CDT Dorian Lozano DO 11/10/2024 6:59 PM Critical Care Performed by: Dorian Lozano DO Authorized by: Dorian Lozano DO Critical care provider statement: Critical care time (minutes): 35 Critical care time was exclusive of: Separately billable procedures and treating other patients Critical care was necessary to treat or prevent imminent or life-threatening deterioration of the following conditions: 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 failure or 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 and toxidrome Critical care was time spent personally by me on the following activities: Development of treatment plan with patient or surrogate, blood draw for specimens, evaluation of patient's response to treatment, examination of patient, obtaining history from patient or surrogate, ordering and performing treatments and interventions, ordering and review of laboratory studies, ordering and review of radiographic studies, pulse oximetry, re-evaluation of patient's condition and review of old charts Dorian Lozano DO PROCEDURE/MINOR SURGICAL ORDERA BLES Final Result * XR ABDOMEN 1 VW (10/30/2024 8:14 AM CDT) Anatomical Region Laterality Modality Abdomen Computed Radiogr aphy 10/30/2024 8:14 AM CDT Impressions 10/30/2024 8:25 AM CDT IMPRESSION: Within normal limits. DICTATION LOCATION: Location 7 - [facility] Narrative 10/30/2024 8:25 AM CDT ABDOMEN ONE VIEW HISTORY: Pain Alcohol withdrawal syndrome without complication (CMS/HCC); Vomiting without nausea, intractable COMPARISON: No prior studies are available for comparison. FINDINGS: Examination of the abdomen in AP projection reveals that the visualized visceral silhouettes do not appear unusual. No radiopaque calculi are seen over the anticipated renal or ureteral regions. The gallbladder is been removed The visualized gas pattern is within normal limits. INCIDENTAL FINDINGS: None. Result [facility] Mireya Adler MD DIAGNOSTIC IMAGING ORDERABLES E dited Result - Final * KETONES/BETA HYDROXYBUTYRATE (10/30/2024 5:49 AM CDT) BETA HYDROXYBUTYRATE 0.4 <0.5 mmol/L 10/30/2024 6:19 AM CDT [facility] [employer] [facility] Blood Venipuncture / Unknown 10/30/2024 5:49 AM CDT 10/30/2024 5:53 AM CDT Santo Mancini MD CHEMISTRY ORDERABLES Final Resu lt [id number] [place] [address] * C-REACTIVE PROTEIN (10/30/2024 5:49 AM CDT) [facility] CRP <3.0 <5.0 mg/L 10/30/2024 11:20 AM CDT [facility] Blood Venipuncture / Unknown 10/30/2024 5:49 AM CDT 10/30/2024 5:53 AM CDT Leti Carmen MD CHEMISTRY ORDERABLES Fi nal Result [facility] [id number] [place] [address] * VITAMIN B12 LEVEL (10/30/2024 5:49 AM CDT) [facility] VITAMIN B12 321 232 - 1,245 pg/mL 10/30/2024 2:09 PM CDT [facility] Blood Venipuncture / Unknown 10/30/2024 5:49 AM CDT 10/30/2024 5:53 AM CDT Leti Carmen MD CHEMISTRY ORDERABLES Fi nal Result [facility] [id number] [place] [address] * CT ABDOMEN PELVIS WO CONTRAST (02/25/2022 2:06 PM CDT) Anatomical Region Laterality Modality Abdomen Computed Tomogra phy 02/25/2022 2:28 PM CDT Impressions 02/25/2022 2:30 PM CDT IMPRESSION: Nonspecific thickening of the colon is favored to represent distention of colitis. No convincing acute abnormalities evident on noncontrast CT. Narrative 02/25/2022 2:30 PM CDT PROCEDURE/EXAM(S): CT ABDOMEN PELVIS WO CONTRAST TECHNIQUE: CT abdomen/pelvis without intravenous contrast + multiplanar reconstructions + adjustment of mA according to patient size and/or iterative reconstruction technique. CONTRAST: None. PROVIDED CLINICAL HISTORY/INDICATION: Male of 31 years age. Nausea/vomiting. Intractable nausea and vomiting. DICTATION LOCATION: Location [address] [place] [address] COMPARISON STUDIES: 01/20/2019. FINDINGS: Liver: Radiologically unremarkable for age. Biliary system: Cholecystectomy. Spleen: Radiologically unremarkable for age. Pancreas: Radiologically unremarkable for age. Stomach: Radiologically unremarkable for age. Small bowel: Radiologically unremarkable for age. Colon: Nonspecific thickening of the colon could relate to underdistention. Appendix: Radiologically unremarkable for age. Adrenal glands: Radiologically unremarkable for age. Kidneys/Ureters: Radiologically unremarkable for age. Bladder: Radiologically unremarkable for age. Reproductive organs: Radiologically unremarkable for age. Peritoneum/Retroperitoneum: Radiologically unremarkable for age. Vasculature: Radiologically unremarkable for age. Lymph nodes: Radiologically unremarkable for age. Osseous structures: Radiologically unremarkable for age. Body wall soft tissues: Radiologically unremarkable for age. Other visualized structures: Radiologically unremarkable for age. Procedure Note Marcos Armendariz MD - 02/25/2022 PROCEDURE/EXAM(S): CT ABDOMEN PELVIS WO CONTRAST TECHNIQUE: CT abdomen/pelvis without intravenous contrast + multiplanar reconstructions + adjustment of mA according to patient size and/or iterative reconstruction technique. CONTRAST: None. PROVIDED CLINICAL HISTORY/INDICATION: Male of 31 years age. Nausea/vomiting. Intractable nausea and vomiting. DICTATION LOCATION: Location [address] [place] [address] COMPARISON STUDIES: 01/20/2019. FINDINGS: Liver: Radiologically unremarkable for age. Biliary system: Cholecystectomy. Spleen: Radiologically unremarkable for age. Pancreas: Radiologically unremarkable for age. Stomach: Radiologically unremarkable for age. Small bowel: Radiologically unremarkable for age. Colon: Nonspecific thickening of the colon could relate to underdistention. Appendix: Radiologically unremarkable for age. Adrenal glands: Radiologically unremarkable for age. Kidneys/Ureters: Radiologically unremarkable for age. Bladder: Radiologically unremarkable for age. Reproductive organs: Radiologically unremarkable for age. Peritoneum/Retroperitoneum: Radiologically unremarkable for age. Vasculature: Radiologically unremarkable for age. Lymph nodes: Radiologically unremarkable for age. Osseous structures: Radiologically unremarkable for age. Body wall soft tissues: Radiologically unremarkable for age. Other visualized structures: Radiologically unremarkable for age. IMPRESSION: Nonspecific thickening of the colon is favored to represent distention of colitis. No convincing acute abnormalities evident on noncontrast CT. 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
--- OUTSIDE RECORDS SUMMARY | 2025-01-05 18:40 | XMS_ITS | Referral Summary ---
Author Organization [facility] Address [address] [place] [address] Care Team Providers Care Property Management Specialist Name Role Phone Washington Alfaro MD Primary Care Provider [phone] Encounters Date Type Department Care Team Description 12/22/2024 9:29 AM CDT - 12/22/2024 2:16 PM CDT Emergency [facility] Emergency Department [address] [place] [id number] Kd Henderson MD Alcohol withdrawal syndrome without complication (HCC) (Primary Dx) Discharge Disposition: Discharge to home or self care 12/11/2024 2:26 PM CDT - 12/11/2024 5:58 PM CDT Emergency [facility] Emergency Department [address] [place] [phone] Discharge Disposition: Left without being seen from Last 3 Months Allergies Active Allergy Reactions Criticality Noted Date Comments Prochlorperazine Anxiety Low 04/29/2024 Haloperidol Anxiety High 12/11/2024 Promethazine Anxiety Low 04/29/2024 Medications ondansetron (ZOFRAN) 4 mg tablet Take 1 tablet (4 mg total) by mouth every 6 (six) hours 12 tablet Active chlordiazePOXI DE (LIBRIUM) 25 mg capsule Take 1 capsule (25 mg total) by mouth 3 (three) times a day as needed for anxiety for 1 day, THEN 1 capsule (25 mg total) 2 (two) times a day as needed for anxiety for 1 day, THEN 1 capsule (25 mg total) daily for 1 day. 6 capsule 5 Active ondansetron (ZOFRAN) 4 mg tablet Take 1 tablet (4 mg total) by mouth every 6 (six) hours 12 tablet 5 12/24/19 25 Discontinued chlordiazePOXI DE (LIBRIUM) 25 mg capsule Take 1 capsule (25 mg total) by mouth 3 (three) times a day as needed for anxiety for up to 1 day 3 capsule 5 12/23/19 25 Discontinued Active Problems Problem Noted Date Diagnosed Date Alcohol withdrawal delirium 04/29/2024 Alcohol withdrawal syndrome without complication 04/29/2024 Hypokalemia 04/29/2024 Nausea and vomiting 04/29/2024 Hyponatremia 04/29/2024 Alcoholic ketoacidosis 04/29/2024 Hyperbilirubinemia 04/29/2024 Social History Tobacco Use Types Packs/Day Years Used Date Smoking Tobacco: Former Cigarettes Q uit: 07/03/2021 Smokeless Tobacco: Never Alcohol Use Standard Drinks/Week Comments Yes 0 (1 standard drink = 0.6 oz pur e alcohol) Personal Safety Answer Date Recorded Have you ever been in or are you currently in a harmful physical or emotional relationship or is someone making you feel afraid or unsafe? Denies 12/22/2024 Sex and Gender Information Value Date Recorded Sex Assigned at Not on file Legal Sex Male 10:57 PM [employer] J[employer]PER[employer] Gender Identity Not on file Sexual Orientation Not on file Last Filed Vital Signs Vital Sign Reading Time Taken Comments Blood Pressure 121/70 12/22/2024 12:00 PM CDT Pulse 89 12/22/2024 12:00 PM CDT Temperature 37.4 C (99.4 F) 12/22/2024 9:27 AM CDT Respiratory Rate 16 12/22/2024 12:00 PM CDT Oxygen Saturation 97% 12/22/2024 12:00 PM CDT Inhaled Oxygen Concentration - - Weight 93 kg (205 lb) 12/11/2024 2:33 PM CDT Height 193 cm (6' 4) 12/11/2024 2:33 PM CDT Body Mass Index 24.95 12/11/2024 2:33 PM CDT Plan of Treatment Not on file Procedures Procedure Name Priority Date/Time Associated Diagnosis Comments EGFR STAT 12/22/2024 9:50 AM CDT MAGNESIUM STAT 12/22/2024 9:50 AM CDT PHOSPHORUS STAT 12/22/2024 9:50 AM CDT DIFFERENTIAL AUTO STAT 12/22/2024 9:5 0 AM CDT COMPREHENSIVE METABOLIC PANEL STAT 12/22/2024 9:50 AM CDT CBC WITH AUTO DIFFERENTIAL STAT 12/22/2024 9:50 AM CDT EGFR STAT 12/11/2024 3:42 PM CDT DIFFERENTIAL AUTO STAT 12/11/2024 3:4 2 PM CDT COMPREHENSIVE METABOLIC PANEL STAT 12/11/2024 3:42 PM CDT CBC WITH AUTO DIFFERENTIAL STAT 12/11/2024 3:42 PM CDT from Last 3 Months Results * eGFR (12/22/2024 9:50 AM CDT) eGFR 83 >=60 mL/min/1. 73 m2 Comment: Interpretive Data Reference Interval Normal >/= 90 mL/min/1.73m2 Mildly decreased* 60 - 89 mL/min/1.73m2 Mildly to moderately decreased 45 - 59 mL/min/1.73m2 Moderately to severely decreased 30 - 44 mL/min/1.73m2 Severely decreased 15 - 29 mL/min/1.73m2 Kidney Failure < 15 mL/min/1.73m2 *Relative to young adult level Estimated glomerular filtration rate is determined by the 2020 CKD-EPI equation recommended by the National Kidney Foundation (A Unifying Approach to GFR Estimation: Recommendations of the NKF-ASK Task Force on Reassessing the Inclusion of Race in Diagnosing Kidney Disease, JASN 2020). The CKD-EPI equation should not be used for patients with unstable renal function and has not been validated in children and those over 70. Current interpretive data was last reviewed 2021. Blood 12/22/2024 9:50 AM CDT 12/22/2024 10:07 AM CDT Nettie Ascencio MD LAB BLOOD ORDERABLES Fin al Result [facility] Department [place] [address] * Differential, auto (12/22/2024 9:50 AM CDT) Neutrophil abs 5.43 1.50 - 6.50 K/cumm Imm gran abs 0.03 0.00 - 0.10 K/cumm [facility] Lymphocyte abs 1.49 0.80 - 3.30 K/cumm [facility] Monocyte abs 0.51 0.20 - 0.80 K/cumm [facility] Eosinophil abs 0.05 0.00 - 0.50 K/cumm [facility] Basophil abs 0.08 0.00 - 0.10 K/cumm [facility] Neutrophil pct 71.5 % [facility] Comment: Interpretive Data Percent cell count reference ranges are not reported, since discordance with absolute values may lead to misinterpretation of CBC data. Current Interpretive Data was last revised on 2017. Imm gran pct 0.4 % [facility] Comment: Interpretive Data Percent cell count reference ranges are not reported, since discordance with absolute values may lead to misinterpretation of CBC data. Current Interpretive Data was last revised on 2017. Lymphocyte pct 19.6 % [facility] Comment: Interpretive Data Percent cell count reference ranges are not reported, since discordance with absolute values may lead to misinterpretation of CBC data. Current Interpretive Data was last revised on 2017. Monocyte pct 6.7 % [facility] Comment: Interpretive Data Percent cell count reference ranges are not reported, since discordance with absolute values may lead to misinterpretation of CBC data. Current Interpretive Data was last revised on 2017. Eosinophil pct 0.7 % [facility] Comment: Interpretive Data Percent cell count reference ranges are not reported, since discordance with absolute values may lead to misinterpretation of CBC data. Current Interpretive Data was last revised on 2017. Basophil pct 1.1 % [facility] Comment: Interpretive Data Percent cell count reference ranges are not reported, since discordance with absolute values may lead to misinterpretation of CBC data. Current Interpretive Data was last revised on 2017. Blood 12/22/2024 9:50 AM CDT 12/22/2024 10:07 AM CDT us Nettie Ascencio MD LAB BLOOD ORDERABLES Fin al Result Performing Organization Address City/[facility]/ZIP Co de Phone Number [facility] Department [place] [address] * (ABNORMAL) CBC with auto differential (12/22/2024 9:50 AM CDT) WBC 7.59 3.80 - 9.90 K/cumm Hgb 14.3 13.0 - 17.5 g/dL [facility] Hct 40.7 38.9 - 50.3 % [facility] Plt 354 150 - 400 K/cumm [facility] MPV 9.2 9.1 - 12.3 fL [facility] RBC 5.01 4.30 - 5.80 M/cumm [facility] MCV 81.2(L) 81.3 - 96.4 fL [facility] MCH 28.5 27.1 - 33.3 pg [facility] MCHC 35.1 32.3 - 35.7 g/dL [facility] RDW CV 14.3 11.1 - 14.9 % [facility] RDW SD 41.4 35.7 - 48.1 fL [facility] NRBC abs 0.00 0.00 - 0.01 K/cumm [facility] Blood 12/22/2024 9:50 AM CDT 12/22/2024 10:07 AM CDT us Nettie Ascencio MD LAB BLOOD ORDERABLES Fin al Result Performing Organization Address City/[facility]/ZIP Co de Phone Number [facility] [place] [address] * Phosphorus (12/22/2024 9:50 AM CDT) [facility] Phosphorus, pl 2.5 2.3 - 4.5 mg/dL Blood 12/22/2024 9:50 AM CDT 12/22/2024 10:07 AM CDT Nettie Ascencio MD LAB BLOOD ORDERABLES Fin al Result Performing Organization Address [facility] Co de Phone Number [facility] [place] [address] * Magnesium (12/22/2024 9:50 AM CDT) [facility] Magnesium 1.9 1.4 - 2.5 mg/dL Blood 12/22/2024 9:50 AM CDT 12/22/2024 10:07 AM CDT us Nettie Ascencio MD LAB BLOOD ORDERABLES Fin al Result Performing Organization Address [facility] Co de Phone Number [facility] [place] [address] * Comprehensive metabolic panel (12/22/2024 9:50 AM CDT) [facility] Sodium 143 135 - 145 mmol/L Comment:Repeated and Verifie d Potassium, pl 3.8 3.3 - 4.9 mmol/L [facility] Chloride 104 97 - 110 mmol/L [facility] Comment:Repeated and Verifie d CO2 24 22 - 32 mmol/L [facility] Anion gap 14 2 - 15 mmol/L [facility] BUN 9 6 - 25 mg/dL [facility] Creatinine 1.18 0.80 - 1.30 mg/dL [facility] Glucose 94 70 - 199 mg/dL [facility] Comment: Interpretive Data Fasting glucose >/= 126 mg/dl is diagnostic for diabetes. Fasting is defined as no caloric intake for at least 8 hours. Fasting glucose between 100 mg/dl to 125 mg/dl is diagnostic of prediabetes. In a patient with classic symptoms of hyperglycemia or hyperglycemic crisis, a random glucose >/= 200 mg/dl is diagnostic for diabetes. In the absence of unequivocal hyperglycemia, results should be confirmed by repeat testing. The classification and Diagnosis of Diabetes Diabetes Care 2021; 46: S19-S40. Current interpretive data was last revised 2022. Calcium 9.8 8.5 - 10.3 mg/dL [facility] Bilirubin, total 0.5 0.1 - 1.2 mg/dL [facility] Protein, pl 7.5 6.5 - 8.5 g/dL [facility] Albumin 4.5 3.5 - 5.0 g/dL [facility] Alk phos 99 40 - 130 Units/L [facility] ALT 33 7 - 55 Units/L [facility] AST 31 10 - 50 Units/L [facility] Blood 12/22/2024 9:50 AM CDT 12/22/2024 10:07 AM CDT us Nettie Ascencio MD LAB BLOOD ORDERABLES Fin al Result [facility] Department [place] [address] * (ABNORMAL) eGFR (12/11/2024 3:42 PM CDT) eGFR 58(L) >=60 mL/min/1. 73 m2 Comment: Interpretive Data Reference Interval Normal >/= 90 mL/min/1.73m2 Mildly decreased* 60 - 89 mL/min/1.73m2 Mildly to moderately decreased 45 - 59 mL/min/1.73m2 Moderately to severely decreased 30 - 44 mL/min/1.73m2 Severely decreased 15 - 29 mL/min/1.73m2 Kidney Failure < 15 mL/min/1.73m2 *Relative to young adult level Estimated glomerular filtration rate is determined by the 2020 CKD-EPI equation recommended by the National Kidney Foundation (A Unifying Approach to GFR Estimation: Recommendations of the NKF-ASK Task Force on Reassessing the Inclusion of Race in Diagnosing Kidney Disease, JASN 2020). The CKD-EPI equation should not be used for patients with unstable renal function and has not been validated in children and those over 70. Current interpretive data was last reviewed 2021. Blood 12/11/2024 3:42 PM CDT 12/11/2024 4:04 PM CDT us [place] MD LAB BLOOD ORDERABLES Gaby aguilar Result [facility] Department [place] [address] * (ABNORMAL) Differential, auto (12/11/2024 3:42 PM CDT) Neutrophil abs 8.82(H) 1.50 - 6.50 K/cumm Imm gran abs 0.03 0.00 - 0.10 K/cumm [facility] Lymphocyte abs 2.32 0.80 - 3.30 K/cumm [facility] Monocyte abs 0.75 0.20 - 0.80 K/cumm [facility] Eosinophil abs 0.06 0.00 - 0.50 K/cumm [facility] Basophil abs 0.04 0.00 - 0.10 K/cumm [facility] Neutrophil pct 73.5 % [facility] Comment: Interpretive Data Percent cell count reference ranges are not reported, since discordance with absolute values may lead to misinterpretation of CBC data. Current Interpretive Data was last revised on 2017. Imm gran pct 0.2 % [facility] Comment: Interpretive Data Percent cell count reference ranges are not reported, since discordance with absolute values may lead to misinterpretation of CBC data. Current Interpretive Data was last revised on 2017. Lymphocyte pct 19.3 % [facility] Comment: Interpretive Data Percent cell count reference ranges are not reported, since discordance with absolute values may lead to misinterpretation of CBC data. Current Interpretive Data was last revised on 2017. Monocyte pct 6.2 % [facility] Comment: Interpretive Data Percent cell count reference ranges are not reported, since discordance with absolute values may lead to misinterpretation of CBC data. Current Interpretive Data was last revised on 2017. Eosinophil pct 0.5 % [facility] Comment: Interpretive Data Percent cell count reference ranges are not reported, since discordance with absolute values may lead to misinterpretation of CBC data. Current Interpretive Data was last revised on 2017. Basophil pct 0.3 % [facility] Comment: Interpretive Data Percent cell count reference ranges are not reported, since discordance with absolute values may lead to misinterpretation of CBC data. Current Interpretive Data was last revised on 2017. Blood 12/11/2024 3:42 PM CDT 12/11/2024 4:05 PM CDT [place] MD LAB BLOOD ORDERABLES Gaby aguilar Result [facility] Department [place] [address] * (ABNORMAL) CBC with auto differential (12/11/2024 3:42 PM CDT) WBC 12.02(H) 3.80 - 9.90 K/cumm Hgb 16.1 13.0 - 17.5 g/dL [facility] Hct 44.7 38.9 - 50.3 % [facility] Plt 312 150 - 400 K/cumm [facility] MPV 9.3 9.1 - 12.3 fL [facility] RBC 5.63 4.30 - 5.80 M/cumm [facility] MCV 79.4(L) 81.3 - 96.4 fL [facility] MCH 28.6 27.1 - 33.3 pg [facility] MCHC 36.0(H) 32.3 - 35.7 g/dL [facility] RDW CV 14.4 11.1 - 14.9 % [facility] RDW SD 40.7 35.7 - 48.1 fL [facility] NRBC abs 0.00 0.00 - 0.01 K/cumm [facility] Blood 12/11/2024 3:42 PM CDT 12/11/2024 4:05 PM CDT [place] MD LAB BLOOD ORDERABLES Gaby aguilar Result [facility] Department [place] [address] * (ABNORMAL) Comprehensive metabolic panel (12/11/2024 3:42 PM CDT) Sodium 130(L) 135 - 145 mmol/L Potassium, pl 3.5 3.3 - 4.9 mmol/L [facility] Chloride 90(L) 97 - 110 mmol/L [facility] CO2 20(L) 22 - 32 mmol/L [facility] Anion gap 20(H) 2 - 15 mmol/L [facility] BUN 18 6 - 25 mg/dL [facility] Creatinine 1.58(H) 0.80 - 1.30 mg/dL [facility] Glucose 97 70 - 199 mg/dL [facility] Comment: Interpretive Data Fasting glucose >/= 126 mg/dl is diagnostic for diabetes. Fasting is defined as no caloric intake for at least 8 hours. Fasting glucose between 100 mg/dl to 125 mg/dl is diagnostic of prediabetes. In a patient with classic symptoms of hyperglycemia or hyperglycemic crisis, a random glucose >/= 200 mg/dl is diagnostic for diabetes. In the absence of unequivocal hyperglycemia, results should be confirmed by repeat testing. The classification and Diagnosis of Diabetes Diabetes Care 2021; 46: S19-S40. Current interpretive data was last revised 2022. Calcium 9.4 8.5 - 10.3 mg/dL [facility] Bilirubin, total 1.4(H) 0.1 - 1.2 mg/dL [facility] Protein, pl 8.2 6.5 - 8.5 g/dL [facility] Albumin 4.7 3.5 - 5.0 g/dL [facility] Alk phos 110 40 - 130 Units/L [facility] ALT 16 7 - 55 Units/L [facility] AST 29 10 - 50 Units/L [facility] Blood 12/11/2024 3:42 PM CDT 12/11/2024 4:04 PM CDT [place] MD LAB BLOOD ORDERABLES Gaby jeff Result Performing Organization Address City/State/[facility] Co de Phone Number [facility] Department [place] [address] from Last 3 Months Insurance [facility] Advance Directives For more information, please contact: [phone] * Full Code (Latest Code Status on File) Date Activated Date Inactivated Comments 04/29/2024 6:16 PM 04/30/2024 10:54 PM Care Teams Property Management Specialist Relationship Specialty Start Date End Date Washington Alfaro MD PCP - General 12/25/16
--- OUTSIDE RECORDS SUMMARY | 2025-01-05 18:40 | XMS_ITS | Clinical Summary ---
Author Organization [facility] Address [address] [place] [address] Care Team Providers Care Case Finishing Machine Adjuster Name Role Phone Washington Alfaro MD Primary Care Provider [phone] Allergies Active Allergy Reactions Criticality Noted Date Comments Prochlorperazine Anxiety Low 04/29/2024 Haloperidol Anxiety High 12/11/2024 Promethazine Anxiety Low 04/29/2024 Medications ondansetron (ZOFRAN) 4 mg tablet Take 1 tablet (4 mg total) by mouth every 6 (six) hours 12 tablet 5 Active chlordiazePOXI DE (LIBRIUM) 25 mg capsule [...] Hyponatremia 04/29/2024 Alcoholic ketoacidosis 04/29/2024 Hyperbilirubinemia 04/29/2024 Encounters Date Type Department Care Team Description 12/22/2024 9:29 AM CDT - 12/22/2024 2:16 PM CDT [facility] Emergency Department [address] [place] [address] Kd Henderson MD Alcohol withdrawal syndrome without complication (HCC) (Primary Dx) Discharge Disposition: Discharge to home or self care 12/11/2024 2:26 PM CDT - 12/11/2024 5:58 PM CDT [facility] Emergency Department [address] [place] [address] Discharge Disposition: Left without being seen from Last 3 Months Surgical History Surgery Date Site/Laterality Comments CHOLECYSTECTOMY Medical History Medical History Date Comments Alcohol abuse Clostridium difficile diarrhea Cannabis hyperemesis syndrom e concurrent with and due to cannabis abuse (HCC) Family History Medical History Relation Name Comments No Known Problems Father No Known Problems Maternal Grandfather No Known Problems Maternal Grandmother No Known Problems Mother No Known Problems Paternal Grandfather No Known Problems Paternal Grandmother Heart disease Neg Hx Relation Name Status Comments Father Maternal Grandfather Maternal Grandmother Mother Paternal Grandfather Paternal Grandmother Social History Tobacco [...] on file Legal 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 Gender Identity Not on file Sexual Orientation Not on file Obstetrics History Last Filed Vital Signs Vital Sign Reading [...] 12/11/2024 2:33 PM CDT Plan of Treatment Health Maintenance Due Date Last Done Comments Depression Screening 1990 Hepatitis C Screening 1990 DTaP/Tdap/Td Vaccine (2 - Tdap) 2001 12/29/1995 Varicella Vaccines (1 of 2 - 13+ 2-dose series) 09/05/2003 Hepatitis B Screening 2008 Regular Well Visit/Exam 18-64 2008 Pneumococcal vaccine <65 (1 of 2 - PCV) 2009 Zoster Vaccine (1 of 2) 2009 Covid-19 Vaccine (2 - Modern a risk series) 08/06/2021 07/09/2021 Influenza Vaccine (Season Ended) 2025 04/04/2022, 08/07/2020, 09/05/2013 HPV Vaccines Aged Out No longer eligi [...] MD LAB BLOOD ORDERABLES Fin al Result [facility] [place] [address] * Differential, auto (12/22/2024 9:50 AM CDT) Neutrophil abs 5.43 1.50 - 6.50 K/cumm Imm gran abs 0.03 0.00 - 0.10 K/cumm [facility] Lymphocyte abs 1.49 0.80 - 3.30 K/cumm [facility] Monocyte abs 0.51 0.20 - 0.80 K/cumm [facility] Eosinophil abs 0.05 0.00 - 0.50 K/cumm [facility] Basophil abs 0.08 0.00 - 0.10 K/cumm [facility] Neutrophil pct 71.5 % [facility] Comment: Interpretive Data Percent cell count reference ranges are not reported, since discordance with absolute values may lead to misinterpretation of CBC data. Current Interpretive Data was last revised on 2017. Imm gran pct 0.4 % [facility] Comment: Interpretive Data Percent cell count reference ranges are not reported, since discordance with absolute values may lead to misinterpretation of CBC data. Current Interpretive Data was last revised on 2017. Lymphocyte pct 19.6 % [facility] Comment: Interpretive Data Percent cell count reference ranges are not reported, since discordance with absolute values may lead to misinterpretation of CBC data. Current Interpretive Data was last revised on 2017. Monocyte pct 6.7 % [facility] Comment: Interpretive Data Percent cell count reference ranges are not reported, since discordance with absolute values may lead to misinterpretation of CBC data. Current Interpretive Data was last revised on 2017. Eosinophil pct 0.7 % [facility] Comment: Interpretive Data Percent cell count reference ranges are not reported, since discordance with absolute values may lead to misinterpretation of CBC data. Current Interpretive Data was last revised on 2017. Basophil pct 1.1 % [facility] Comment: Interpretive Data Percent cell count reference ranges are not reported, since discordance with absolute values may lead to misinterpretation of CBC data. Current Interpretive Data was last revised on 2017. Blood 12/22/2024 9:50 AM CDT 12/22/2024 10:07 AM CDT us Nettie Ascencio MD LAB BLOOD ORDERABLES Fin al Result [facility] Department [place] [address] * (ABNORMAL) CBC with auto differential (12/22/2024 9:50 AM CDT) [facility] WBC 7.59 3.80 - 9.90 K/cumm Hgb 14.3 13.0 - 17.5 g/dL [facility] Hct 40.7 38.9 - 50.3 % [facility] Plt 354 150 - 400 K/cumm [facility] MPV 9.2 9.1 - 12.3 fL [facility] RBC 5.01 4.30 - 5.80 M/cumm [facility] MCV 81.2(L) 81.3 - 96.4 fL [facility] MCH 28.5 27.1 - 33.3 pg [facility] MCHC 35.1 32.3 - 35.7 g/dL [facility] RDW CV 14.3 11.1 - 14.9 % [facility] RDW SD 41.4 35.7 - 48.1 fL [facility] NRBC abs 0.00 0.00 - 0.01 K/cumm [facility] Blood 12/22/2024 9:50 AM CDT 12/22/2024 10:07 AM CDT us Nettie Ascencio MD LAB BLOOD ORDERABLES Fin al Result Performing Organization Address [facility] Co de Phone Number [facility] Department [place] [email or web address] [address] * Phosphorus (12/22/2024 9:50 AM CDT) [facility] Phosphorus, pl 2.5 2.3 - 4.5 mg/dL Blood 12/22/2024 9:50 AM CDT 12/22/2024 10:07 AM CDT us Nettie Ascencio MD LAB BLOOD ORDERABLES Fin al Result [facility] [place] [address] * Magnesium (12/22/2024 9:50 AM CDT) Magnesium 1.9 1.4 - 2.5 mg/dL Blood 12/22/2024 9:50 AM CDT 12/22/2024 10:07 AM CDT Nettie Ascencio MD LAB BLOOD ORDERABLES Fin al Result [facility] Department [place] [address] * Comprehensive metabolic panel (12/22/2024 9:50 AM CDT) Sodium 143 135 - 145 mmol/L Comment:Repeated and Verifie d Potassium, pl 3.8 3.3 - 4.9 mmol/L [facility] Chloride 104 97 - 110 mmol/L [facility] Comment:Repeated and Verifie d CO2 24 22 - 32 mmol/L [facility] Anion gap 14 2 - 15 mmol/L [facility] BUN 9 6 - 25 mg/dL [facility] Creatinine 1.18 0.80 - 1.30 mg/dL [facility] Glucose 94 70 - 199 mg/dL [facility] Comment: Interpretive Data Fasting glucose >/= [...] classification and Diagnosis of Diabetes Diabetes Care 202; 46: S19-S40. Current interpretive data was last revised 2022. Calcium 9.8 8.5 - 10.3 mg/dL [facility] Bilirubin, total 0.5 0.1 - 1.2 mg/dL [facility] Protein, pl 7.5 6.5 - 8.5 g/dL [facility] Albumin 4.5 3.5 - 5.0 g/dL [facility] Alk phos 99 40 - 130 Units/L [facility] ALT 33 7 - 55 Units/L [facility] AST 31 10 - 50 Units/L [facility] Blood 12/22/2024 9:50 AM CDT 12/22/2024 10:07 AM CDT Nettie Ascencio MD LAB BLOOD ORDERABLES Fin al Result Performing Organization Address [facility] Co de Phone Number [facility] [place] [address] * (ABNORMAL) eGFR (12/11/2024 3:42 PM CDT) [...] Pearl Park MD LAB BLOOD ORDERABLES Gaby l Result Performing Organization Address [facility] Co de Phone Number [facility] Department [place] [address] * (ABNORMAL) Differential, auto (12/11/2024 3:42 PM CDT) Neutrophil abs 8.82(H) 1.50 - 6.50 K/cumm Imm gran abs 0.03 0.00 - 0.10 K/cumm [facility] Lymphocyte abs 2.32 0.80 - 3.30 K/cumm [facility] Monocyte abs 0.75 0.20 - 0.80 K/cumm [facility] Eosinophil abs 0.06 0.00 - 0.50 K/cumm [facility] Basophil abs 0.04 0.00 - 0.10 K/cumm [facility] Neutrophil pct 73.5 % [facility] Comment: Interpretive Data Percent cell count reference ranges are not reported, since discordance with absolute values may lead to misinterpretation of CBC data. Current Interpretive Data was last revised on 2017. Imm gran pct 0.2 % [facility] Comment: Interpretive Data Percent cell count reference ranges are not reported, since discordance with absolute values may lead to misinterpretation of CBC data. Current Interpretive Data was last revised on 2017. Lymphocyte pct 19.3 % [facility] Comment: Interpretive Data Percent cell count reference ranges are not reported, since discordance with absolute values may lead to misinterpretation of CBC data. Current Interpretive Data was last revised on 2017. Monocyte pct 6.2 % [facility] Comment: Interpretive Data Percent cell count reference ranges are not reported, since discordance with absolute values may lead to misinterpretation of CBC data. Current Interpretive Data was last revised on 2017. Eosinophil pct 0.5 % [facility] Comment: Interpretive Data Percent cell count reference ranges are not reported, since discordance with absolute values may lead to misinterpretation of CBC data. Current Interpretive Data was last revised on 2017. Basophil pct 0.3 % [facility] Comment: Interpretive Data Percent cell count reference ranges are not reported, since discordance with absolute values may lead to misinterpretation of CBC data. Current Interpretive Data was last revised on 2017. Blood 12/11/2024 3:42 PM CDT 12/11/2024 4:05 PM CDT Pearl Park MD LAB BLOOD ORDERABLES Gaby l Result Performing Organization Address [facility] de Phone Number [facility] Department [place] [address] * (ABNORMAL) CBC with auto differential (12/11/2024 3:42 PM CDT) [facility] WBC 12.02(H) 3.80 - 9.90 K/cumm Hgb 16.1 13.0 - 17.5 g/dL [facility] Hct 44.7 38.9 - 50.3 % [facility] Plt 312 150 - 400 K/cumm [facility] MPV 9.3 9.1 - 12.3 fL [facility] RBC 5.63 4.30 - 5.80 M/cumm [facility] MCV 79.4(L) 81.3 - 96.4 fL [facility] MCH 28.6 27.1 - 33.3 pg [facility] MCHC 36.0(H) 32.3 - 35.7 g/dL [facility] RDW CV 14.4 11.1 - 14.9 % [facility] RDW SD 40.7 35.7 - 48.1 fL [facility] NRBC abs 0.00 0.00 - 0.01 K/cumm [facility] Blood 12/11/2024 3:42 PM CDT 12/11/2024 4:05 PM CDT Pearl Park MD LAB BLOOD ORDERABLES Gaby l Result Performing Organization Address [facility] Co de Phone Number [facility] Department [place] [address] * (ABNORMAL) Comprehensive metabolic panel (12/11/2024 3:42 PM CDT) [facility] Sodium 130(L) 135 - 145 mmol/L Potassium, pl 3.5 3.3 - 4.9 mmol/L [facility] Chloride 90(L) 97 - 110 mmol/L [facility] CO2 20(L) 22 - 32 mmol/L [facility] Anion gap 20(H) 2 - 15 mmol/L [facility] BUN 18 6 - 25 mg/dL [facility] Creatinine 1.58(H) 0.80 - 1.30 mg/dL [facility] Glucose 97 70 - 199 mg/dL [facility] Comment: Interpretive Data Fasting glucose >/= [...] classification and Diagnosis of Diabetes Diabetes Care 202; 46: S19-S40. Current interpretive data was last revised 2022. Calcium 9.4 8.5 - 10.3 mg/dL [facility] Bilirubin, total 1.4(H) 0.1 - 1.2 mg/dL [facility] Protein, pl 8.2 6.5 - 8.5 g/dL [facility] Albumin 4.7 3.5 - 5.0 g/dL [facility] Alk phos 110 40 - 130 Units/L [facility] ALT 16 7 - 55 Units/L [facility] AST 29 10 - 50 Units/L [facility] Blood 12/11/2024 3:42 PM CDT 12/11/2024 4:04 PM CDT Pearl Park MD LAB BLOOD ORDERABLES Gaby aguilar Result [facility] [place] [address] from Last 3 Months Insurance [facility] Advance Directives For more information, please contact: [phone] * Full Code (Latest Code Status on File) Date Activated Date Inactivated Comments 04/29/2024 6:16 PM 04/30/2024 10:54 PM Care Teams Case Finishing Machine Adjuster Relationship Specialty Start Date End Date Washington Alfaro MD PCP - General 12/25/16
--- OUTSIDE RECORDS SUMMARY | 2025-01-05 18:40 | XMS_ITS | Encounter Summary ---
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 Historical Provider Final Res ult documented in this encounter Visit Diagnoses Not on filedocumented in this encounter Additional Health Concerns Infection Onset Date Last Indicated Resolved Time COVID: Suspected 07/24/2021 07/24/2021 07/24/2021 11:20 AM [employer]IC TE[employer]ER COVID19 07/24/2021 07/24/2021 08/03/2021 3:05 AM L[employer] MUSIC TEACHER documented as of this encounter Care Teams Smokehouse Worker Relationship Specialty Start Date End Date Washington Alfaro MD PCP - General 12/25/16 documented as of this encounter
--- OUTSIDE RECORDS SUMMARY | 2025-01-05 18:40 | XMS_ITS | Encounter Summary ---
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 Historical Provider Final Res ult documented in this encounter Visit Diagnoses Not on filedocumented in this encounter Additional Health Concerns Infection Onset Date Last Indicated Resolved Time COVID: Suspected 07/24/2021 07/24/2021 07/24/2021 11:20 AM NON DESTRUCTIVE TESTING TECHNICIAN COVID19 07/24/2021 07/24/2021 08/03/2021 3:05 AM NON DESTRUCTIVE TESTING TECHNICIAN documented as of this encounter Care Teams Certified Meeting Professional Relationship Specialty Start Date End Date Washington Alfaro MD PCP - General 12/25/16 documented as of this encounter
--- OUTSIDE RECORDS SUMMARY | 2025-01-05 18:40 | XMS_ITS | Clinical Summary ---
Author Organization [facility] Address [address] [place] [address] Phone Care Team Providers Care Associate Designer Name Role Phone Washington Alfaro MD Primary Care Provider Unavailabl e Allergies No known active allergies Medications PARoxetine (PAXIL) 20 MG Tablet Take 1 Tab by mouth daily. 30 Tab 02/18/2017 Active ondansetron (ZOFRAN) 4 MG Tablet Take 1 Tab by mouth every 8 hours as needed for Nausea. 10 Tab 06/13/2017 Active Active Problems Problem Noted Date Diagnosed Date Vomiting 02/17/2017 Hypomagnesemia 02/17/2017 Hypokalemia 02/17/2017 Leukocytosis 02/17/2017 Social History Tobacco Use Types Packs/Day Years Used Date Smoking Tobacco: Some Days Cigarettes Smokeless Tobacco: Never Alcohol Use Standard Drinks/Week Comments Yes 0 (1 standard drink = 0.6 oz pur e alcohol) Rarely Sex and Gender Information Value Date Recorded Sex Assigned at Not on file Legal Sex Male 2:29 AM CDT Gender Identity Not on file Sexual Orientation Not on file Last Filed Vital Signs Vital Sign Reading Time Taken Comments Blood Pressure 109/61 06/13/2017 4:30 PM UTILITY WORKER [employer] Pulse 69 06/13/2017 4:30 PM UTILITY WORKER [employer] Temperature 36.9 C (98.4 F) 06/13/2017 2:05 PM UTILITY WORKER [employer] Respiratory Rate 24 05/09/2017 6:07 PM UTILITY WORKER [employer] Oxygen Saturation 99% 06/13/2017 4:30 PM UTILITY WORKER [employer] Inhaled Oxygen Concentration - - Weight 79.4 kg (175 lb) 06/13/2017 2:05 PM UTILITY WORKER [employer] Height 193 cm (6' 4) 06/13/2017 2:05 PM UTILITY WORKER [employer] Body Mass Index 21.3 06/13/2017 2:05 PM UTILITY WORKER [employer] Plan of Treatment Health Maintenance Due Date Last Done Comments Hepatitis C Virus (HCV) Screening 1990 TdaP Immunization 1990 Human Papillomavirus (HPV) Immunization (1 - Male 3-dose series) 2005 Hepatitis B Immunization (1 of 3 - 19+ 3-dose series) 2009 SARS-COV-2 Immunization (1 - season) 2024 Influenza Immunization (Seas on Ended) 2025 Respiratory Syncytial Virus (RSV) Immunization (Adult) (1 - 1-dose 75+ series) 2065 Meningococcal Immunization (ACWY) Aged Out No longer eligible based on patient's age to complete this topic Pneumococcal Immunization Combined Aged Out No longer eligible based on patient's age to complete this topic Rotavirus Immunization Aged Out No lo nger eligible based on patient's age to complete [place] [address] [place] [address] MEDICAID [employer] Advance Directives * Full Code (Latest Code Status on File) Date Activated Date Inactivated Comments 02/17/2017 8:14 AM 02/18/2017 6:00 PM CPR-Full Yadiel atment: FULL ARREST: Attempt Resuscitation/CPR wit intubation and mechanical ventilation. PRE-ARREST: Use entire range of life support measures to stabilize the patient. Care Teams Associate Designer Relationship Specialty Start Date End Date Washington Alfaro MD PCP - General Family Medicine 02/17/17
[2025-01-05 18:47] VITALS: BP 115/68; PULSE 125; RESP 20; TEMP 36.3; O2SAT 100
--- NOTE | 2025-01-05 19:00 | ED_ITS ---
HPI - Alcohol General Chief Complaint: Alcohol Stated Complaint: N/V ?ETOH WITHDRAWALS Time Seen by Provider: 01/05/25 18:59 Source: patient Mode of arrival: ambulatory Limitations: no limitations History of Present Illness HPI narrative: 34 YEARS OLD WHITE MALE CAME TO THE ED BY PRIVATE CAR FROM HOME COMPLAINING OF NAUSEA, VOMITING, HEADACHE. PATIENT IS TELLING ME THAT HE HAVE ALCOHOL WITHDRAWAL RIGHT NOW. LAST DRINK WAS AROUND NOON TODAY, PATIENT BEEN DRINKING 15-20 SHOTS OF VODKA DAILY, HISTORY OF REHAB IN THE PAST, PATIENT HAS TELL ME CANNOT AFFORD TO GO TO REHAB BECAUSE HE HAVE NO MONEY AND NO INSURANCE AND WOULD LIKE TO BE TRANSFERRED TO [facility]MMEDIATELY. HE DENIES ANY SUICIDAL OR HOMICIDAL IDEATION. Related Data Allergies Allergy/AdvReac Type Severity Reaction Status Date / Time haloperidol (From Haldol) Allergy Anxiety Verified 01/05/25 18:49 metoclopramide (From Reglan) Allergy Anxiety Verified 01/05/25 18:49 Review of Systems 2 Review of Systems: All systems reviewed & are unremarkable except as noted in HPI and below Exam 2 Narrative: GENERAL APPEARANCE: WELL-DEVELOPED, WELL-NOURISHED SKIN: NORMAL COLOR, DIAPHORETIC HEAD: NORMOCEPHALIC, NONTRAUMATIC EYES: CLEAR CONJUNCTIVA ENT: OROPHARYNX NORMAL, EARS NORMAL, NOSE NORMAL NECK: SUPPLE, NONTENDER CHEST AND RESPIRATORY: AIRWAY PATENT, NO RESPIRATORY DISTRESS, NO ACCESSORY MUSCLE USE HEART: REGULAR RATE/RHYTHM ABDOMEN: SOFT, NONTENDER, NO ORGANOMEGALY, QUIET BOWEL SOUNDS MUSCULOSKELETAL: NORMAL RANGE OF MOTION, NONTENDER BACK NEUROLOGIC: ALERT AND ORIENTED ?3, UTILITIES AND MAINTENANCE SUPERVISOR IS NORMAL TESTED, NO GROSS MOTOR DEFICIT Course Vital Signs Vital signs: Vital Signs Temperature 36.3 C L 01/05/25 18:47 Pulse Rate 125 H 01/05/25 18:47 Respiratory Rate 20 01/05/25 18:47 Blood Pressure 115/68 01/05/25 18:47 Pulse Oximetry 100 01/05/25 18:47 Oxygen Delivery Room Air 01/05/25 18:47 Temperature 36.3 C L 01/05/25 18:47 Pulse Rate 125 H 01/05/25 18:47 Respiratory Rate 20 01/05/25 18:47 Blood Pressure 115/68 01/05/25 18:47 Pulse Oximetry 100 01/05/25 18:47 Oxygen Delivery Room Air 01/05/25 18:47 MDM - Alcohol MDM Narrative Medical decision making narrative: Patient decided to quit drinking alcohol at noon today, can not afford to go to rehab or buying alcohol, homeless. Last alcohol intake around noon today. Vital signs showing heart rate of 125 otherwise within normal limit Physical examination showing anxious patient, tachycardia Differential diagnosis include impending alcohol withdrawal, alcoholic, electrolyte imbalance, dehydration Blood workup today includes CBC, CMP, magnesium, alcohol level, lipase, PT showed WBC 11.8, PT 12.6, bicarb 17, anion gap 22, BUN 7, creatinine 1.43, alcohol level 84. In the ED patient received 1 L of banana bag, 1 L of normal saline, 8 mg Zofran, 2 mg of Ativan with remarkable improvement. Diagnosis alcoholic ketoacidosis, PRABHU, homeless Admit to hospitalist Differential Diagnosis Differential diagnosis: Likely other (As above) Medical Records Attestation: I reviewed the patient's medical records. Lab Data Attestation: I reviewed the patient's lab results. 01/05/25 19:23 01/05/25 19:23 Labs: Lab Results 01/05/25 Range/Units 19:23 WBC 11.8 H (4.5-10.0) K/mm3 RBC 5.63 (4.6-6.20) M/mm3 Hgb 16.0 (14.0-18.0) g/dL Hct 46.0 (42.0-52.0) % MCV 81.7 (80-100) fl MCH 28.4 (26-34) pg MCHC 34.8 (32-36) g/dl RDW 13.6 (11.5-14.5) % Plt Count 375 (150-375) k/mm3 MPV 9.0 (7.4-10.4) fl Immature Gran % (Auto) 0.5 (0-0.5) % Neut % (Auto) 74.8 H (45.5-73.1) % Lymph % (Auto) 17.1 L (18.3-44.2) % [place] % (Auto) 6.6 (2.6-8.5) % Eos % (Auto) 0.5 (0-4.4) % Baso % (Auto) 0.5 (0.2-1.2) % Lymph # (Auto) 2.02 (0.9-3.2) K/mm3 [place] # (Auto) 0.8 H (0.1-0.6) K/mm3 Eos # (Auto) 0.1 (0-0.3) K/mm3 Baso # (Auto) 0.1 (0.0-0.1) K/mm3 Abs Immat Gran (auto) 0.06 H (0.00-0.031) K/mm3 Absolute Neuts (auto) 8.8 H (1.3-6.7) K/mm3 Absolute Nucleated RBC 0.000 (0.0-0.012) K/mm3 Nucleated RBC % 0.0 (0.0-0.2) % PT 12.6 (11.1-14.7) Seconds INR 0.9 APTT 27.4 (22.3-36.8) Seconds Sodium 138 (137-145) mmol/L Potassium 3.8 (3.4-5.0) mmol/L Chloride 99 (98-107) mmol/L Carbon Dioxide 17 L (22-30) mmol/L Anion Gap 22 H (4-12) mmol/L BUN 7 L (9-20) mg/dL Creatinine 1.43 H (0.7-1.3) mg/dL Estim Creat Clear Calc Not Reportable Estimated GFR 57 L (59 - ) Glucose 100 (65-110) mg/dL Calcium 10.1 (8.4-10.2) mg/dL Total Bilirubin 0.6 (0.2-1.3) mg/dL AST 39 (17-59) U/L ALT 29 (6-50) U/L Alkaline Phosphatase 97 (38-126) U/L Total Protein 8.5 H (6.3-8.2) g/dL Albumin 5.1 (3.5-5.1) g/dL Lipase 80 (23-300) U/L Ethyl Alcohol 84 (<10) mg/dL Critical Care Time Critical Care Time Critical Care Time: No Discharge Plan Discharge Clinical Impression: PRABHU (acute kidney injury), Homeless, Alcoholic ketoacidosis Patient Disposition: Still a Patient Condition: Stable Additional Instructions: Admit to hospitalist Patient Language: Chinese Follow-up/Referrals: PHYSICIAN,JAVA PORT[employer] DEVELOPER [Primary Care Provider] -
--- OUTSIDE RECORDS SUMMARY | 2025-01-05 19:14 | XMS_ITS | Clinical Summary ---
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 ([facility]) Discharge Disposition: Home or Self Care 12/26/2024 [...] - 11/24/2024 2:17 PM CDT Hospital Encounter [address] [address] Dorian Lozano DO Backer, Neil, MD Manny, Edvin Acevedo MD Intractable nausea and vomiting Discharge Disposition: Home or Self Care 11/10/2024 Travel 11/09/2024 7:02 PM CDT - 11/12/2024 2:41 PM CDT Hospital Encounter [address] [address] [place] [address] Dorian Lozano DO Mustari, Akhi, MD Backer, Neil, MD Alcohol withdrawal syndrome without complication ([facility]/HCC) Discharge Disposition: Home or Self Care 10/31/2024 External Device Data STL ABSTRACTION Provider, Abstract 10/31/2024 External Device Data STL ABSTRACTION Provider, Abstract 10/31/2024 External Device Data STL ABSTRACTION Provider, Abstract 10/31/2024 Patient Outreach [facility] [address] [place] [address] [facility] (Establish PCP) 10/30/2024 4:58 AM CDT - 10/31/2024 7:00 PM CDT Hospital Encounter [facility] [address] [place] [address] Santo Mancini MD Kasireddy, Ravichandra, MD Vitamin B12 deficiency (non anemic) Discharge Disposition: Home or Self Care 10/26/2024 8:53 AM CDT - 10/26/2024 3:25 PM CDT Emergency [facility] Emergency Department [address] [place] [address] Alondra Chawla MD Nausea and [...] - 145 mmol/L 01/05/2025 6:27 AM T [facility] - [facility] POTASSIUM 3.4(L) 3.5 - 5.0 mmol/L 01/05/2025 6:27 AM T [facility] CHLORIDE 103 98 - 107 mmol/L 01/05/2025 6:27 AM T [facility] - [facility] CO2 21(L) 22 - 29 mmol/L 01/05/2025 6:27 AM T [facility] - . [facility] CALCIUM 9.0 8.6 - 10.2 mg/dL 01/05/2025 6:27 AM T [facility] - [facility] BUN 7 6 - 20 mg/dL 01/05/2025 6:27 AM T [facility] - [facility] CREATININE 0.93 0.67 - 1.17 mg/dL 01/05/2025 6:27 AM T [facility] - [facility] GLUCOSE 88 74 - 99 mg/dL 01/05/2025 6:27 AM T [facility] - . [facility] TOTAL PROTEIN 6.4(L) 6.7 - 8.6 g/dL 01/05/2025 6:27 AM T [facility] - [facility] ALBUMIN 3.9 3.5 - 5.2 g/dL 01/05/2025 6:27 AM T [facility] - [facility] BILIRUBIN TOTAL 0.3 0.0 - 1.2 mg/dL 01/05/2025 6:27 AM T [facility] - [facility] ALKALINE PHOSPHATASE 102 40 - 129 U/L 01/05/2025 6:27 AM T [facility] - [facility] AST 18 <41 U/L 01/05/2025 6:27 AM CDT [facility] - . [facility] ALT 19 <42 U/L 01/05/2025 6:27 AM T [facility] - [facility] GFR >60 >=60 mL/min/1.7 3 sq meter 01/05/2025 6:27 AM CDT [facility] Comment:eGFR calculated with 2020 CKD-EPI equation. Vegetarian diet, extremely high or low muscle mass, and may affect results. Cystatin C with Glomerular Filtration Rate is a suitable alternative for these patients. ANION GAP 13 8 - 16 mmol/L 01/05/2025 6:27 AM CDT [facility] Blood Venipuncture / Unknown 01/05/2025 5:27 AM CDT 01/05/2025 5:36 AM CDT Narrative [facility] - 01/05/2025 6:27 AM CDT Samples containing indocyanine green cause interferences on Total and/or Direct Bilirubin and must not be measured. us Kaylyn Sousa NP CHEMISTRY ORDERABLES Final Resul t [facility]# [id number] [address] [place] [address] * EKG 12-LEAD (01/04/2025 3:46 AM CDT) Only the most recent of6 resultswithin the time period is included. 01/04/2025 3:46 AM CDT Narrative INTERFACE SYSTEM - 01/04/2025 1:03 PM CDT [facility] [address] [place] [address] Test Date: 2025-01-04 Pat Name: YANETH PHILLIPS Department: 58 Room: [address] [place] [address] Gender: Male Hand Plate Stacker: [id number] : 1990 Requested By: KEEGAN Godwin Order Number: [id number] Anurag MD: Bernardo Mcwilliams Measurements Intervals Howard Rate: 56 P: 47 IN: 149 QRS: 54 QRSD: 88 T: 65 QT: 420 QTc: 407 Interpretive Statements SINUS BRADYCARDIA WITH MARKED SINUS ARRHYTHMIA BASELINE ARTIFACT IS PRESENT Electronically Signed On 01-04-2025 13:03:23 CDT by Bernardo Mcwilliams Procedure Note Bernardo Mcwilliams MD - 01/04/2025 [facility] [address], [place] [address] Test Date: 2025-01-04 Pat Name: YANETH PHILLIPS Department: 58 Room: [address] [place] [address] Gender: Male Hand Plate Stacker: [id number] : 1990 Requested By: KEEGAN Godwin Order Number: [id number] Reading MD: Bernardo Mcwilliams Measurements Intervals Howard Rate: 56 P: 47 IN: 149 QRS: 54 QRSD: 88 T: 65 QT: 420 QTc: 407 Interpretive Statements SINUS BRADYCARDIA WITH MARKED SINUS ARRHYTHMIA BASELINE ARTIFACT IS PRESENT Electronically Signed On 01-04-2025 13:03:23 CDT by Bernardo Mcwilliams us Alanna Whittington PA-C ECG ORDERABLES Final Resul t Performing Organization Address City/[facility] Co de Phone Number INTERFACE SYSTEM Refer to clinic/hospital department * MAGNESIUM LEVEL (01/03/2025 3:20 AM CDT) Only the most recent of8 resultswithin the time period is included. MAGNESIUM 2.0 1.6 - 2.6 mg/dL 01/03/2025 4:23 AM CDT [facility] Blood Venipuncture / Unknown 01/03/2025 3:20 AM CDT 01/03/2025 3:37 AM CDT us Kaylyn Sousa NP CHEMISTRY ORDERABLES Final Resul t Performing Organization Address City/[facility] Co de Phone Number [facility] CLIA# [id number] [address] [place] [address] * (ABNORMAL) DRUG SCREEN, URINE (01/02/2025 7:42 PM CDT) Only the most recent of3 resultswithin the time period is included. AMPHETAMINE QUAL, URINE Negative Negative 01/02/2025 8:38 PM CDT [facility] BARBITURATE QUAL, URINE Presumptive Positive(A) Negative 01/02/2025 8:38 PM CDT [facility] BENZODIAZEPINE QUAL, URINE Presumptive Positive(A) Negative 01/02/2025 8:38 PM CDT [facility] COCAINE QUAL URINE Negative Negative 01/02/2025 8:38 PM [facility] OPIATE QUAL, URINE Negative Negative 01/02/2025 8:38 PM [facility] CANNABINOIDS QUAL, URINE Presumptive Positive(A) Negative 01/02/2025 8:38 PM CDT [facility] PCP QUAL, URINE Negative Negative 8:38 PM [facility] OXYCODONE QUAL, URINE Negative Negative 01/02/2025 8:38 PM [facility] METHADONE QUAL, URINE Negative Negative 01/02/2025 8:38 PM [facility] FENTANYL QUAL, URINE Negative Negative 01/02/2025 8:38 PM [facility] CREATININE, URINE 247.0 40.0 - 278.0 mg/dL 01/02/2025 8:38 PM [facility] Comment:Reference Range vari es with fluid intake and diet. Urine URINE SPECIMEN OBTAINED BY CLEAN CATCH PROCEDURE / Unknown Collection / Unknown 01/02/2025 7:42 PM CDT 01/02/2025 8:00 PM CDT [facility] - 01/02/2025 8:38 PM CDT This test [...] Salgado MD URINE ORDERABLES Final Resul t [facility] - [facility] MESFINIA# [id number] [address] [place] [address] * (ABNORMAL) URINALYSIS WITH REFLEX MICROSCOPIC (01/02/2025 7:42 PM CDT) Only the most recent of3 resultswithin the time period is included. COLOR UA Yellow Pale to Dark Yellow 01/02/2025 8:21 PM CDT [facility] CLARITY UA Clear Clear 01/02/2025 8:21 PM CDT [facility] - [facility] SPECIFIC GRAVITY UA 1.024 1.003 - 1.035 01/02/2025 8:21 PM CDT [facility] - . [facility] PH UA 7.0 5.0 - 8.0 01/02/2025 8:21 PM CDT [facility] - . [facility] LEUKOCYTE ESTERASE UA Negative Negative 01/02/2025 8:21 PM CDT [facility] - . [facility] NITRITE UA Negative Negative 01/02/2025 8:21 PM CDT [facility] - . [facility] PROTEIN UA 1+(A) Negative 01/02/2025 8:21 PM CDT [facility] - [facility] GLUCOSE UA Negative Negative 01/02/2025 8:21 PM CDT [facility] - . [facility] KETONES UA Negative Negative 01/02/2025 8:21 PM CDT [facility] - . [facility] UROBILINOGEN UA Normal <2.0 mg/dL 8:21 PM CDT [facility] - . [facility] BILIRUBIN UA Negative Negative 01/02/2025 8:21 PM CDT [facility] - . [facility] BLOOD UA Negative Negative 01/02/2025 8:21 PM CDT [facility] - . [facility] WBC UA 0-2 0 - 2 /hpf 01/02/2025 8:21 PM CDT [facility] - . [facility] RBC UA 0-2 0 - 2 /hpf 01/02/2025 8:21 PM CDT [facility] - [facility] BACTERIA UA Negative Negative /hpf 01/02/2025 8:21 PM T [facility] - [facility] EPITHELIAL CELLS, URINE 0-5 0 - 5 /hpf 01/02/2025 8:21 PM T [facility] - [facility] Urine URINE SPECIMEN OBTAINED BY CLEAN CATCH PROCEDURE / Unknown Collection / Unknown 01/02/2025 7:42 PM CDT 01/02/2025 8:14 PM CDT Keegan Salgado MD URINE ORDERABLES Final Resul t [facility] [employer] [facility] [id number] [address] [facility] [place] [address] * (ABNORMAL) CBC WITH DIFFERENTIAL (01/02/2025 9:42 AM CDT) Only the most recent of5 resultswithin the time period is included. WBC 7.6 4.0 - 9.8 K/uL 01/02/2025 10:09 AM [facility] [employer] SERVICES - [facility] RBC 5.28 4.50 - 5.40 M/uL 01/02/2025 10:09 AM [facility] [employer] [facility] - [facility] HEMOGLOBIN 15.2 13.6 - 16.5 g/dL 01/02/2025 10:09 AM [facility] [employer] SERVICES - [facility] HEMATOCRIT 44.6 40.0 - 48.0 % 01/02/2025 10:09 AM [facility] [employer] [facility] - [facility] MCV 84.5 82.0 - 99.0 fL 01/02/2025 10:09 AM [facility] - [facility] MCH 28.8 27.2 - 32.6 pg 01/02/2025 10:09 AM [facility] - [facility] MCHC 34.1 31.5 - 35.5 g/dL 01/02/2025 10:09 AM [facility] - [facility] RDW 14.3 11.5 - 14.5 % 01/02/2025 10:09 AM [facility] - [facility] RDW-STDEV 43.8 37.1 - 48.7 fL 01/02/2025 10:09 AM [employer] SERVICES - [facility] PLATELETS 397(H) 140 - 350 K/uL 01/02/2025 10:09 AM [employer] SERVICES - . [facility] MPV 9.3 9.3 - 12.4 fL 01/02/2025 10:09 AM [employer] [facility] - . [facility] NEUTROPHILS 63 % 01/02/2025 10:09 AM [employer] SERVICES - . [facility] LYMPHOCYTES 26 % 01/02/2025 10:09 AM [employer] [facility] - . [facility] MONOCYTES 8 % 01/02/2025 10:09 AM [employer] [facility] - . [facility] EOSINOPHILS 2 % 01/02/2025 10:09 AM [employer] SERVICES - . [facility] BASOPHILS 1 % 01/02/2025 10:09 AM [employer] SERVICES - . [facility] IMMATURE GRANULOCYTES 1 % 01/02/2025 10:09 AM [employer] SERVICES - . [facility] Comment:IG (Immature Granulo cyte) count includes Metamyelocytes, Myelocytes, and Promyelocytes NEUTROPHIL ABSOLUTE 4.79 1.90 - 7.00 K/uL 01/02/2025 10:09 AM [employer] LABORATORY SERVICES - . [facility] LYMPHOCYTE ABSOLUTE 1.93 0.70 - 4.50 K/uL 01/02/2025 10:09 AM [employer] SERVICES - . [facility] MONOCYTE ABSOLUTE 0.63 0.10 - 1.30 K/uL 01/02/2025 10:09 AM [employer] SERVICES - . [facility] EOSINOPHIL ABSOLUTE 0.11 0.00 - 0.70 K/uL 01/02/2025 10:09 AM [employer] SERVICES - . [facility] BASOPHILS ABSOLUTE 0.08 0.00 - 0.20 K/uL 01/02/2025 10:09 AM [employer] SERVICES - . [facility] IMMATURE GRANULOCYTES ABSOLUTE 0.04(H) 0.00 - 0.03 K/uL 01/02/2025 10:09 AM [employer] [facility] - . [facility] Blood Venipuncture / Unknown 01/02/2025 9:42 AM CDT 01/02/2025 9:47 AM CDT Keegan Salgado MD HEMATOLOGY ORDERABLES Final Result Performing Organization Address [facility]/ZIP Co de Phone Number [facility]# [id number] [address] [place] [address] * LIPASE (01/02/2025 9:42 AM CDT) Only the most recent of6 resultswithin the time period is included. LIPASE 23 13 - 60 U/L 01/02/2025 10:32 AM CDT [facility] Blood Venipuncture / Unknown 01/02/2025 9:42 AM CDT 01/02/2025 9:47 AM CDT Keegan Salgado MD CHEMISTRY ORDERABLES Final R esult Performing Organization Address [facility] Co de Phone Number [facility]# [id number] [address] [place] [address] * (ABNORMAL) ETHANOL LEVEL (01/02/2025 9:42 AM CDT) Only the most recent of5 resultswithin the time period is included. ETHANOL 130.00(H) <10.10 mg/dL 01/02/2025 10:32 AM CDT [facility] LAB[facility]ORY [facility] ETHANOL % 0.13 %w/v 01/02/2025 10:32 AM CDT [facility] Blood Venipuncture / Unknown 01/02/2025 9:42 AM CDT 01/02/2025 9:47 AM CDT Keegan Salgado MD CHEMISTRY ORDERABLES Final R esult Performing Organization Address City/[facility]/ZIP Co de Phone Number [facility] [employer] [facility]# [id number] [address] [place] [address] * CARDIAC EVENT MONITOR (12/11/2024 5:00 AM CDT) 12/11/2024 5:00 AM CDT Narrative INTERFACE SYSTEM - 12/13/2024 6:30 [place] [address] Test Date: 2024-12-11 Pat Name: YANETH PHILLIPS Department: Room: [address] [place] [address] Gender: Male Hand Plate Stacker: : 1990 Requested By: DORIAN Godwin Order Number: [id number] Anurag MD: Jovi Ornelas Interpretive Statements Technical [...] Procedure Note Jovi Ornelas MD - 12/13/2024 [place] [address] Test Date: 2024-12-11 Pat Name: YANETH PHILLIPS Department: Room: [facility] Gender: Male Hand Plate Stacker: : 1990 Requested By: DORIAN Godwin Order Number: [id number] Anurag POPE: Jovi Ornelas Interpretive Statements Technical [...] - 145 mmol/L 11/24/2024 3:41 AM CDT [facility] POTASSIUM 4.3 3.4 - 5.1 mmol/L 11/24/2024 3:41 AM T [facility] Comment:Slightly hemolyzed. Result may be falsely elevated. CHLORIDE 104 98 - 107 mmol/L 11/24/2024 3:41 AM CDT [facility] CO2 22 22 - 29 mmol/L 11/24/2024 3:41 AM T [facility] CALCIUM 9.2 8.6 - 10.4 mg/dL 11/24/2024 3:41 AM CDT [facility] BUN 14 6 - 20 mg/dL 11/24/2024 3:41 AM T [facility] CREATININE 1.39(H) 0.67 - 1.17 mg/dL 11/24/2024 3:41 AM T [facility] GLUCOSE 100(H) 74 - 99 mg/dL 11/24/2024 3:41 AM T [facility] GFR >60 >=60 mL/min/1.7 3 sq meter 11/24/2024 3:41 AM T [facility] Comment:eGFR calculated with 2020 CKD-EPI equation. Vegetarian diet, extremely high or low muscle mass, and may affect results. Cystatin C with Glomerular Filtration Rate is a suitable alternative for these patients. ANION GAP 13 8 - 16 mmol/L 11/24/2024 3:41 AM T [facility] Blood Venipuncture / Unknown 11/24/2024 2:13 AM CDT 11/24/2024 3:07 AM CDT Ghassan Cadena MD CHEMISTRY ORDERABLES Final Resul t [facility]ARA# [id number] [place] [address] * (ABNORMAL) CBC WITHOUT DIFFERENTIAL (11/23/2024 8:19 AM CDT) Only the most recent of2 resultswithin the time period is included. WBC 6.9 4.0 - 9.8 K/uL 11/23/2024 8:52 AM CDT [facility] RBC 5.14 4.50 - 5.40 M/uL 11/23/2024 8:52 AM CDT [facility] HEMOGLOBIN 14.6 13.6 - 16.5 g/dL 11/23/2024 8:52 AM CDT [facility] HEMATOCRIT 42.8 40.0 - 48.0 % 11/23/2024 8:52 AM CDT [facility] MCV 83.3 82.0 - 99.0 fL 11/23/2024 8:52 AM CDT [facility] MCH 28.4 27.2 - 32.6 pg 11/23/2024 8:52 AM CDT [facility] MCHC 34.1 31.5 - 35.5 g/dL 11/23/2024 8:52 AM CDT [facility] PLATELETS 386(H) 140 - 350 K/uL 11/23/2024 8:52 AM CDT [facility] MPV 9.2(L) 9.3 - 12.4 fL 11/23/2024 8:52 AM CDT [facility] RDW 13.7 11.5 - 14.5 % 11/23/2024 8:52 AM CDT [facility] RDW-STDEV 42.0 37.1 - 48.7 fL 11/23/2024 8:52 AM T [facility] Blood Venipuncture / Unknown 11/23/2024 8:19 AM CDT 11/23/2024 8:37 AM CDT Ghassan Cadena MD HEMATOLOGY ORDERABLES Final Resu lt Performing Organization Address City/[facility]/ZIP Co de Phone Number [facility] CLIA# [id number] [place] [address] * (ABNORMAL) HEPATIC FUNCTION PANEL (11/23/2024 8:19 AM CDT) [facility] TOTAL PROTEIN 6.3 6.3 - 8.7 g/dL 11/23/2024 2:59 PM CDT [facility] LABORATORY [facility] ALBUMIN 4.0 3.5 - 5.2 g/dL 11/23/2024 2:59 PM CDT [facility] BILIRUBIN TOTAL 1.2 0.0 - 1.2 mg/dL 11/23/2024 2:59 PM CDT [facility] LAB[facility] BILIRUBIN DIRECT 0.4(H) 0.0 - 0.3 mg/dL 11/23/2024 2:59 PM CDT [facility] LAB[facility] ALKALINE PHOSPHATASE 77 40 - 150 U/L 11/23/2024 2:59 PM CDT [facility] AST 15 0 - 41 U/L 11/23/2024 2:59 PM CDT [facility] ALT 12 0 - 41 U/L 11/23/2024 2:59 PM CDT [facility] Blood Venipuncture / Unknown 11/23/2024 8:19 AM CDT 11/23/2024 8:37 AM CDT Ghassan Cadena MD CHEMISTRY ORDERABLES Final Resul t Performing Organization Address City/[facility]/ZIP Co de Phone Number [facility] LAB[facility] CLIA# [id number] [place] [address] * LACTIC ACID (11/22/2024 4:08 PM CDT) Only the most recent of3 resultswithin the time period is included. LACTIC ACID 1.1 <=2.0 mmol/L 11/22/2024 5:19 PM CDT [facility] Blood Venipuncture / Unknown 11/22/2024 4:08 PM CDT 11/22/2024 4:49 PM CDT Ericka Olivo NP CHEMISTRY ORDERABLES Final Resu lt [facility]# [id number] [place] [address] * XR CHEST PA OR AP 1 VW (11/22/2024 8:33 AM CDT) Only the most recent of2 resultswithin the time period is included. Anatomical Region Laterality Modality Chest Computed Radiogr aphy 11/22/2024 8:33 AM CDT Impressions 11/22/2024 8:36 AM CDT IMPRESSION: 1. No acute pulmonary abnormality DICTATION LOCATION: Location 7 - [facility] Narrative 11/22/2024 8:36 AM CDT XR [...] Dorian Lozano DO URINE ORDERABLES Final Result [id number] [place] [address] * PHOSPHORUS (11/22/2024 7:21 AM CDT) [facility] PHOSPHORUS 2.7 2.5 - 4.5 mg/dL 11/22/2024 1:12 PM CDT [facility] Blood Venipuncture / Unknown 11/22/2024 7:21 AM CDT 11/22/2024 7:39 AM CDT Ghassan Cadena MD CHEMISTRY ORDERABLES Final Resul t [facility] [id number] [place] [address] * (ABNORMAL) MANUAL DIFFERENTIAL (11/22/2024 6:14 AM CDT) [facility] SEGMENTED NEUTROPHILS 80 % 11/22/2024 7:27 AM CDT [facility] LYMPHOCYTES RELATIVE 15(L) 43 - 53 % 11/22/2024 7:27 AM CDT [facility] MONOCYTES RELATIVE 5 % 11/22/2024 7:27 AM T [facility] NEUTROPHILS ABSOLUTE COUNT 10.48(H) 1.90 - 7.00 K/uL 11/22/2024 7:27 AM T [facility] LYMPHOCYTES ABSOLUTE 1.91 0.70 - 4.50 K/uL 11/22/2024 7:27 AM T [facility] MONOCYTES ABSOLUTE 0.71 0.10 - 1.30 K/uL 11/22/2024 7:27 AM CDT [facility] TOTAL CELLS COUNTED IN DIFF 110 11/22/2024 7:27 AM T [facility] RBC MORPHOLOGY abnormal 11/22/2024 7:27 AM CDT [facility] PLATELET EST. Adequate 11/22/2024 7:27 AM CDT [facility] ANISOCYTOSIS 1+ /hpf 11/22/2024 7:27 AM CDT [facility] [employer] [facility] POIKILOCYTES 1+ /hpf 11/22/2024 7:27 AM CDT [facility] [employer] [facility] Blood Venipuncture / Unknown 11/22/2024 6:14 AM CDT 11/22/2024 6:50 AM CDT Result [facility] Dorian Lozano DO HEMATOLOGY ORDERABLES COM Final Result [facility] [employer] [facility] CLIA# [id number] [place] [address] * Critical Care (11/22/2024 5:52 AM CDT) [...] - 145 mmol/L 11/12/2024 2:13 AM CDT [facility] [employer] [facility] POTASSIUM 3.2(L) 3.4 - 5.1 mmol/L 11/12/2024 2:13 AM CDT [facility] CHLORIDE 99 98 - 107 mmol/L 11/12/2024 2:13 AM CDT [facility] CO2 22 22 - 29 mmol/L 11/12/2024 2:13 AM CDT [facility] CALCIUM 9.1 8.6 - 10.4 mg/dL 11/12/2024 2:13 AM CDT [facility] BUN 11 6 - 20 mg/dL 11/12/2024 2:13 AM CDT [facility] CREATININE 1.14 0.67 - 1.17 mg/dL 11/12/2024 2:13 AM CDT [facility] GLUCOSE 98 74 - 99 mg/dL 11/12/2024 2:13 AM T [facility] ALBUMIN 4.0 3.5 - 5.2 g/dL 11/12/2024 2:13 AM CDT [facility] PHOSPHORUS 3.5 2.5 - 4.5 mg/dL 11/12/2024 2:13 AM T [facility] GFR >60 >=60 mL/min/1.7 3 sq meter 11/12/2024 2:13 AM T [facility] Comment:eGFR calculated with 2020 CKD-EPI equation. Vegetarian diet, extremely high or low muscle mass, and may affect results. Cystatin C with Glomerular Filtration Rate is a suitable alternative for these patients. ANION GAP 14 8 - 16 mmol/L 11/12/2024 2:13 AM T [facility] Blood Venipuncture / Unknown 11/12/2024 1:23 AM CDT 11/12/2024 1:44 AM CDT Ghassan Cadena MD CHEMISTRY ORDERABLES Final Resul t [facility] CLIA# [id number] [place] [address] * TROPONIN (11/11/2024 3:26 AM CDT) TROPONIN T, 5TH GEN 8 <=15 ng/L 11/11/2024 8:45 AM CDT [facility] Blood Venipuncture / Unknown 11/11/2024 3:26 AM CDT 11/11/2024 3:44 AM CDT [facility] - 11/11/2024 8:45 AM CDT Troponin Detectable but normal range. Ghassan Cadena MD CHEMISTRY ORDERABLES Final Resul t [facility] CLIA# [id number] [place] [address] * TROPONIN 6 HR, 5TH GEN (11/10/2024 3:12 AM CDT) TROPONIN T, 6 HR 5TH GEN 10 <=15 ng/L 11/10/2024 3:55 AM CDT [facility] DELTA 6HR TROPONIN T -1 See Interp. 11/10/2024 3:55 AM CDT [facility] Blood Venipuncture / Unknown 11/10/2024 3:12 AM CDT 11/10/2024 3:27 AM CDT [facility] - 11/10/2024 3:55 AM CDT Troponin Detectable but normal range. Delta indeterminate. Delay in collection of timed specimen beyond recommended collection interval. Results must be interpreted in clinical context. Dorian Lozano DO CHEMISTRY ORDERABLES Final Resu lt [facility] CLIA# [id number] [place] [address] * PROCALCITONIN (11/10/2024 3:12 AM CDT) PROCALCITONIN 0.11 <2.01 ng/mL 11/10/2024 4:03 AM CDT [facility] Blood Venipuncture / Unknown 11/10/2024 3:12 AM CDT 11/10/2024 3:27 AM CDT Narrative [facility] - 11/10/2024 4:03 AM CDT The utility [...] Hurd MD CHEMISTRY ORDERABLES Final Resul t [facility] CLIA# [id number] [place] [address] * TROPONIN 2 HR, 5TH GEN (11/09/2024 9:39 PM CDT) TROPONIN T, 2 HR 5TH GEN 9 <=15 ng/L 11/09/2024 10:25 PM CDT [facility] DELTA 2HR TROPONIN T -2 See Interp. 11/09/2024 10:25 PM CDT [facility] Blood Venipuncture / Unknown 11/09/2024 9:39 PM CDT 11/09/2024 9:57 PM CDT Narrative [facility] - 11/09/2024 10:25 PM CDT Troponin Detectable but normal range. Delta not changing. Dorian Lozano DO CHEMISTRY ORDERABLES Final Resu lt Performing Organization Address City/[facility]/ZIP Co de Phone Number [facility] CLIA# [id number] [place] [address] * BLOOD CULTURE (11/09/2024 8:49 PM CDT) Only the most recent of2 resultswithin the time period is included. BLOOD CULTURE No growth 11/15/2024 10:47 AM CDT [facility] Blood (Peripheral) Venipuncture / Unknown 11/09/2024 8:49 PM CDT 11/09/2024 9:04 PM CDT us Dorian Lozano DO MICROBIOLOGY - GENERAL ORDERABL ES Final Result Performing Organization Address [facility] Co de Phone Number [facility] [employer] [facility] CLIA# [id number] [address] [place] [address] * CT ABDOMEN PELVIS W CONTRAST (11/09/2024 8:28 PM CDT) Anatomical Region Laterality Modality Abdomen Computed Tomogra phy 11/09/2024 8:28 PM CDT Impressions 11/09/2024 8:35 PM CDT IMPRESSION: 1. Distal esophageal thickening may represent esophagitis or neoplastic process. Nonemergent endoscopic evaluation is recommended. DICTATION LOCATION: Location 7 - [facility] Narrative 11/09/2024 8:35 PM CDT EXAMINATION: [...] endoscopic evaluation is recommended. DICTATION LOCATION: Location [address] [place] [address] ORDERABLES Final Result * TROPONIN BASELINE, 5TH GEN (11/09/2024 7:21 PM CDT) TROPONIN T, BASELINE 5TH GEN 11 <=15 ng/L 11/09/2024 8:15 PM CDT [facility] Comment:Hemolysis present, r edraw as indicated. Blood Venipuncture / Unknown 11/09/2024 7:21 PM CDT 11/09/2024 7:30 PM CDT Narrative [facility] [employer] [facility] - 11/09/2024 8:15 PM CDT Troponin Detectable but normal range. Dorian Lozano DO CHEMISTRY ORDERABLES Final Resu lt [facility] CLIA# [id number] [place] [address] * Critical Care (11/09/2024 7:02 PM CDT) [...] or life-threatening deterioration of the following conditions: CONTINUITY COORDINATOR failure or compromise and toxidrome Critical care [...] normal limits. DICTATION LOCATION: Location 7 - [facility] Narrative 10/30/2024 8:25 AM CDT ABDOMEN [...] within normal limits. INCIDENTAL FINDINGS: None. Result [facility] Mireya Adler MD DIAGNOSTIC IMAGING ORDERABLES E dited Result - Final * KETONES/BETA HYDROXYBUTYRATE (10/30/2024 5:49 AM CDT) BETA HYDROXYBUTYRATE 0.4 <0.5 mmol/L 10/30/2024 6:19 AM CDT [facility] [employer] [facility] Blood Venipuncture / Unknown 10/30/2024 5:49 AM CDT 10/30/2024 5:53 AM CDT Santo Mancini MD CHEMISTRY ORDERABLES Final [facility]u lt [id number] [place] [address] * C-REACTIVE PROTEIN (10/30/2024 5:49 AM CDT) [facility] CRP <3.0 <5.0 mg/L 10/30/2024 11:20 AM CDT [facility] Blood Venipuncture / Unknown 10/30/2024 5:49 AM CDT 10/30/2024 5:53 AM CDT Leti Carmen MD CHEMISTRY ORDERABLES Fi nal Result [id number] [place] [address] * VITAMIN B12 LEVEL (10/30/2024 5:49 AM CDT) [facility] VITAMIN B12 321 232 - 1,245 pg/mL 10/30/2024 2:09 PM CDT [facility] Blood Venipuncture / Unknown 10/30/2024 5:49 AM CDT 10/30/2024 5:53 AM CDT Leti Carmen MD CHEMISTRY ORDERABLES Fi nal Result [facility] [id number] [place] [address] * CT ABDOMEN PELVIS WO CONTRAST (02/25/2022 [...] Intractable nausea and vomiting. DICTATION LOCATION: Location [address] [place] [address] COMPARISON STUDIES: 01/20/2019. FINDINGS: Liver: Radiologically unremarkable [...] Intractable nausea and vomiting. DICTATION LOCATION: Location [address] [place] [address] COMPARISON STUDIES: 01/20/2019. 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
--- OUTSIDE RECORDS SUMMARY | 2025-01-05 19:14 | XMS_ITS | Referral Summary ---
Author Organization [facility] Address [address] [place] [address] Care Team Providers Care Stencil Machine Operator Name Role Phone Washington Alfaro MD Primary Care Provider [phone] Encounters Date Type Department Care Team Description 12/22/2024 9:29 AM CDT - 12/22/2024 2:16 PM CDT Emergency [facility] Emergency Department [address] [place] [phone] Kd Henderson MD Alcohol withdrawal syndrome without complication (HCC) (Primary Dx) Discharge Disposition: Discharge to home or self care 12/11/2024 2:26 PM CDT - 12/11/2024 5:58 PM CDT Emergency [facility] Emergency Department [address] [place] [phone] Discharge Disposition: Left without being seen from [...] on file 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 Gender Identity Not on file Sexual Orientation [...] MD LAB BLOOD ORDERABLES Fin al Result [facility] Department [place] [address] * Differential, auto (12/22/2024 9:50 AM CDT) Neutrophil abs 5.43 1.50 - 6.50 K/cumm Imm gran abs 0.03 0.00 - 0.10 K/cumm [facility] Lymphocyte abs 1.49 0.80 - 3.30 K/cumm [facility] Monocyte abs 0.51 0.20 - 0.80 K/cumm [facility] Eosinophil abs 0.05 0.00 - 0.50 K/cumm [facility] Basophil abs 0.08 0.00 - 0.10 K/cumm [facility] Neutrophil pct 71.5 % [facility] Comment: Interpretive Data Percent cell count reference ranges are not reported, since discordance with absolute values may lead to misinterpretation of CBC data. Current Interpretive Data was last revised on 2017. Imm gran pct 0.4 % [facility] Comment: Interpretive Data Percent cell count reference ranges are not reported, since discordance with absolute values may lead to misinterpretation of CBC data. Current Interpretive Data was last revised on 2017. Lymphocyte pct 19.6 % [facility] Comment: Interpretive Data Percent cell count reference ranges are not reported, since discordance with absolute values may lead to misinterpretation of CBC data. Current Interpretive Data was last revised on 2017. Monocyte pct 6.7 % [facility] Comment: Interpretive Data Percent cell count reference ranges are not reported, since discordance with absolute values may lead to misinterpretation of CBC data. Current Interpretive Data was last revised on 2017. Eosinophil pct 0.7 % [facility] Comment: Interpretive Data Percent cell count reference ranges are not reported, since discordance with absolute values may lead to misinterpretation of CBC data. Current Interpretive Data was last revised on 2017. Basophil pct 1.1 % [facility] Comment: Interpretive Data Percent cell count reference ranges are not reported, since discordance with absolute values may lead to misinterpretation of CBC data. Current Interpretive Data was last revised on 2017. Blood 12/22/2024 9:50 AM CDT 12/22/2024 10:07 AM CDT us Nettie Ascencio MD LAB BLOOD ORDERABLES Fin al Result Performing Organization Address City/[facility]/ZIP Co de Phone Number [facility] Department [place] [address] * (ABNORMAL) CBC with auto differential (12/22/2024 9:50 AM CDT) WBC 7.59 3.80 - 9.90 K/cumm Hgb 14.3 13.0 - 17.5 g/dL [facility] Hct 40.7 38.9 - 50.3 % [facility] Plt 354 150 - 400 K/cumm [facility] MPV 9.2 9.1 - 12.3 fL [facility] RBC 5.01 4.30 - 5.80 M/cumm [facility] MCV 81.2(L) 81.3 - 96.4 fL [facility] MCH 28.5 27.1 - 33.3 pg [facility] MCHC 35.1 32.3 - 35.7 g/dL [facility] RDW CV 14.3 11.1 - 14.9 % [facility] RDW SD 41.4 35.7 - 48.1 fL [facility] NRBC abs 0.00 0.00 - 0.01 K/cumm [facility] Blood 12/22/2024 9:50 AM CDT 12/22/2024 10:07 AM CDT us Nettie Ascencio MD LAB BLOOD ORDERABLES Fin al Result Performing Organization Address City/[facility]/ZIP Co de Phone Number [facility] [place] [address] * Phosphorus (12/22/2024 9:50 AM CDT) [facility] Phosphorus, pl 2.5 2.3 - 4.5 mg/dL Blood 12/22/2024 9:50 AM CDT 12/22/2024 10:07 AM CDT Nettie Ascencio MD LAB BLOOD ORDERABLES Fin al Result Performing Organization Address [facility] Co de Phone Number [facility] [place] [address] * Magnesium (12/22/2024 9:50 AM CDT) [facility] Magnesium 1.9 1.4 - 2.5 mg/dL Blood 12/22/2024 9:50 AM CDT 12/22/2024 10:07 AM CDT us Nettie Ascencio MD LAB BLOOD ORDERABLES Fin al Result Performing Organization Address [facility] Co de Phone Number [facility] [place] [address] * Comprehensive metabolic panel (12/22/2024 9:50 AM CDT) [facility] Sodium 143 135 - 145 mmol/L Comment:Repeated and Verifie d Potassium, pl 3.8 3.3 - 4.9 mmol/L [facility] Chloride 104 97 - 110 mmol/L [facility] Comment:Repeated and Verifie d CO2 24 22 - 32 mmol/L [facility] Anion gap 14 2 - 15 mmol/L [facility] BUN 9 6 - 25 mg/dL [facility] Creatinine 1.18 0.80 - 1.30 mg/dL [facility] Glucose 94 70 - 199 mg/dL [facility] Comment: Interpretive Data Fasting glucose >/= [...] Calcium 9.8 8.5 - 10.3 mg/dL [facility] Bilirubin, total 0.5 0.1 - 1.2 mg/dL [facility] Protein, pl 7.5 6.5 - 8.5 g/dL [facility] Albumin 4.5 3.5 - 5.0 g/dL [facility] Alk phos 99 40 - 130 Units/L [facility] ALT 33 7 - 55 Units/L [facility] AST 31 10 - 50 Units/L [facility] Blood 12/22/2024 9:50 AM CDT 12/22/2024 10:07 AM CDT us Nettie Ascencio MD LAB BLOOD ORDERABLES Fin al Result [facility] Department [place] [address] * (ABNORMAL) eGFR (12/11/2024 3:42 PM CDT) [...] MD LAB BLOOD ORDERABLES Gaby aguilar Result [facility] Department [place] [address] * (ABNORMAL) Differential, auto (12/11/2024 3:42 PM CDT) Neutrophil abs 8.82(H) 1.50 - 6.50 K/cumm Imm gran abs 0.03 0.00 - 0.10 K/cumm [facility] Lymphocyte abs 2.32 0.80 - 3.30 K/cumm [facility] Monocyte abs 0.75 0.20 - 0.80 K/cumm [facility] Eosinophil abs 0.06 0.00 - 0.50 K/cumm [facility] Basophil abs 0.04 0.00 - 0.10 K/cumm [facility] Neutrophil pct 73.5 % [facility] Comment: Interpretive Data Percent cell count reference ranges are not reported, since discordance with absolute values may lead to misinterpretation of CBC data. Current Interpretive Data was last revised on 2017. Imm gran pct 0.2 % [facility] Comment: Interpretive Data Percent cell count reference ranges are not reported, since discordance with absolute values may lead to misinterpretation of CBC data. Current Interpretive Data was last revised on 2017. Lymphocyte pct 19.3 % [facility] Comment: Interpretive Data Percent cell count reference ranges are not reported, since discordance with absolute values may lead to misinterpretation of CBC data. Current Interpretive Data was last revised on 2017. Monocyte pct 6.2 % [facility] Comment: Interpretive Data Percent cell count reference ranges are not reported, since discordance with absolute values may lead to misinterpretation of CBC data. Current Interpretive Data was last revised on 2017. Eosinophil pct 0.5 % [facility] Comment: Interpretive Data Percent cell count reference ranges are not reported, since discordance with absolute values may lead to misinterpretation of CBC data. Current Interpretive Data was last revised on 2017. Basophil pct 0.3 % [facility] Comment: Interpretive Data Percent cell count reference ranges are not reported, since discordance with absolute values may lead to misinterpretation of CBC data. Current Interpretive Data was last revised on 2017. Blood 12/11/2024 3:42 PM CDT 12/11/2024 4:05 PM CDT [place] MD LAB BLOOD ORDERABLES Gaby aguilar Result [facility] Department [place] [address] * (ABNORMAL) CBC with auto differential (12/11/2024 3:42 PM CDT) WBC 12.02(H) 3.80 - 9.90 K/cumm Hgb 16.1 13.0 - 17.5 g/dL [facility] Hct 44.7 38.9 - 50.3 % [facility] Plt 312 150 - 400 K/cumm [facility] MPV 9.3 9.1 - 12.3 fL [facility] RBC 5.63 4.30 - 5.80 M/cumm [facility] MCV 79.4(L) 81.3 - 96.4 fL [facility] MCH 28.6 27.1 - 33.3 pg [facility] MCHC 36.0(H) 32.3 - 35.7 g/dL [facility] RDW CV 14.4 11.1 - 14.9 % [facility] RDW SD 40.7 35.7 - 48.1 fL [facility] NRBC abs 0.00 0.00 - 0.01 K/cumm [facility] Blood 12/11/2024 3:42 PM CDT 12/11/2024 4:05 PM CDT [place] MD LAB BLOOD ORDERABLES Gaby aguilar Result [facility] Department [place] [address] * (ABNORMAL) Comprehensive metabolic panel (12/11/2024 3:42 PM CDT) Sodium 130(L) 135 - 145 mmol/L Potassium, pl 3.5 3.3 - 4.9 mmol/L [facility] Chloride 90(L) 97 - 110 mmol/L [facility] CO2 20(L) 22 - 32 mmol/L [facility] Anion gap 20(H) 2 - 15 mmol/L [facility] BUN 18 6 - 25 mg/dL [facility] Creatinine 1.58(H) 0.80 - 1.30 mg/dL [facility] Glucose 97 70 - 199 mg/dL [facility] Comment: Interpretive Data Fasting glucose >/= [...] 2022. Calcium 9.4 8.5 - 10.3 mg/dL [facility] Bilirubin, total 1.4(H) 0.1 - 1.2 mg/dL [facility] Protein, pl 8.2 6.5 - 8.5 g/dL [facility] Albumin 4.7 3.5 - 5.0 g/dL [facility] Alk phos 110 40 - 130 Units/L [facility] ALT 16 7 - 55 Units/L [facility] AST 29 10 - 50 Units/L [facility] Blood 12/11/2024 3:42 PM CDT 12/11/2024 4:04 PM CDT [place] MD LAB BLOOD ORDERABLES Gbay jeff Result Performing Organization Address City/State/[facility] Co de Phone Number [facility] Department [place] [address] from Last 3 Months Insurance [facility] Advance Directives For more information, please contact: [phone] * Full Code (Latest Code Status on File) Date Activated Date Inactivated Comments 04/29/2024 6:16 PM 04/30/2024 10:54 PM Care Teams Stencil Machine Operator Relationship Specialty Start Date End Date Washington Alfaro MD PCP - General 12/25/16
--- OUTSIDE RECORDS SUMMARY | 2025-01-05 19:14 | XMS_ITS | Encounter Summary ---
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
--- OUTSIDE RECORDS SUMMARY | 2025-01-05 19:14 | XMS_ITS | Clinical Summary ---
Author Organization [facility] [employer] Address [address] [place] [address] Care Team Providers Care [employer] Lead Name Role Phone Unavailable Primary Care Provider Unavailabl e Source Comments [facility] [employer],non-owned Affiliates and Associated Physician Practices is amultiple site organization consisting of ambulatory clinics and hospital sitesin [place], [place], [place] and [place]. This disclosure is being madepursuant to the Care Everywhere program and may not contain all information available regarding this patient. Last updated 18.[facility] [employer] Allergies Active Allergy Reactions Criticality Noted Date [...] Team Description 12/15/2024 Telephone Transitional Care at [address] [address] Mónica Hurley RN Missed Appointment 12/12/2024 Telephone Transitional Care at [address] [address] Glenny Thomason, armature connector 12/11/2024 Refill [facility] [address] [place] [address] Luis Smith MD MEDICATION REFILL 12/11/2024 Telephone Transitional Care at [address] [address] Salud Robb, armature connector 12/07/2024 3:45 PM CDT - 12/10/2024 1:15 PM CDT Hospital Encounter [facility] [address] [place] [phone] Krausz, Jac E, MD Foreman, MichaelDO Kvng [...] and heating? Not hard at all 12/07/2024 [facility] Occupat ional [facility] - Occupational Stress [...] any time in the past 12 m [facility], were you homeless or living in a nursing home (including now)? 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 Pathologist [facility] WBC 9.1 4.0 - 10.7 x10E9/L 12/10/2024 12:27 AM [facility] RBC Count 5.46 4.30 - 5.80 x10E12/L 12/10/2024 12:27 AM [facility] Hemoglobin 15.6 13.3 - 17.5 g/dL 12/10/2024 12:27 AM [facility] Hematocrit 44.1 38.7 - 51.1 % 12/10/2024 12:27 AM [facility] MCV 80.8 80.0 - 98.0 fL 12/10/2024 12:27 AM [facility] MCH 28.6 26.7 - 33.6 pg 12/10/2024 12:27 AM [facility] MCHC 35.4 31.7 - 36.3 g/dL 12/10/2024 12:27 AM [facility] RDW-CV 14.2 11.3 - 14.8 % 12/10/2024 12:27 AM [facility] Platelet Count 289 150 - 420 x10E9/L 12/10/2024 12:27 AM [facility] MPV 9.4 7.8 - 11.4 fL 12/10/2024 12:27 AM [facility] Blood BLOOD SPECIMEN / Unknown Venipuncture / Unknown 12/09/2024 11:07 PM CDT 12/10/2024 12:03 AM CDT Dave Calderon MD LAB - HEMATOLOGY ORDERABLES Gaby aguilar Result [facility] [address] [place] [address], [facility] [phone] * (ABNORMAL) BASIC METABOLIC PANEL (CALCIUM TOTAL) (12/09/2024 11:07 PM T) Only the most recent of2 resultswithin the time period is included. BUN 9 7 - 26 mg/dL 12/10/2024 12:34 AM [facility] Creatinine 1.00 0.71 - 1.16 mg/dL 12/10/2024 12:34 AM [facility] Sodium 140 136 - 145 mmol/L 12/10/2024 12:34 AM [facility] Potassium 3.4(L) 3.5 - 4.5 mmol/L 12/10/2024 12:34 AM [facility] Chloride 104 98 - 107 mmol/L 12/10/2024 12:34 AM [facility] CO2 23 22 - 29 mmol/L 12/10/2024 12:34 AM [facility] Glucose 99 70 - 99 mg/dL 12/10/2024 12:34 AM [facility] Calcium 9.5 8.4 - 10.2 mg/dL 12/10/2024 12:34 AM [facility] Anion Gap 13 6 - 16 12/10/2024 12:34 AM [facility] BUN/Creatinine Ratio 9 7 - 23 12/10/2024 12:34 AM [facility] Osmolality Calculated 289 275 - 295 mOsm/kg 12/10/2024 12:34 AM [facility] eGFR by CKD-EPI >90 >=90 mL/min/1.7 3 m2 12/10/2024 12:34 AM CDT [facility] Blood BLOOD SPECIMEN / Unknown Venipuncture / Unknown 12/09/2024 11:07 PM CDT 12/10/2024 12:02 AM CDT Narrative [facility] - 12/10/2024 12:34 AM CDT Estimated Glomerular Filtration Rate (eGFR) calculated using the CKD-EPI Creatinine Equation (2020), per the National Kidney Foundation and [place] Society of Nephrology recommendations. Dave Calderon MD LAB - CHEMISTRY ORDERABLES Final Result [address] [address], [facility] [phone] * PHOSPHORUS BLOOD (12/09/2024 11:07 PM CDT) Only the most recent of2 resultswithin the time period is included. Phosphorus 3.3 2.8 - 5.1 mg/dL 12/10/2024 12:34 AM CDT [facility] Blood BLOOD SPECIMEN / Unknown Venipuncture / Unknown 12/09/2024 11:07 PM CDT 12/10/2024 12:02 AM CDT Dave Calderon MD LAB - CHEMISTRY ORDERABLES Final Result [address] [address], [place] [phone] * MAGNESIUM BLOOD (12/09/2024 11:07 PM CDT) Only the most recent of2 resultswithin the time period is included. Magnesium 1.9 1.6 - 2.6 mg/dL 12/10/2024 12:34 AM CDT [facility] Blood BLOOD SPECIMEN / Unknown Venipuncture / Unknown 12/09/2024 11:07 PM CDT 12/10/2024 12:02 AM CDT us Dave Calderon MD LAB - CHEMISTRY ORDERABLES Final Result Performing Organization Address City/[facility]/ZIP Co de Phone Number [address] [address], [place] [phone] * VITAMIN B12 (12/08/2024 8:44 AM CDT) Vitamin B12 323 213 - 816 pg/mL 12/08/2024 10:01 AM T [facility] Blood BLOOD SPECIMEN / Unknown Lab Venipuncture / Unknown 12/08/2024 8:44 AM CDT 12/08/2024 9:00 AM CDT us Michael Foreman DO LAB - CHEMISTRY ORDERABLES Fin al Result Performing Organization Address [facility]/ZIP Co de Phone Number [address] [address], [place] [phone] * (ABNORMAL) URINE DRUG SCREEN IMMUNOASSAY (12/07/2024 3:09 PM CDT) [facility] Amphetamines Screen Urine Negative Negative : < 1000 ng/mL 12/07/2024 4:00 PM [facility] Barbiturates Screen Urine Negative Negative : < 200 ng/mL 12/07/2024 4:00 PM [facility] Benzodiazepine Screen Urine Positive(A) Negative : < 200 ng/mL 12/07/2024 4:00 PM [facility] Comment: Positive urine benzodiazepine screening results should be confirmed by another generally accepted non-immunological method such as gas chromatography or mass spectrometry. Opiates Urine Negative Negative : < 300 ng/mL 12/07/2024 4:00 PM [facility] Cocaine Metabolites Urine Negative Negative : < 300 ng/mL 12/07/2024 4:00 PM [facility] Phencyclidine Screen Urine Negative Negative : < 25 ng/ml 12/07/2024 4:00 PM [facility] Cannabinoids Screen Urine Positive(A) Negative : <50 ng/mL 12/07/2024 4:00 PM [facility] Comment:Positive urine canna binoids (THC) screening results should be confirmed by another generally accepted non-immunological method such as gas chromatography or mass spectrometry. Methadone Screen Urine Negative Negative : < 300 ng/mL 12/07/2024 4:00 PM [facility] Fentanyl Screen Urine Negative Negative : <1.5 ng/mL 12/07/2024 4:00 PM T [facility] Urine URINE / Unknown Collection / Unknown 12/07/2024 3:09 PM CDT 12/07/2024 3:17 PM CDT [facility] - 12/07/2024 4:00 PM CDT The Urine Toxicology Screening Panel does not screen for Propoxyphene, Meprobamate, Carisoprodol, Trazodone, mnfb-cjn-dzpnzlc medications and/or volatiles (Acetone, Isopropanol, Methanol or Ethylene Glycol). Ethanol, Salicylate, Acetaminophen, Tricyclic Antidepressants and several therapeutic drugs may be individually assayed in serum or plasma specimen. Toxicology testing by the [facility] is an aid to medical diagnosis and treatment of patients. No documented chain of custody was maintained. Results are intended to be used for clinical purposes only. us Amparo Nava PA-C LAB - URINE CHEMISTRY ORDERAB LES Final Result [facility] [address] [place] [address], [facility] [phone] * CBC W AUTO DIFFERENTIAL (12/07/2024 3:02 PM CDT) WBC 5.5 4.0 - 10.7 x10E9/L 12/07/2024 3:25 PM [facility] RBC Count 5.01 4.30 - 5.80 x10E12/L 12/07/2024 3:25 PM [facility] Hemoglobin 14.3 13.3 - 17.5 g/dL 12/07/2024 3:25 PM [facility] Hematocrit 40.8 38.7 - 51.1 % 12/07/2024 3:25 PM [facility] MCV 81.4 80.0 - 98.0 fL 12/07/2024 3:25 PM [facility] MCH 28.5 26.7 - 33.6 pg 12/07/2024 3:25 PM [facility] MCHC 35.0 31.7 - 36.3 g/dL 12/07/2024 3:25 PM [facility] RDW-CV 14.2 11.3 - 14.8 % 12/07/2024 3:25 PM [facility] Platelet Count 250 150 - 420 x10E9/L 12/07/2024 3:25 PM [facility] MPV 9.2 7.8 - 11.4 fL 12/07/2024 3:25 PM [facility] Neutrophil % 54.7 41.0 - 74.0 % 12/07/2024 3:25 PM [facility] Lymphocyte % 36.6 17.0 - 47.0 % 12/07/2024 3:25 PM [facility] Monocyte % 6.3 3.0 - 11.0 % 12/07/2024 3:25 PM [facility] Eosinophil % 1.3 0.0 - 7.0 % 12/07/2024 3:25 PM [facility] Basophil % 0.9 0.0 - 1.6 % 12/07/2024 3:25 PM [facility] Immature Granulocytes % 0.2 0.0 - 1.0 % 12/07/2024 3:25 PM [facility] Neutrophil Absolute 3.03 1.60 - 7.50 x10E9/L 12/07/2024 3:25 PM [facility] Lymphocyte Absolute 2.03 1.00 - 4.40 x10E9/L 12/07/2024 3:25 PM [facility] Monocyte Absolute 0.35 0.15 - 1.00 x10E9/L 12/07/2024 3:25 PM [facility] Eosinophil Absolute 0.07 0.00 - 0.60 x10E9/L 12/07/2024 3:25 PM [facility] Basophil Absolute 0.05 0.00 - 0.13 x10E9/L 12/07/2024 3:25 PM [facility] Blood BLOOD SPECIMEN / Unknown Venipuncture / Unknown 12/07/2024 3:02 PM CDT 12/07/2024 3:13 PM CDT Amparo Nava PA-C LAB - HEMATOLOGY ORDERABLES F inal Result [facility] [address] [place] [address], [facility] [phone] * COMPREHENSIVE METABOLIC PANEL (12/07/2024 3:02 PM CDT) BUN 9 7 - 26 mg/dL 12/07/2024 3:48 PM [facility] Creatinine 0.95 0.71 - 1.16 mg/dL 12/07/2024 3:48 PM [facility] Sodium 139 136 - 145 mmol/L 12/07/2024 3:48 PM [facility] Potassium 3.7 3.5 - 4.5 mmol/L 12/07/2024 3:48 PM [facility] Chloride 104 98 - 107 mmol/L 12/07/2024 3:48 PM [facility] CO2 26 22 - 29 mmol/L 12/07/2024 3:48 PM [facility] Glucose 86 70 - 99 mg/dL 12/07/2024 3:48 PM [facility] Calcium 9.1 8.4 - 10.2 mg/dL 12/07/2024 3:48 PM [facility] Protein Total 7.4 6.0 - 8.3 g/dL 12/07/2024 3:48 PM [facility] Albumin 4.3 3.4 - 5.0 g/dL 12/07/2024 3:48 PM [facility] Bilirubin Total 0.8 0.2 - 1.2 mg/dL 12/07/2024 3:48 PM [facility] Alkaline Phosphatase 92 40 - 150 U/L 12/07/2024 3:48 PM [facility] ALT 25 5 - 55 U/L 12/07/2024 3:48 PM [facility] AST 25 5 - 34 U/L 12/07/2024 3:48 PM CDT [facility] Anion Gap 9 6 - 16 12/07/2024 3:48 PM CDT [facility] BUN/Creatinine Ratio 9 7 - 23 12/07/2024 3:48 PM CDT [facility] Osmolality Calculated 286 275 - 295 mOsm/kg 12/07/2024 3:48 PM CDT [facility] Albumin/Globulin Ratio 1.4 1.1 - 2.3 12/07/2024 3:48 PM T [facility] eGFR by CKD-EPI >90 >=90 mL/min/1.7 3 m2 12/07/2024 3:48 PM CDT [facility] Blood BLOOD SPECIMEN / Unknown Venipuncture / Unknown 12/07/2024 3:02 PM CDT 12/07/2024 3:13 PM CDT [facility] - 12/07/2024 3:48 PM CDT Estimated Glomerular Filtration Rate (eGFR) calculated using the CKD-EPI Creatinine Equation (2020), per the National Kidney Foundation and [place] Society of Nephrology recommendations. Amparo Nava PA-C LAB - CHEMISTRY ORDERABLES nal Result [facility] [address] [place] [address], [facility] [phone] * (ABNORMAL) ALCOHOL ETHYL BLOOD (12/07/2024 3:02 PM CDT) Ethanol (mg/dL) 175(H) <10 mg/dL 3:48 PM CDT [facility] Ethanol Calculated (g/dL) 0.175(H) <=0.010 g/dL 12/07/2024 3:48 PM CDT [facility] Blood BLOOD SPECIMEN / Unknown Venipuncture / Unknown 12/07/2024 3:02 PM CDT 12/07/2024 3:13 PM CDT Narrative [facility] - 12/07/2024 3:48 PM CDT Ethanol Interp <10: None Detected. Depression of OFFSHORING MANAGER: >100 mg/dl Potentially Critical: >250 mg/dl Potentially [...] LAB - CHEMISTRY ORDERABLES Fi nal Result [address] [address], [facility] [phone] * HIV-1 HIV-2 ANTIBODY + HIV P24 AG PANEL (11/07/2021 8:38 AM CDT) [facility] HIV1/2 Ab + P24 Ag Non Reactive Non Reactive 11/07/2021 9:40 AM CDT [facility] Blood BLOOD SPECIMEN / Unknown Venipuncture / Unknown 11/07/2021 8:38 AM CDT 11/07/2021 8:52 AM CDT Narrative [facility] - 11/07/2021 9:40 AM CDT No Laboratory evidence of HIV infection. Niall Corbett MD LAB - CHEMISTRY ORDERABLES F inal Result Performing Organization Address City/[facility] Co de Phone Number [facility] [address] [place] [address] from Last 3 Months or Most Recently Relevant to Health Maintenance Additional Health Concerns Infection Onset Date Last Indicated C Diff Hx 12/03/2023 04/19/2024 Insurance [employer] Member Subscriber Plan / Payer (Ef fective 2024-Present) Name:Jorgito Henderson Relation to Subscriber:Self Name:Jorgito Henderson Payer ID:[id number] (NAIC) Type:[facility] Address: [facility] [address] [place] [phone] Advance Directives Documents on File Type Date Recorded Patient Filling Layer Up Expl anation Adv Directive/Living Will/POA 09/08/2013 3:35 [...]
--- OUTSIDE RECORDS SUMMARY | 2025-01-05 19:14 | XMS_ITS | Clinical Summary ---
Author Organization [facility] Address [address] [place] [address] Care Team Providers Care Java Mobile Developer Name Role Phone Washington Alfaro MD Primary Care Provider [phone] Allergies Active Allergy Reactions Criticality Noted Date [...] CDT - 12/22/2024 2:16 PM CDT Emergency [facility] [address] [place] [address] Kd Henderson MD Alcohol withdrawal syndrome without complication (HCC) (Primary Dx) Discharge Disposition: Discharge to home or self care 12/11/2024 2:26 PM CDT - 12/11/2024 5:58 PM CDT Emergency 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10 K/cumm [facility] Neutrophil pct 71.5 % [facility] Comment: Interpretive Data Percent cell count reference ranges are not reported, since discordance with absolute values may lead to misinterpretation of CBC data. Current Interpretive Data was last revised on 2017. Imm gran pct 0.4 % [facility] Comment: Interpretive Data Percent cell count reference ranges are not reported, since discordance with absolute values may lead to misinterpretation of CBC data. Current Interpretive Data was last revised on 2017. Lymphocyte pct 19.6 % [facility] Comment: Interpretive Data Percent cell count reference ranges are not reported, since discordance with absolute values may lead to misinterpretation of CBC data. Current Interpretive Data was last revised on 2017. Monocyte pct 6.7 % [facility] Comment: Interpretive Data Percent cell count reference ranges are not reported, since discordance with absolute values may lead to misinterpretation of CBC data. Current Interpretive Data was last revised on 2017. Eosinophil pct 0.7 % [facility] Comment: Interpretive Data Percent cell count reference ranges are not reported, since discordance with absolute values may lead to misinterpretation of CBC data. Current Interpretive Data was last revised on 2017. Basophil pct 1.1 % [facility] Comment: Interpretive Data Percent cell count reference ranges are not reported, since discordance with absolute values may lead to misinterpretation of CBC data. Current Interpretive Data was last revised on 2017. Blood 12/22/2024 9:50 AM CDT 12/22/2024 10:07 AM CDT us Nettie Ascencio MD LAB BLOOD ORDERABLES Fin al Result [facility] [place] [address] * (ABNORMAL) CBC with auto differential (12/22/2024 9:50 AM CDT) [facility] [address] WBC 7.59 3.80 - 9.90 K/cumm Hgb 14.3 13.0 - 17.5 g/dL [facility] Hct 40.7 38.9 - 50.3 % [facility] Plt 354 150 - 400 K/cumm [facility] MPV 9.2 9.1 - 12.3 fL [facility] RBC 5.01 4.30 - 5.80 M/cumm [facility] MCV 81.2(L) 81.3 - 96.4 fL [facility] MCH 28.5 27.1 - 33.3 pg [facility] MCHC 35.1 32.3 - 35.7 g/dL [facility] RDW CV 14.3 11.1 - 14.9 % [facility] RDW SD 41.4 35.7 - 48.1 fL [facility] NRBC abs 0.00 0.00 - 0.01 K/cumm [facility] Blood 12/22/2024 9:50 AM CDT 12/22/2024 10:07 AM CDT us Nettie Ascencio MD LAB BLOOD ORDERABLES Fin al Result Performing Organization Address City/[facility] Co de Phone Number [facility] [place] [address] * Phosphorus (12/22/2024 9:50 AM CDT) [facility] [address] Phosphorus, pl 2.5 2.3 - 4.5 mg/dL Blood 12/22/2024 9:50 AM CDT 12/22/2024 10:07 AM CDT us Nettie Ascencio MD LAB BLOOD ORDERABLES Fin al Result [facility] [place] [address] * Magnesium (12/22/2024 9:50 AM CDT) Magnesium 1.9 1.4 - 2.5 mg/dL Blood 12/22/2024 9:50 AM CDT 12/22/2024 10:07 AM CDT Nettie Ascencio MD LAB BLOOD ORDERABLES Fin al Result [facility] [place] [address] * Comprehensive metabolic panel (12/22/2024 9:50 AM CDT) Sodium 143 135 - 145 mmol/L Comment:Repeated and Verifie d Potassium, pl 3.8 3.3 - 4.9 mmol/L [facility] Chloride 104 97 - 110 mmol/L [facility] Comment:Repeated and Verifie d CO2 24 22 - 32 mmol/L [facility] Anion gap 14 2 - 15 mmol/L [facility] BUN 9 6 - 25 mg/dL [facility] Creatinine 1.18 0.80 - 1.30 mg/dL [facility] Glucose 94 70 - 199 mg/dL [facility] Comment: Interpretive Data Fasting glucose >/= [...] 2022. Calcium 9.8 8.5 - 10.3 mg/dL [facility] Bilirubin, total 0.5 0.1 - 1.2 mg/dL [facility] Protein, pl 7.5 6.5 - 8.5 g/dL [facility] Albumin 4.5 3.5 - 5.0 g/dL [facility] Alk phos 99 40 - 130 Units/L [facility] ALT 33 7 - 55 Units/L [facility] AST 31 10 - 50 Units/L [facility] Blood 12/22/2024 9:50 AM CDT 12/22/2024 10:07 AM CDT Nettie Ascencio MD LAB BLOOD ORDERABLES Fin al Result Performing Organization Address [facility] Co de Phone Number [facility] [place] [address] * (ABNORMAL) eGFR (12/11/2024 3:42 PM CDT) [...] ORDERABLES Gaby l Result Performing Organization Address [facility] Co de Phone Number [facility] Department [place] [address] * (ABNORMAL) Differential, auto (12/11/2024 3:42 PM CDT) Neutrophil abs 8.82(H) 1.50 - 6.50 K/cumm Imm gran abs 0.03 0.00 - 0.10 K/cumm [facility] Lymphocyte abs 2.32 0.80 - 3.30 K/cumm [facility] Monocyte abs 0.75 0.20 - 0.80 K/cumm [facility] Eosinophil abs 0.06 0.00 - 0.50 K/cumm [facility] Basophil abs 0.04 0.00 - 0.10 K/cumm [facility] Neutrophil pct 73.5 % [facility] Comment: Interpretive Data Percent cell count reference ranges are not reported, since discordance with absolute values may lead to misinterpretation of CBC data. Current Interpretive Data was last revised on 2017. Imm gran pct 0.2 % [facility] Comment: Interpretive Data Percent cell count reference ranges are not reported, since discordance with absolute values may lead to misinterpretation of CBC data. Current Interpretive Data was last revised on 2017. Lymphocyte pct 19.3 % [facility] Comment: Interpretive Data Percent cell count reference ranges are not reported, since discordance with absolute values may lead to misinterpretation of CBC data. Current Interpretive Data was last revised on 2017. Monocyte pct 6.2 % [facility] Comment: Interpretive Data Percent cell count reference ranges are not reported, since discordance with absolute values may lead to misinterpretation of CBC data. Current Interpretive Data was last revised on 2017. Eosinophil pct 0.5 % [facility] Comment: Interpretive Data Percent cell count reference ranges are not reported, since discordance with absolute values may lead to misinterpretation of CBC data. Current Interpretive Data was last revised on 2017. Basophil pct 0.3 % [facility] Comment: Interpretive Data Percent cell count reference ranges are not reported, since discordance with absolute values may lead to misinterpretation of CBC data. Current Interpretive Data was last revised on 2017. Blood 12/11/2024 3:42 PM CDT 12/11/2024 4:05 PM CDT Pearl Park MD LAB BLOOD ORDERABLES Gaby l Result Performing Organization Address [facility] de Phone Number [facility] [place] [address] * (ABNORMAL) CBC with auto differential (12/11/2024 3:42 PM CDT) [facility] [address] WBC 12.02(H) 3.80 - 9.90 K/cumm Hgb 16.1 13.0 - 17.5 g/dL [facility] Hct 44.7 38.9 - 50.3 % [facility] Plt 312 150 - 400 K/cumm [facility] MPV 9.3 9.1 - 12.3 fL [facility] RBC 5.63 4.30 - 5.80 M/cumm [facility] MCV 79.4(L) 81.3 - 96.4 fL [facility] MCH 28.6 27.1 - 33.3 pg [facility] MCHC 36.0(H) 32.3 - 35.7 g/dL [facility] RDW CV 14.4 11.1 - 14.9 % [facility] RDW SD 40.7 35.7 - 48.1 fL [facility] NRBC abs 0.00 0.00 - 0.01 K/cumm [facility] Blood 12/11/2024 3:42 PM CDT 12/11/2024 4:05 PM CDT Pearl Park MD LAB BLOOD ORDERABLES Gaby l Result Performing Organization Address [facility] Co de Phone Number [facility] [place] [address] * (ABNORMAL) Comprehensive metabolic panel (12/11/2024 3:42 PM CDT) [facility] [address] Sodium 130(L) 135 - 145 mmol/L Potassium, pl 3.5 3.3 - 4.9 mmol/L [facility] Chloride 90(L) 97 - 110 mmol/L [facility] CO2 20(L) 22 - 32 mmol/L [facility] Anion gap 20(H) 2 - 15 mmol/L [facility] BUN 18 6 - 25 mg/dL [facility] Creatinine 1.58(H) 0.80 - 1.30 mg/dL [facility] Glucose 97 70 - 199 mg/dL [facility] Comment: Interpretive Data Fasting glucose >/= [...] Calcium 9.4 8.5 - 10.3 mg/dL [facility] Bilirubin, total 1.4(H) 0.1 - 1.2 mg/dL [facility] Protein, pl 8.2 6.5 - 8.5 g/dL [facility] Albumin 4.7 3.5 - 5.0 g/dL [facility] Alk phos 110 40 - 130 Units/L [facility] ALT 16 7 - 55 Units/L [facility] AST 29 10 - 50 Units/L [facility] Blood 12/11/2024 3:42 PM CDT 12/11/2024 4:04 PM CDT Pearl Park MD LAB BLOOD ORDERABLES Gaby aguilar Result [facility] [place] [address] from Last 3 Months Insurance [facility] CMR Advance Directives For more information, please contact: [phone] * Full Code (Latest Code Status on File) Date Activated Date Inactivated Comments 04/29/2024 6:16 PM 04/30/2024 10:54 PM Care Teams Java Mobile Developer Relationship Specialty Start Date End Date Washington Alfaro MD PCP - General 12/25/16
--- OUTSIDE RECORDS SUMMARY | 2025-01-05 19:14 | XMS_ITS | Encounter Summary ---
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
--- OUTSIDE RECORDS SUMMARY | 2025-01-05 19:14 | XMS_ITS | Clinical Summary ---
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] Documents on File Type Date Recorded Patient Ag Equipment Field Service Technician Expl anation Advance Directives and Living Will [...] 11/29/2012 12:00 AM ADVANCED DIRECTIVES Care Teams Wood Cabinet Finisher Relationship Specialty Start Date End Date None, Provider, PCP - General 04/03/18
--- OUTSIDE RECORDS SUMMARY | 2025-01-05 19:14 | XMS_ITS | Encounter Summary ---
Author Organization [facility] Address [address] [place] [address] Care Team Providers Care Conservation Worker Name Role Phone Unavailable Primary Care Provider Unavailabl e Reason for Visit * Reason Comments Withdrawal Etoh withdrawal, nor keerthi drinks approx 15-20 shots per day. 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 No hx sz. +N/V * Auth/Cert (Routine) Specialty Diagnoses / Procedures Referred By Crescencio t Referred To Contact Emergency Medicine [facility] Emergency Department [address] [place] [address] Phone: tel: fax: Referral ID Status Reason Start Date Expiration Date Visits Re quested Visits Authorized [id number] 1 1 Encounter Details Date Type Department Care Team (Latest Contact Info) Description 01/02/2025 9:18 AM CDT - 01/05/2025 8:47 AM CDT Hospital Encounter [facility] Med Surg Step Down [facility] [address] [place] [address] Keegan Salgado MD [address] [place] [address] Kenneth Cooper MD [address] [place] [address] Edd Malone DO [address] [place] [address] Khris Gandhi MD [address] [place] [address] Alcohol intoxication delirium with moderate or severe use disorder ([facility]/HCC) Discharge Disposition: Home or Self Care Social [...] Gandhi MD - 01/05/2025 8:01 AM CDT [facility] Adult Hospitalist Discharge Summary Yaneth Henderson 34 y.o. male 1990 CSN: [id number] Date of Admission: 01/02/2025 Date of Discharge: 01/05/2025 Discharging Physician: Khris Gandhi MD LOS: 2 days PCP: No primary care provider on file. Activity: activity as tolerated. Dispo: home Diet: DIET GENERAL Effective Now Code Status at Discharge: Full Code Wound Care: None needed Hospital Course: Yaneth Henderson, a 34-year-old male with a history of alcohol use disorder and depression, was admitted to [facility] on 01/02/2025 for acute alcohol withdrawal. 1 2 He reported consuming 15-20 shots of vodka daily, with his last drink on the morning of admission. 1 3 On presentation, his ethanol level was 130 mg/dL. 1 He was initially treated with IV phenobarbital in the emergency departmentand continued on a phenobarbital taper during his hospitalization. 1 3 The [facility] [place] Withdrawal Assessment for Alcohol (CIWA) protocol was [...] delirium with moderate or severe use disorder ([facility]) Resolved Hospital Problems No resolved problems to [...] minutes were spent in this discharge activity. Khris Gandhi MD documented in this encounter Discharge Instructions * Discharge Instructions* Conchita Meredith RN - 01/03/2025 9:39 AM CDT If you do not have a PCP you may use the Physician Referral Service [facility] Physician Referral Service is a free, confidential, computerized service staffed by referral specialists. Our co-workers will help you find the names of several physicians that meet your requirements and provide you with their qualifications and background information. Referrals are based on your specific criteria: Requested specialty Office location Primary hospital practice site Specialized training Participation in insurance plans Call Wednesday through Wednesday at [phone] or . During your hospital stay you were cared for by the [facility] Hospitalists. Your primary care physicianwill have [...] Gandhi MD - 01/04/2025 10:46 AM CDT [facility] Adult Hospitalist Progress Note Admit Date: 01/02/2025 [...] (36.9 ??C) Incontinent small amount stool (01/03/25 5489) Exam: Gen Alert, NAD Lungs clear to auscultation bilaterally Heart regular rate and rhythm, S1, S2 normal, no murmur, click, rub or gallop Abdomen soft, NT, ND Extremities No edema, WWP Data: I have reviewed all new labs and studies resulted and pertinent ones are noted above Khris Gandhi MD Please contact me via milog Secure Chat from 7am-7pm After hours please place E-ticket to [facility] * Alanna Whittington PA-C - 01/04/2025 3:53 AM CDT [facility] 01/04/25 3:53 AM Contacted for: tele reading arrhythmia Vitals: 01/04/25 0334 BP: (!) 125/95 Pulse: 71 Resp: 15 Temp: 97.6 ??F (36.4 ??C) SpO2: 99% Intervention/Follow up/Discussion: Reviewed chart, patient here for acute ETOH intoxication with subsequent withdrawal. Last drink 01/02. Tonight porcelain waxer started reading sinus arrhythmia. EKGcompleted confirms arrhythmia with HR 56. Patient had a cardiac event monitor in December of this year which was unremarkable. Patient has been receiving phenobarbital taper and ativan. Patient is asymptomatic. Check electrolytes. Continue tele monitoring Alanna Whittington PA-C Cosigned by Poli Harris MD at 01/04/2025 6:34 AM CDT * Cramelita Uribe, ANNETTE - 01/03/2025 3:49 PM CDT End of Shift Note: Neuro: A&O x4. CIWA Q2 completed this shift with scores 9-17. Complaints of headache treated per SEP. Resp: RA. CV: SB-SR with HR 50-80s. SBP 120-150s. Afebrile. GI: 1 BM this shift per patient. : Urinal at bedside, see chart for urine output. * Oksana, Khris Stringer MD - 01/03/2025 11:02 AM CDT [facility] Adult Hospitalist Progress Note Admit Date: 01/02/2025 [...] Khris Gandhi MD Please contact me via milog Secure Chat from 7am-7pm After hours please place E-ticket to [facility] * Vaughn Ross PA-C - 01/03/2025 6:04 AM CDT [facility] CROSS COVER NOTE 01/03/25 6:04 AM Contacted for: pt c/o anxiety 02/11 request something to help. was given. Possible Ativan?CIWA 13 Vitals: 01/03/25 0339 BP: 134/85 Pulse: 70 Resp: 10 Temp: 98.3 ??F (36.8 ??C) SpO2: 98% Intervention/Follow up/Discussion: Reviewed chart, patient here for alcohol withdrawal on phenobarb. -1x 0.5mg PO ativan Vaughn Ross PA-C Cosigned by Poli Harris MD at 01/03/2025 6:08 AM CDT * Emmy Birch APRN - 01/02/2025 7:48 PM CDT [facility] 01/02/25 7:48 PM [...] Sousa NP - 01/02/2025 1:09 PM CDT [facility] Adult Hospitalist Admission H & P Patient [...] IV fluids. Magnesium, thiamine, folic acid. 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 History of cannabis hyperemesis syndrome. Encourage cessation. DVT prophylaxis: Lovenox Home medication list reviewed: MANUFACTURERS AGENT remeron only PT/OT: no Code Status: full [...] Hematopoetic: Patient denies anemia, bleeding, easy bruisability. INSURANCE ADJUSTER: Patient denies headache, syncope, seizures. Eye: Patient [...] 23 13 - 60 U/L Kaylyn Sousa [facility] Hospitalists *Message me through Secure Chat in Epic -7p From contact the [facility]-Hospitalist via this ticket system Cosigned by Khris Gandhi MD at 01/02/2025 2:25 PM CDT Associated attestation - Khris Gandhi MD - 01/02/2025 2:25 PM CDT [facility] Hospitalist Attending Note Patient seen and [...] for cessation resources Rest of plan per BABY FORMULA WORKER H&P Khris [facility] ED Notes * [...] short, the patient with h/o cannabis hyperemesis, SCOOTER, alcohol abuse, polysubstance abuse presents with NV. [...] between homes living in his car. [facility] Talita Rose RN/[facility] [phone] * Care Plan - Elma Yi RN [...] need for additional high fall risk interventions. Follow Up Rep: Remains free from injury or complications during [...] remained low with no additional interventions needed. Follow Up Rep: Remains free from injury or complications during [...] Sister Prescription coverage: yes Preferred Pharmacy verified: [id number] - [place], [place] - [address] [place] [address] AT [facility] Insurance coverage verified: Payor: MAYTETNA / Plan: DILLON [id number] POS II / Product Type: POS / [...] and assist asneeded. Conchita Meredith RN BSN [employer] [phone] Problem: Discharge Planning Goal: Identify discharge needs [...] recent care team on record included: Jeff Higginbotham. BACKGROUND: Drips the patient are on include: [...] - 145 mmol/L 01/05/2025 6:27 AM CDT [facility] [place] POTASSIUM 3.4(L) 3.5 - 5.0 mmol/L 01/05/2025 6:27 AM CDT [facility] . [facility] CHLORIDE 103 98 - 107 mmol/L 01/05/2025 6:27 AM CDT [facility] CO2 21(L) 22 - 29 mmol/L 01/05/2025 6:27 AM CDT [facility] - . [facility] CALCIUM 9.0 8.6 - 10.2 mg/dL 01/05/2025 6:27 AM CDT [facility] BUN 7 6 - 20 mg/dL 01/05/2025 6:27 AM CDT [facility] CREATININE 0.93 0.67 - 1.17 mg/dL 01/05/2025 6:27 AM CDT [facility] - . [facility] GLUCOSE 88 74 - 99 mg/dL 01/05/2025 6:27 AM CDT [facility] - . [facility] TOTAL PROTEIN 6.4(L) 6.7 - 8.6 g/dL 01/05/2025 6:27 AM CDT [facility] - . [facility] ALBUMIN 3.9 3.5 - 5.2 g/dL 01/05/2025 6:27 AM [facility] BILIRUBIN TOTAL 0.3 0.0 - 1.2 mg/dL 01/05/2025 6:27 AM [facility] ALKALINE PHOSPHATASE 102 40 - 129 U/L 01/05/2025 6:27 AM [facility] AST 18 <41 U/L 01/05/2025 6:27 AM [facility] ALT 19 <42 U/L 01/05/2025 6:27 AM [facility] GFR >60 >=60 mL/min/1.7 3 sq meter 01/05/2025 6:27 AM [facility] Comment:eGFR calculated with 2020 CKD-EPI equation. Vegetarian diet, extremely high or low muscle mass, and may affect results. Cystatin C with Glomerular Filtration Rate is a suitable alternative for these patients. ANION GAP 13 8 - 16 mmol/L 01/05/2025 6:27 AM [facility] Blood Venipuncture / Unknown 01/05/2025 5:27 AM CDT 01/05/2025 5:36 AM T [facility] - 01/05/2025 6:27 AM CDT Samples containing indocyanine green cause interferences on Total and/or Direct Bilirubin and must not be measured. Kaylyn Sousa NP CHEMISTRY ORDERABLES Final Resul t [facility] TIARA# [id number] [address] [place] [address] * (ABNORMAL) COMPREHENSIVE METABOLIC PANEL (01/04/2025 5:15 AM CDT) SODIUM 138 136 - 145 mmol/L 01/04/2025 6:28 AM [facility] POTASSIUM 3.4(L) 3.5 - 5.0 mmol/L 01/04/2025 6:28 AM [facility] CHLORIDE 105 98 - 107 mmol/L 01/04/2025 6:28 AM [facility] - . [place] CO2 22 22 - 29 mmol/L 01/04/2025 6:28 AM [facility] - . [facility] CALCIUM 8.7 8.6 - 10.2 mg/dL 01/04/2025 6:28 AM [facility] - [facility] Comment: Significant change from prior result, correlate clinically and redraw if necessary. BUN 6 6 - 20 mg/dL 01/04/2025 6:28 AM [facility] - . [facility] CREATININE 0.92 0.67 - 1.17 mg/dL 01/04/2025 6:28 AM [facility] - . [facility] GLUCOSE 98 74 - 99 mg/dL 01/04/2025 6:28 AM [facility] - . [facility] TOTAL PROTEIN 6.0(L) 6.7 - 8.6 g/dL 01/04/2025 6:28 AM [facility] - . [facility] ALBUMIN 3.6 3.5 - 5.2 g/dL 01/04/2025 6:28 AM [facility] - . [facility] BILIRUBIN TOTAL 0.5 0.0 - 1.2 mg/dL 01/04/2025 6:28 AM [facility] - [facility] ALKALINE PHOSPHATASE 96 40 - 129 U/L 01/04/2025 6:28 AM [facility] - . [facility] AST 20 <41 U/L 01/04/2025 6:28 AM [facility] - . [facility] ALT 23 <42 U/L 01/04/2025 6:28 AM [facility] - . [facility] GFR >60 >=60 mL/min/1.7 3 sq meter 01/04/2025 6:28 AM [facility] - [facility] Comment:eGFR calculated with 2020 CKD-EPI equation. Vegetarian diet, extremely high or low muscle mass, and may affect results. Cystatin C with Glomerular Filtration Rate is a suitable alternative for these patients. ANION GAP 11 8 - 16 mmol/L 01/04/2025 6:28 AM T [facility] Blood Venipuncture / Unknown 01/04/2025 5:15 AM CDT 01/04/2025 5:41 AM CDT Narrative [facility] - 01/04/2025 6:28 AM CDT Samples containing indocyanine green cause interferences on Total and/or Direct Bilirubin and must not be measured. us Kaylyn Sousa NP CHEMISTRY ORDERABLES Final Resul t [facility] CLIA# [id number] [address] [place] [address] * EKG 12-LEAD (01/04/2025 3:46 AM CDT) 01/04/2025 3:46 AM CDT Narrative [facility]FACE SYSTEM - 01/04/2025 1:03 PM [address]T [address] [place] [address] Test Date: 2025-01-04 Pat Name: YANETH HENDERSON Department: 58 Room: [address] [place] [address] Gender: Male Insole Channeler: [id number] : 1990 Requested By: KEEGNA Godwin Order Number: [id number] Anurag POPE: Bernardo Mcwilliams Measurements Intervals [place] Rate: 56 P: 47 [place]: 149 QRS: 54 QRSD: 88 T: 65 QT: 420 QTc: 407 Interpretive Statements SINUS BRADYCARDIA WITH MARKED SINUS ARRHYTHMIA BASELINE ARTIFACT IS PRESENT Electronically Signed On 01-04-2025 13:03:23 CDT by Bernardo Mcwilliams Procedure Note Bernardo Mcwilliams MD - 01/04/2025 [address] [place] [address] Test Date: 2025-01-04 Pat Name: YANETH HENDERSON Department: 58 Room: [address] [place] [address] Gender: Male Insole Channeler: [id number] : 1990 Requested By: KEEGAN Godwin Order Number: [id number] Reading MD: Bernardo Mcwilliams Measurements Intervals [place] Rate: 56 P: 47 [place]: 149 QRS: 54 QRSD: 88 T: 65 [...] - 145 mmol/L 01/03/2025 4:23 AM T [facility] POTASSIUM 3.3(L) 3.5 - 5.0 mmol/L 01/03/2025 4:23 AM T [facility] CHLORIDE 111(H) 98 - 107 mmol/L 01/03/2025 4:23 AM T [facility] CO2 22 22 - 29 mmol/L 01/03/2025 4:23 AM T [facility] CALCIUM 7.5(L) 8.6 - 10.2 mg/dL 01/03/2025 4:23 AM T [facility] Comment:Significant change f rom prior result, correlate clinically and redraw if necessary. BUN 5(L) 6 - 20 mg/dL 01/03/2025 4:23 AM T [facility] CREATININE 0.88 0.67 - 1.17 mg/dL 01/03/2025 4:23 AM T [facility] GLUCOSE 99 74 - 99 mg/dL 01/03/2025 4:23 AM T [facility] TOTAL PROTEIN 5.1(L) 6.7 - 8.6 g/dL 01/03/2025 4:23 AM T [facility] ALBUMIN 3.3(L) 3.5 - 5.2 g/dL 01/03/2025 4:23 AM T [facility] Comment:Significant change f rom prior result, correlate clinically and redraw if necessary. BILIRUBIN TOTAL 0.4 0.0 - 1.2 mg/dL 01/03/2025 4:23 AM T [facility] ALKALINE PHOSPHATASE 87 40 - 129 U/L 01/03/2025 4:23 AM [facility] AST 14 <41 U/L 01/03/2025 4:23 AM [facility] ALT 19 <42 U/L 01/03/2025 4:23 AM [facility] GFR >60 >=60 mL/min/1.7 3 sq meter 01/03/2025 4:23 AM [facility] Comment:eGFR calculated with 2020 CKD-EPI equation. Vegetarian diet, extremely high or low muscle mass, and may affect results. Cystatin C with Glomerular Filtration Rate is a suitable alternative for these patients. ANION GAP 9 8 - 16 mmol/L 01/03/2025 4:23 AM [facility] [email or web address] [facility] Blood Venipuncture / Unknown 01/03/2025 3:20 AM CDT 01/03/2025 3:37 AM CDT Narrative [facility] - 01/03/2025 4:23 AM CDT Samples containing indocyanine green cause interferences on Total and/or Direct Bilirubin and must not be measured. us Kaylyn Sousa BABY FORMULA WORKER CHEMISTRY ORDERABLES Final Resul t [facility] [email or web address] [facility]# [id number] [address] [place] [address] * MAGNESIUM LEVEL (01/03/2025 3:20 AM CDT) MAGNESIUM 2.0 1.6 - 2.6 mg/dL 01/03/2025 4:23 AM T [facility] Blood Venipuncture / Unknown 01/03/2025 3:20 AM CDT 01/03/2025 3:37 AM CDT us Kaylyn Venancio Lars BABY FORMULA WORKER CHEMISTRY ORDERABLES Final Resul t [facility] [email or web address] SERVICES [facility]# [id number] [address] [place] [address] * (ABNORMAL) DRUG SCREEN, URINE (01/02/2025 7:42 PM CDT) [facility] AMPHETAMINE QUAL, URINE Negative Negative 01/02/2025 8:38 PM CDT [facility] LABORAT[facility] BARBITURATE QUAL, URINE Presumptive Positive(A) Negative 01/02/2025 8:38 PM CDT [facility] [email or web address] [facility] BENZODIAZEPINE QUAL, URINE Presumptive Positive(A) Negative 01/02/2025 8:38 PM CDT [facility] LABOR[facility] COCAINE QUAL URINE Negative Negative 01/02/2025 8:38 PM CDT [facility] LABOR[facility] OPIATE QUAL, URINE Negative Negative 01/02/2025 8:38 PM CDT [facility] CANNABINOIDS QUAL, URINE Presumptive Positive(A) Negative 01/02/2025 8:38 PM CDT [facility]OR[facility] PCP QUAL, URINE Negative Negative 8:38 PM CDT [facility] OXYCODONE QUAL, URINE Negative Negative 01/02/2025 8:38 PM CDT [facility] METHADONE QUAL, URINE Negative Negative 01/02/2025 8:38 PM CDT [facility] FENTANYL QUAL, URINE Negative Negative 01/02/2025 8:38 PM CDT [facility] CREATININE, URINE 247.0 40.0 - 278.0 mg/dL 01/02/2025 8:38 PM CDT [facility] Comment:Reference Range vari es with fluid intake and diet. Urine URINE SPECIMEN OBTAINED BY CLEAN CATCH PROCEDURE / Unknown Collection / Unknown 01/02/2025 7:42 PM CDT 01/02/2025 8:00 PM CDT Narrative [facility]ATORY SERVICES [facility] - 01/02/2025 8:38 PM CDT This test [...] Salgado MD URINE ORDERABLES Final Resul t [facility] SERVICES - [facility]# [id number] [address] [place] [address] * (ABNORMAL) URINALYSIS WITH REFLEX MICROSCOPIC (01/02/2025 7:42 PM CDT) COLOR UA Yellow Pale to Dark Yellow 01/02/2025 8:21 PM CDT [facility] - [facility] CLARITY UA Clear Clear 01/02/2025 8:21 PM CDT [facility] - [facility] SPECIFIC GRAVITY UA 1.024 1.003 - 1.035 01/02/2025 8:21 PM CDT [facility] PH UA 7.0 5.0 - 8.0 01/02/2025 8:21 PM CDT [facility] LEUKOCYTE ESTERASE UA Negative Negative 01/02/2025 8:21 PM CDT [facility] NITRITE UA Negative Negative 01/02/2025 8:21 PM CDT [facility] - [facility] PROTEIN UA 1+(A) Negative 01/02/2025 8:21 PM CDT [facility] - [facility] GLUCOSE UA Negative Negative 01/02/2025 8:21 PM CDT [facility] - [facility] KETONES UA Negative Negative 01/02/2025 8:21 PM CDT [facility] - [facility] UROBILINOGEN UA Normal <2.0 mg/dL 8:21 PM CDT [facility] - [facility] BILIRUBIN UA Negative Negative 01/02/2025 8:21 PM CDT [facility] - [facility] BLOOD UA Negative Negative 01/02/2025 8:21 PM CDT [facility] SERVICES - . [facility] WBC UA 0-2 0 - 2 /hpf 01/02/2025 8:21 PM CDT [facility] - . [place] RBC UA 0-2 0 - 2 /hpf 01/02/2025 8:21 PM CDT [facility] - . [place] BACTERIA UA Negative Negative /hpf 01/02/2025 8:21 PM CDT [facility] - [facility] EPITHELIAL CELLS, URINE 0-5 0 - 5 /hpf 01/02/2025 8:21 PM CDT [facility] - [facility] Urine URINE SPECIMEN OBTAINED BY CLEAN CATCH PROCEDURE / Unknown Collection / Unknown 01/02/2025 7:42 PM CDT 01/02/2025 8:14 PM CDT Keegan Salgado MD URINE ORDERABLES Final Resul t [facility] CLIA# [id number] [address] [place] [address] * MAGNESIUM LEVEL (01/02/2025 2:10 PM CDT) Pathologist [facility] MAGNESIUM 1.8 1.6 - 2.6 mg/dL 01/02/2025 2:57 PM CDT [facility]ORATORY [facility] Blood Venipuncture / Unknown 01/02/2025 2:10 PM CDT 01/02/2025 2:14 PM CDT us Kaylyn Sousa NP CHEMISTRY ORDERABLES Final Resul t [facility] CLIA# [id number] [address] [place] [address] * LIPASE (01/02/2025 9:42 AM CDT) Pathologist [facility] LIPASE 23 13 - 60 U/L 01/02/2025 10:32 AM CDT [facility] Blood Venipuncture / Unknown 01/02/2025 9:42 AM CDT 01/02/2025 9:47 AM CDT Keegan Salgado MD CHEMISTRY ORDERABLES Final R esult Performing Organization Address [facility]/ZIP Co de Phone Number [facility] LABORATORY [facility] CLIA# [id number] [address] [place] [address] * (ABNORMAL) ETHANOL LEVEL (01/02/2025 9:42 AM CDT) Pathologist [facility] ETHANOL 130.00(H) <10.10 mg/dL 01/02/2025 10:32 AM CDT [facility] ETHANOL % 0.13 %w/v 01/02/2025 10:32 AM CDT [facility] Blood Venipuncture / Unknown 01/02/2025 9:42 AM CDT 01/02/2025 9:47 AM CDT Keegan Salgado MD CHEMISTRY ORDERABLES Final R esult Performing Organization Address City/[facility] Co de Phone Number [facility] [email or web address] [facility] CLIA# [id number] [facility] MICHELLE [place]OUSA [place] [address] * (ABNORMAL) COMPREHENSIVE METABOLIC PANEL (01/02/2025 9:42 AM CDT) Pathologist [facility] SODIUM 142 136 - 145 mmol/L 01/02/2025 10:32 AM CDT [facility] POTASSIUM 3.5 3.5 - 5.0 mmol/L 01/02/2025 10:32 AM CDT [facility] CHLORIDE 102 98 - 107 mmol/L 01/02/2025 10:32 AM CDT [facility] CO2 24 22 - 29 mmol/L 01/02/2025 10:32 AM CDT [facility] CALCIUM 9.5 8.6 - 10.2 mg/dL 01/02/2025 10:[address] [facility] - . [facility] BUN 6 6 - 20 mg/dL 01/02/2025 10:32 AM [facility] CREATININE 1.11 0.67 - 1.17 mg/dL 01/02/2025 10:32 AM [facility] GLUCOSE 108(H) 74 - 99 mg/dL 01/02/2025 10:32 AM [facility]. [facility] TOTAL PROTEIN 7.7 6.7 - 8.6 g/dL 01/02/2025 10:32 AM [facility]. [facility] ALBUMIN 4.4 3.5 - 5.2 g/dL 01/02/2025 10:32 AM [facility] BILIRUBIN TOTAL 0.4 0.0 - 1.2 mg/dL 01/02/2025 10:32 AM [facility] ALKALINE PHOSPHATASE 117 40 - 129 U/L 01/02/2025 10:32 AM [facility] AST 29 <41 U/L 01/02/2025 10:32 AM [facility] ALT 36 <42 U/L 01/02/2025 10:32 AM [facility] GFR >60 >=60 mL/min/1.7 3 sq meter 01/02/2025 10:32 AM [facility] Comment:eGFR calculated with 2020 CKD-EPI equation. Vegetarian diet, extremely high or low muscle mass, and may affect results. Cystatin C with Glomerular Filtration Rate is a suitable alternative for these patients. ANION GAP 16 8 - 16 mmol/L 01/02/2025 10:32 AM [facility] [email or web address] Blood Venipuncture / Unknown 01/02/2025 9:42 AM CDT 01/02/2025 9:47 AM [facility] LABORATORY [facility] - 01/02/2025 10:32 AM CDT Samples containing indocyanine green cause interferences on Total and/or Direct Bilirubin and must not be measured. Keegan Salgado MD CHEMISTRY ORDERABLES Final R esult [facility] LABORATORY SERVICES - [facility]# [id number] [address] [place] [address] * (ABNORMAL) CBC WITH DIFFERENTIAL (01/02/2025 9:42 AM CDT) Pathologist [facility] WBC 7.6 4.0 - 9.8 K/uL 01/02/2025 10:09 AM CDT [facility] LABORATORY SERVICES - . [place] RBC 5.28 4.50 - 5.40 M/uL 01/02/2025 10:09 AM CDT [facility] LABORATORY SERVICES - . [facility] HEMOGLOBIN 15.2 13.6 - 16.5 g/dL 01/02/2025 10:09 AM CDT [facility] LABORATORY SERVICES - . [facility] HEMATOCRIT 44.6 40.0 - 48.0 % 01/02/2025 10:09 AM CDT [facility] LABORATORY SERVICES - . [facility] MCV 84.5 82.0 - 99.0 fL 01/02/2025 10:09 AM CDT [facility] LABORATORY SERVICES - . [facility] MCH 28.8 27.2 - 32.6 pg 01/02/2025 10:09 AM CDT [facility] LABORATORY SERVICES - . [facility] MCHC 34.1 31.5 - 35.5 g/dL 01/02/2025 10:09 AM CDT [facility] LABORATORY SERVICES - . [place] RDW 14.3 11.5 - 14.5 % 01/02/2025 10:09 AM CDT [facility] LABORATORY SERVICES - [facility] RDW-STDEV 43.8 37.1 - 48.7 fL 01/02/2025 10:09 AM CDT [facility] LABORATORY SERVICES - . [facility] PLATELETS 397(H) 140 - 350 K/uL 01/02/2025 10:09 AM CDT [facility] LABORATORY SERVICES - . [facility] MPV 9.3 9.3 - 12.4 fL 01/02/2025 10:09 AM CDT [facility] LABORATORY SERVICES - . [place] NEUTROPHILS 63 % 01/02/2025 10:09 AM CDT [facility] LABORATORY SERVICES - [facility] LYMPHOCYTES 26 % 01/02/2025 10:09 AM CDT [facility] LABORATORY SERVICES - . [facility] MONOCYTES 8 % 01/02/2025 10:09 AM CDT [facility] LABORATORY SERVICES - . [facility] EOSINOPHILS 2 % 01/02/2025 10:09 AM CDT [facility] LABORATORY SERVICES - . [facility] BASOPHILS 1 % 01/02/2025 10:09 AM CDT [facility] LABORATORY SERVICES - . [facility] IMMATURE GRANULOCYTES 1 % 01/02/2025 10:09 AM CDT [facility] LABORATORY SERVICES - . [facility] Comment:IG (Immature Granulo cyte) count includes Metamyelocytes, Myelocytes, and Promyelocytes NEUTROPHIL ABSOLUTE 4.79 1.90 - 7.00 K/uL 01/02/2025 10:09 AM CDT [facility] LABORATORY SERVICES - . [facility] LYMPHOCYTE ABSOLUTE 1.93 0.70 - 4.50 K/uL 01/02/2025 10:09 AM CDT [facility] LABORATORY SERVICES - . [facility] MONOCYTE ABSOLUTE 0.63 0.10 - 1.30 K/uL 01/02/2025 10:09 AM T [facility] LABORATORY SERVICES - . [facility] EOSINOPHIL ABSOLUTE 0.11 0.00 - 0.70 K/uL 01/02/2025 10:09 AM CDT [facility] LABORATORY SERVICES - . [facility] BASOPHILS ABSOLUTE 0.08 0.00 - 0.20 K/uL 01/02/2025 10:09 AM T [facility] LABORATORY SERVICES - [facility] IMMATURE GRANULOCYTES ABSOLUTE 0.04(H) 0.00 - 0.03 K/uL 01/02/2025 10:09 AM T [facility] LABORATORY [facility] Blood Venipuncture / Unknown 01/02/2025 9:42 AM CDT 01/02/2025 9:47 AM CDT Keegan Salgado MD HEMATOLOGY ORDERABLES Final Result [facility] [email or web address] [facility] CLIA# [id number] [address] [place] [address] [place] [address] * EKG 12-LEAD (01/02/2025 9:38 AM CDT) 01/02/2025 9:38 AM CDT Narrative INTERFACE SYSTEM - 01/02/2025 11:23 AM CDT [place] [id number] Test Date: 2025-01-02 Pat Name: YNAETH HENDERSON Department: 40 Room: 01 08 Gender: Male Insole Channeler: [id number] : 1990 Requested By: KEEGAN Godwin Order Number: [id number] Reading : Magan Bonilla Measurements Intervals [place] Rate: 98 P: 67 [place]: 143 QRS: 44 QRSD: 94 T: 60 QT: 361 QTc: 461 Interpretive Statements Sinus rhythm Nonspecific T abnormalities, anterior leads Electronically Signed On 01-02-2025 11:23:28 CDT by Magan Bonilla Procedure Note Magan Bonilla MD - 01/02/2025 [place] [id number] Test Date: 2025-01-02 Pat Name: YANETH HENDERSON Department: 40 Room: 01 08 Gender: Male Insole Channeler: [id number] : 1990 Requested By: KEEGAN Godwin Order Number: [id number] Reading DIXON Bonilla Measurements Intervals [place] Rate: 98 P: 67 [place]: 143 QRS: 44 QRSD: 94 T: 60 [...] Carmelita Uribe RN)1221 (Given - Provider: Carmelita Urieb RN - Comment: CI [phone] (See Alternative [...] Uribe RN)1600 (See Alternative - Provider: Carmelita Urieb RN)1800 (See Alternative - Provider: Carmelita Uribe [...] Guy RN) 0517 (Given - Provider: Elma Yi, ANNETTE) 0518 (Given - Provider: Poli Kiran, [...]
--- OUTSIDE RECORDS SUMMARY | 2025-01-05 19:14 | XMS_ITS | Clinical Summary ---
Author Organization [facility] Address [address] [place] [address] Phone Care Team Providers Care Manager Cath Lab Name Role Phone Washington Alfaro MD Primary [...] Comments Blood Pressure 109/61 06/13/2017 4:30 PM [facility] Pulse 69 06/13/2017 4:30 PM [facility] Temperature 36.9 C (98.4 F) 06/13/2017 2:05 PM [facility] Respiratory Rate 24 05/09/2017 6:07 PM [facility] Oxygen Saturation 99% 06/13/2017 4:30 PM [facility] Inhaled Oxygen Concentration - - Weight 79.4 kg (175 lb) 06/13/2017 2:05 PM [facility] Height 193 cm (6' 4) 06/13/2017 2:05 PM [facility] Body Mass Index 21.3 06/13/2017 2:05 PM [facility] Plan of Treatment Health Maintenance Due Date [...] measures to stabilize the patient. Care Teams Manager Cath Lab Relationship Specialty Start Date End Date Washington Alfaro MD PCP - General Family Medicine 02/17/17
[2025-01-05 19:31] LABS: Hematocrit 46.0 % (42.0-52.0); Hemoglobin 16.0 g/dL (14.0-18.0); Immature Granulocyte Percent A 0.5 % (0-0.5); Lymphocytes Absolute Auto 2.02 K/mm3 (0.9-3.2); Mean Corpuscular HGB Conc 34.8 g/dl (32-36); Mean Corpuscular Hemoglobin 28.4 pg (26-34); Mean Corpuscular Volume 81.7 fl (80-100); Nucleated Red Blood Cells Absolute Auto 0.000 K/mm3 (0.0-0.012); Nucleated Red Blood Cells Perc 0.0 % (0.0-0.2); Platelet Count Result 375 k/mm3 (150-375); Red Blood Count 5.63 M/mm3 (4.6-6.20); White Blood Count 11.8 K/mm3 (4.5-10.0)
[2025-01-05] MEDS: LORazepam INJ (*CRX) 2 MG/ML VIAL IV PUSH (19:35)
[2025-01-05] MEDS: ONDANSETRON INJ 4 MG/2 ML VIAL 8 MG IV PUSH (19:35)
[2025-01-05] MEDS: SODIUM CHLORIDE 0.9% IV 1,000 ML 999 ML IV CONT (19:36)
[2025-01-05 19:40] LABS: INR 0.9; Prothrombin Time 12.6 Seconds (11.1-14.7)
[2025-01-05 19:41] LABS: Partial Thromboplastin Time 27.4 Seconds (22.3-36.8)
[2025-01-05 19:43] LABS: Alanine Aminotransferase 29 U/L (6-50); Albumin Level 5.1 g/dL (3.5-5.1); Alkaline Phosphatase 97 U/L (38-126); Anion Gap 22 mmol/L (4-12); Aspartate Amino Transferase 39 U/L (17-59); Bilirubin,Total 0.6 mg/dL (0.2-1.3); Blood Urea Nitrogen 7 mg/dL (9-20); Calcium 10.1 mg/dL (8.4-10.2); Carbon Dioxide 17 mmol/L (22-30); Chloride 99 mmol/L (98-107); Estimated Glomerular Filt Rate 57; Glucose 100 mg/dL (65-110); Lipase 80 U/L (23-300); Potassium 3.8 mmol/L (3.4-5.0); Sodium 138 mmol/L (137-145); Total Protein 8.5 g/dL (6.3-8.2)
[2025-01-05] MEDS: THIAMINE HCL INJ 100 MG, FOLIC ACID INJ 1 MG, MAGNESIUM SULFATE INJ 1 GM, MULTIVITAMINS... IV CONT ×2 (19:43→22:47)
--- NOTE | 2025-01-05 20:39 | P.HP_ITS ---
H&P: HPI History of Present Illness Date/Time: 01/05/25 20:39 Chief Complaint: Nausea vomiting, alcohol abuse Narrative: This is a 34 year old male patient who is admitted to the hospital after he came to ER with repeated vomiting. Patient has history of alcohol abuse and severe anxiety. He also has history of PTSD and depression. He states his last drink of alcohol was at noon on January 05, 2025. Patient states he is homeless, living out of a car and he has no money. He states he wants to get into rehab or go to live with his aunt because they don't drink. In ER he was given IV fluids and antiemetics but still had significant nausea. Additionally, patient told ER provider that he had no money to get any more alcohol so he would go into withdrawal if he was discharged. Labs showed PRABHU with Cr of 1.43 and metabolic acidosis with Anion gap of 22 and Carbon dioxide of 17. Patient was admitted on banana bag IV fluids and IV lorazepam PRN. IV ondansetron also available. UA no signs of infection but does show 2+ ketones and >20 urine casts. UDS shows polysubstance abuse with cannabinoids, benzodiazepines (which could have just been the lorazepam he received in the ER) as well as barbiturates. Review of Systems Review of Systems: All systems reviewed & are unremarkable except as noted in HPI and below PMFSH Social History Social History Smoking packs per day: 1 Smoking cigarettes per day: 20.0 Smoking status: Former smoker Tobacco type: cigarettes Smoking end date: 07/05/16 Alcohol intake: current Drinks per week: 140 Substance use: current Substance use type: marijuana Last use: 01/04/2025 Do You Feel Safe in your Home?: Yes Lack of Transportation: YES Lack of Food: Often True Current Housing: I Do Not Have Housing Concerned About Future Housing: YES Difficulty Paying Gas/Electric Bills: YES Difficulty Paying for Meds: YES Currently Unemployed: YES Education: High School Diploma/GED Difficulty w/ Childcare or Family Care: No Spiritual care concerns: No Meds Home Medications and Allergies Home Medications ?Medication ?Instructions ?Recorded ?Confirmed ?Type diazepam 10 mg tablet 5 mg PO QID 07/04/25 07/04/25 History mirtazapine 30 mg tablet 30 mg PO Q12H 01/05/25 01/05/25 History ondansetron HCl 4 mg tablet 4 mg PO PRN 01/05/25 01/05/25 History Allergies Allergy/AdvReac Type Severity Reaction Status Date / Time haloperidol (From Haldol) Allergy Anxiety Verified 01/05/25 22:23 metoclopramide (From Reglan) Allergy Anxiety Verified 01/05/25 22:23 Vital Signs Vital Signs - 24 hr 01/05/25 18:47 Temperature 36.3 C L Pulse Rate 125 H Respiratory Rate 20 Blood Pressure 115/68 Pulse Oximetry 100 Oxygen Delivery Room Air Exam Narrative: GENERAL APPEARANCE: WELL-DEVELOPED, WELL-NOURISHED SKIN: NORMAL COLOR, WARM, DRY HEAD: NORMOCEPHALIC, NONTRAUMATIC CHEST AND RESPIRATORY: AIRWAY PATENT, NO RESPIRATORY DISTRESS, NO ACCESSORY MUSCLE USE HEART: REGULAR RATE/RHYTHM ABDOMEN: SOFT, NONTENDER, NO ORGANOMEGALY, QUIET BOWEL SOUNDS MUSCULOSKELETAL: NORMAL RANGE OF MOTION, NONTENDER BACK NEUROLOGIC: ALERT AND ORIENTED ?3, MILD TREMORS H&P: Results Labs Labs: Short CBC 01/05/25 Range/Units 19:23 WBC 11.8 H (4.5-10.0) K/mm3 Hgb 16.0 (14.0-18.0) g/dL Hct 46.0 (42.0-52.0) % Plt Count 375 (150-375) k/mm3 BMP 01/05/25 19:23 Sodium 138 Potassium 3.8 Chloride 99 Carbon Dioxide 17 L BUN 7 L Creatinine 1.43 H Glucose 100 Calcium 10.1 Liver Function 01/05/25 Range/Units 19:23 Total Bilirubin 0.6 (0.2-1.3) mg/dL AST 39 (17-59) U/L ALT 29 (6-50) U/L Alkaline Phosphatase 97 (38-126) U/L Albumin 5.1 (3.5-5.1) g/dL Pulse Oximetry SpO2 results: 97-100% on room air Attestation: I personally reviewed and interpreted this pulse oximetry as f ollows: Interpretation: No need for supplemental oxygenation at this time Assessment and Plan Assessment and plan (1) Alcoholic ketoacidosis: Code(s): E87.29 - Other acidosis Status: Acute Assessment and Plan: -Nausea/vomiting, multiple episodes prior to arrival and in ER -Urine findings consistent with dehydration -Chronic alcohol abuse, anion gap 22 with carbon dioxide of 17 -S/P IV fluid bolus and banana bag infusion -Morning labs pending (2) PRABHU (acute kidney injury): Code(s): N17.9 - Acute kidney failure, unspecified Status: Acute Assessment and Plan: -Cr 1.43, no prior labs on file -Morning labs pending (3) Homeless: Code(s): Z59.00 - Homelessness unspecified Status: Acute Assessment and Plan: -Living in his car, no money for gas or alcohol -Risk of withdrawal -Plans to try to go stay with his aunt because they do not drink there -Case Management consulted for rehab referral Quality If No VTE Prophylaxis Answer both mechanical and pharmacologic: Reason no mechanical VTE proph: low risk/not indicated Reason no pharmacologic proph: low risk/not indicated Hospitalist MIPS Advance Care Plan I have confirmed that the patient's Advanced Care Plan is present, code status is documented, or surrogate decision maker is listed in patient medical record.: Yes Medication Reconciliation I have utilized all available resources to obtain, update and review the patients current medications (includes all prescriptions, OTC, herbals, cannabis, and nutritional supplements).: Yes
[2025-01-05 20:50] LABS: Magnesium 1.9 mg/dL (1.6-2.3)
[2025-01-05 22:08] VITALS: BMI 25.0
[2025-01-05 22:11] VITALS: BP 127/82; PULSE 109; RESP 20; TEMP 37; O2SAT 97
--- NOTE | 2025-01-05 22:11 | ADMGEN ---
This patient, Jorgito Henderson, was admitted to Medical Room [facility] at 2205. Patient/family oriented to hospital policies and general routines including ID bracelet, bed and alarms, visiting hours, pain management, procedures, bathroom and other care routines, personal items, smoking policy, room service/diet, and visiting hours. Information on how to activate the Rapid Response Team has been discussed. Patient/Family are encouraged to report perceived risks to care and to ask questions if they do not understand what they are told or what they should do.
[2025-01-05] MEDS: ONDANSETRON INJ 4 MG/2 ML VIAL IV PUSH (22:19)
[2025-01-05] MEDS: LORazepam INJ (*CRX) 2 MG/ML VIAL 1 MG IV PUSH (23:49)
[2025-01-06] VITALS: PULSE 101
[2025-01-06 00:11] LABS: Beta-Hydroxybutyrate/Acetoace. 0.67 mmol/L (0.02-0.27)
[2025-01-06] MEDS: MIRTAZAPINE 30 MG TABLET PO (01:27)
[2025-01-06 02:12] LABS: Add Urine Microscopic? YES; Appearance Urine Cloudy (Clear); Cannabinoid Screen Urine Positive (Negative); Glucose Urine UA Negative (Negative); Leukocyte Esterase Ur Negative LEU/UL (Negative); Need Manual Microscopic Reviewed; Nitrate Urine Negative (Negative); Non Pathogenic Casts >20; Specific Grav Ur 1.017 (1.001-1.035)
[2025-01-06 04:00] VITALS: PULSE 84
[2025-01-06 05:02] VITALS: BP 121/84; PULSE 93; RESP 16; TEMP 36.6; O2SAT 99
[2025-01-06 05:47] LABS: Hematocrit 42.7 % (42.0-52.0); Hemoglobin 14.5 g/dL (14.0-18.0); Immature Granulocyte Percent A 0.3 % (0-0.5); Lymphocytes Absolute Auto 2.10 K/mm3 (0.9-3.2); Mean Corpuscular HGB Conc 34.0 g/dl (32-36); Mean Corpuscular Hemoglobin 28.5 pg (26-34); Mean Corpuscular Volume 83.9 fl (80-100); Nucleated Red Blood Cells Absolute Auto 0.000 K/mm3 (0.0-0.012); Nucleated Red Blood Cells Perc 0.0 % (0.0-0.2); Platelet Count Result 318 k/mm3 (150-375); Red Blood Count 5.09 M/mm3 (4.6-6.20); White Blood Count 7.3 K/mm3 (4.5-10.0)
[2025-01-06 06:09] LABS: Alanine Aminotransferase 25 U/L (6-50); Albumin Level 4.2 g/dL (3.5-5.1); Alkaline Phosphatase 89 U/L (38-126); Anion Gap 10 mmol/L (4-12); Aspartate Amino Transferase 30 U/L (17-59); Bilirubin,Total 0.7 mg/dL (0.2-1.3); Blood Urea Nitrogen 8 mg/dL (9-20); Calcium 9.0 mg/dL (8.4-10.2); Carbon Dioxide 25 mmol/L (22-30); Chloride 103 mmol/L (98-107); Estimated CRCL calculation 99 ml/min; Estimated Glomerular Filt Rate > 60; Glucose 94 mg/dL (65-110); Magnesium 2.5 mg/dL (1.6-2.3); Potassium 3.3 mmol/L (3.4-5.0); Sodium 138 mmol/L (137-145); Total Protein 7.1 g/dL (6.3-8.2)
[2025-01-06] MEDS: POTASSIUM CHLORIDE INJ 40 MEQ in SODIUM CHLORIDE 0.9% IV 500 ML 130 MEQ IVPB (06:39)
[2025-01-06 08:00] VITALS: PULSE 91
[2025-01-06] MEDS: LORazepam INJ (*CRX) 2 MG/ML VIAL 1 MG IV PUSH (08:19)
[2025-01-06 10:04] VITALS: O2SAT 99
--- NOTE | 2025-01-06 11:23 | PM.DS ---
DS: Admitting Diagnosis Discharge Date 01/06/25 Admitting Diagnosis Dehydration/ concern for alcohol withdrawal DS: Discharge Diagnosis Discharge Diagnosis (1) Alcoholic ketoacidosis: Code(s): E87.29 - Other acidosis Status: Acute (2) PRABHU (acute kidney injury): Code(s): N17.9 - Acute kidney failure, unspecified Status: Acute (3) Homeless: Code(s): Z59.00 - Homelessness unspecified Status: Acute DS: Summary Hospital Course Reason for hospitalization: dehydration/ possible alcohol withdrawal Hospital Course: Per Medical chart Admission: This is a 34 year old male patient who is admitted to the hospital after he came to ER with repeated vomiting. Patient has history of alcohol abuse and severe anxiety. He also has history of PTSD and depression. He states his last drink of alcohol was at noon on January 05, 2025. Patient states he is homeless, living out of a car and he has no money. He states he wants to get into rehab or go to live with his aunt because they don't drink. In ER he was given IV fluids and antiemetics but still had significant nausea. Additionally, patient told ER provider that he had no money to get any more alcohol so he would go into withdrawal if he was discharged. Labs showed PRABHU with Cr of 1.43 and metabolic acidosis with Anion gap of 22 and Carbon dioxide of 17. Patient was admitted on banana bag IV fluids and IV lorazepam PRN. IV ondansetron also available. UA no signs of infection but does show 2+ ketones and >20 urine casts. UDS shows polysubstance abuse with cannabinoids, benzodiazepines (which could have just been the lorazepam he received in the ER) as well as barbiturates. Hospital course: Patient was admitted to the medical unit started on a banana as well as Ativan for any potential ETOH withdrawal symptoms following day labs reviewed Trend desirable ranges however patient left AMA prior to being seen by this provider. Patient was made aware of the risks of leaving against medical advice but reported his ride was downstairs and he understood the risks left AMA. Time Spent with Patient Time attestation: Total time spent providing and/or coordinating discharge services: Exam Narrative: Unable to perform patient was not seen prior to leaving AMA DS: Data Data Completed and Pending Labs on day of discharge: Labs from last 24 hours 01/06/25 01/06/25 01/05/25 05:20 01:45 23:50 WBC 7.3 RBC 5.09 Hgb 14.5 Hct 42.7 MCV 83.9 MCH 28.5 MCHC 34.0 RDW 14.0 Plt Count 318 MPV 9.0 Immature Gran % (Auto) 0.3 Neut % (Auto) 59.6 Lymph % (Auto) 28.8 [place] % (Auto) 9.6 H Eos % (Auto) 1.0 Baso % (Auto) 0.7 Lymph # (Auto) 2.10 [place] # (Auto) 0.7 H Eos # (Auto) 0.1 Baso # (Auto) 0.1 Abs Immat Gran (auto) 0.02 Absolute Neuts (auto) 4.3 Absolute Nucleated RBC 0.000 Nucleated RBC % 0.0 PT INR APTT Sodium 138 Potassium 3.3 L Chloride 103 Carbon Dioxide 25 Anion Gap 10 BUN 8 L Creatinine 1.05 Estim Creat Clear Calc 99 Estimated GFR > 60 Glucose 94 Lactic Acid 0.9 Calcium 9.0 Magnesium 2.5 H Total Bilirubin 0.7 AST 30 ALT 25 Alkaline Phosphatase 89 Total Protein 7.1 Albumin 4.2 Lipase Beta-Hydroxybutyrate/Acetoacetate 0.67 H Urine Color Yellow Urine Appearance Cloudy H Urine pH 6.0 Ur Specific Humphrey 1.017 Urine Protein 1+ H Urine Glucose (UA) Negative Urine Ketones 2+ H Ur Blood (Man) Negative Urine Nitrate Negative Urine Bilirubin Negative Urine Urobilinogen 0.2 Add Ur Microanalysis Reviewed Leukocyte Esterase Rfl Negative Urine RBC 0-2 Urine WBC 0-5 Ur Squamous Epith Cells Occasional Urine Bacteria None seen Urine Casts >20 Urine Opiates Screen Negative Urine Methadone Screen Negative Ur Barbiturates Screen Positive A Ur Phencyclidine Scrn Negative Ur Amphetamine Screen Negative U Benzodiazepines Scrn Positive A Urine Cocaine Screen Negative U Cannabinoids Screen Positive A Ethyl Alcohol 01/05/25 19:23 WBC 11.8 H RBC 5.63 Hgb 16.0 Hct 46.0 MCV 81.7 MCH 28.4 MCHC 34.8 RDW 13.6 Plt Count 375 MPV 9.0 Immature Gran % (Auto) 0.5 Neut % (Auto) 74.8 H Lymph % (Auto) 17.1 L [place] % (Auto) 6.6 Eos % (Auto) 0.5 Baso % (Auto) 0.5 Lymph # (Auto) 2.02 [place] # (Auto) 0.8 H Eos # (Auto) 0.1 Baso # (Auto) 0.1 Abs Immat Gran (auto) 0.06 H Absolute Neuts (auto) 8.8 H Absolute Nucleated RBC 0.000 Nucleated RBC % 0.0 PT 12.6 INR 0.9 APTT 27.4 Sodium 138 Potassium 3.8 Chloride 99 Carbon Dioxide 17 L Anion Gap 22 H BUN 7 L Creatinine 1.43 H Estim Creat Clear Calc Not Reportable Estimated GFR 57 L Glucose 100 Lactic Acid Calcium 10.1 Magnesium 1.9 Total Bilirubin 0.6 AST 39 ALT 29 Alkaline Phosphatase 97 Total Protein 8.5 H Albumin 5.1 Lipase 80 Beta-Hydroxybutyrate/Acetoacetate Urine Color Urine Appearance Urine pH Ur Specific [place] Urine Protein Urine Glucose (UA) Urine Ketones Ur Blood (Man) Urine Nitrate Urine Bilirubin Urine Urobilinogen Add Ur Microanalysis Leukocyte Esterase Rfl Urine RBC Urine WBC Ur Squamous Epith Cells Urine Bacteria Urine Casts Urine Opiates Screen Urine Methadone Screen Ur Barbiturates Screen Ur Phencyclidine Scrn Ur Amphetamine Screen U Benzodiazepines Scrn Urine Cocaine Screen U Cannabinoids Screen Ethyl Alcohol 84 Discharge Plan Discharge Attending physician on discharge: Fercho Solre Consulting providers: You Mc; Mable Uriostegui Discharging Clinician: Mable Uriostegui Anticipated Discharge Date/Time: 01/06/25 11:26 Patient Disposition: Left Against Medical Advice Patient Language: Zambian Discharge Medications: No Action mirtazapine 30 mg tablet 30 mg PO Q12H diazepam 10 mg tablet 5 mg PO QID ondansetron HCl 4 mg tablet 4 mg PO PRN Date of admission: 01/05/25 21:27 Primary Care Provider: PHYSICIAN,MACHINE ZIPPER TRIMMER Admitting Provider: Fercho Soler Attending physician on admission: Fercho Soler Condition: Stable Hospitalist MIPS Heart Failure (Exclusion) Patient has history of Heart Transplant or Left Ventricular Assistive Device?: No IF YES, STOP HERE Heart Failure (Qualifier) Patient has current or prior documentation of LVEF less than or equal to 40%, or mod/servere depressed LVSF?: No IF NO, STOP HERE
== END 2025-01-06 10:10 | disposition left against medical advice (07) ==
LOC: ANHED 20:45 → ANH3MED 21:29
PROVIDERS: Nurse Practitioner; Physician Assistant; Admitting Provider Internal Medicine; Emergency Provider Emergency Medicine; Visit Provider Internal Medicine
DX: F10.188 Alcohol abuse with other alcohol-induced disorder (principal); E87.29 Other acidosis; E86.0 Dehydration; N17.9 Acute kidney failure, unspecified; F41.9 Anxiety disorder, unspecified; F43.10 Post-traumatic stress disorder, unspecified; F32.A Depression, unspecified; Z59.02 Unsheltered homelessness; Z87.891 Personal history of nicotine dependence; Z79.899 Other long term (current) drug therapy
CPT/HCPCS: 36415; 80053; 80307; 81001; 82010; 82077; 83605; 83690; 83735; 85025; 85610; 85730; 96365; 96366; 96374; 96375; 96376; 99285; A9270; G0378; J2060; J2405; J3411; J3475; J3480; J7030; J7040; J7121